=== PATIENT | female | born 1935 | race Caucasian/White ===

== ENCOUNTER 2017-08-07 18:20 | Inpatient (IN) | payer MEDICARE, BC ==
[~2017-08-07 18:20] MED LIST: ISOVUE-370 76%-LOCM 1 ML ONE
[2017-08-07 18:38] LABS: #Lymphocytes 0.4 thou/uL (1.20-3.40); #Monocytes 0.2 thou/uL (0.11-0.59); #Neutrophils 1.4 thou/uL (1.40-6.50); %Basophils 1.2 % (0.0-1.0); %Lymphocytes 18.1 % (21.0-51.0); %Monocytes 10.5 % (0.0-10.0); %Neutrophils 68.1 % (42.0-75.0); Hemoglobin 12.9 g/dL (12.0-16.0); Mean Corpuscular HGB CONC 33.7 g/dL (32.0-36.0); Mean Corpuscular Hemoglobin 29.1 pg (27.0-31.0); Mean Corpuscular Volume 86.5 fl (81.0-99.0); Mean Platelet Volume 6.5 fL (7.4-10.4); Platelet Count 218 thou/uL (130-400); RBC Distribution Width 12.1 % (11.5-14.5); Red Blood Cell (RBC) Count 4.43 mill/uL (4.20-5.40)
[2017-08-07 19:00] LABS: ALT (SGPT) 9 U/L (8-55); AST (SGOT) 15 U/L (5-34); Albumin 4.5 g/dL (3.4-4.8); Alkaline Phosphatase 46 U/L (40-150); Anion Gap 16 mmol/L (10-20); BUN (Urea Nitrogen) 30 mg/dL (9.8-20.1); Bilirubin, Total 0.6 mg/dL (0.2-1.2); Calc. Creatinine Clearance 0 mL/min (70-130); Calcium 10.6 mg/dL (7.8-10.44); Carbon Dioxide 20 mmol/L (23-31); Chloride 108 mmol/L (98-107); Estimated GFR-MDRD 39; Globulin 4.1 g/dL (2.4-3.5); Glucose 130 mg/dL (83-110); Potassium 4.5 mmol/L (3.5-5.1); Protein, Total 8.6 g/dL (6.0-8.3); Sodium 139 mmol/L (136-145)
[2017-08-07 19:05] LABS: CKMB 5.8 ng/mL (0-6.6); Troponin I Less than 0.010 ng/mL (< 0.028)
[2017-08-07] MEDS ORDERED: Ondansetron HCl/PF 4 MG/2 ML Vial ONE (19:19)
[2017-08-07] MEDS ORDERED: Sucralfate 1 GM/10 ML UDCUP ONE (19:50)
[2017-08-07 20:40] LABS: Bilirubin Negative (Negative); Blood, Urine Trace (Negative); Clarity CLOUDY (Clear); Glucose, Urine (Dipstick) Negative (Negative); Leukocyte Negative (Negative); Nitrite Negative (Negative); Protein, Urine (Dipstick) Negative (Neg-Trace); Specific Gravity, Urine 1.012 (1.002-1.036); Urobilinogen 0.2 mg/dL (0.2-1.0); pH, Urine 6.5 (5.0-9.0)
[2017-08-07 20:42] LABS: Bacteria/HPF None Seen HPF (None Seen); Squamous Epithelial 0-3 HPF (0-3)
[2017-08-07 20:43] LABS: Pathc Cast-AUWi Flag 7.12 (0-2.49)
[2017-08-07 20:51] LABS: Hyaline Casts/LPF 0-3 HYALINE CAST LPF (0-3 Hyaline)
[2017-08-07 22:05] LABS: Troponin I Less than 0.010 ng/mL (< 0.028)
--- NOTE | 2017-08-07 22:15 | CT ---
CT ABDOMEN AND PELVIS WITH IV CONTRAST: 08/07/17 HISTORY: Abdominal pain and nausea and vomiting. COMPARISON: 06/30/12 and CTA abdomen on 06/15/13. FINDINGS: There is partial visualization of cardiac pacemaking leads. The heart is mildly enlarged. There are m inimal scarring versus atelectasis at each lung base. A hiatal hernia is again present with the fundu s and proximal body of the stomach above the level of the hemidiaphragms. There is evidence of a right hemicolectomy. Small bowel colonic anastomosis seen in the mid abdomen. There are dilated fluid filled loops of small bowel with loops of bowel measuring up to [address] There is a transition to more normal caliber small bowel loops seen within the right lower quadr ant. There are postsurgical changes related to cystectomy and prior hysterectomy. There is a neobladder in the right lower quadrant right upper pelvis also seen on prior exam. There is no evidence of hydronephrosis. Subcentimeter exophytic hypodense lesions are associated with each kidney which are too small to characterize but statistically likely represents cysts. The liver , spleen, pancreas, and bilateral adrenal glands demonstrate a normal CT appearance. Vascular calcifications again seen in the abdominal aorta and iliac arteries. Postsurgical scarring in the anterior abdomen is again present. There is colonic diverticulosis. Postsurgical changes lower lumbar spine and lumbosacral junction are again present. There has been no other interval change compared to prior exams. IMPRESSION: 1. Extensive postsurgical changes of the abdomen with evidence of a partial small bowel obstruct ion with transition point in the right mid abdomen/right lower quadrant. 2. Moderate sized hiatal hernia. 3. Mild cardiomegaly. 4. Remainder of the findings are as described above. POS: [facility]
[2017-08-07] MEDS ORDERED: Ondansetron ODT 4 MG TAB SL PRN (22:34)
[2017-08-07] MEDS ORDERED: Acetaminophen 325 MG TAB PO PRN (22:34)
[2017-08-07] MEDS ORDERED: Ondansetron HCl/PF 4 MG/2 ML Vial IVP PRN (22:34)
[2017-08-07 23:06] VITALS: BMI 29.4
[2017-08-07] MEDS ORDERED: hydrALAZINE 20 MG/ML VIAL SLOW IVP PRN (23:59)
[2017-08-08 00:52] LABS: Troponin I 0.013 ng/mL (< 0.028)
[2017-08-08] MEDS: Sodium Chloride 0.9% 1,000 ML IV SCH ×2 (01:31→13:20)
[2017-08-08] MEDS ORDERED: Zolpidem Tartrate 5 MG TAB PO SCH ×3 (02:00→21:00)
[2017-08-08 05:06] LABS: ALT (SGPT) 8 U/L (8-55); AST (SGOT) 10 U/L (5-34); Albumin 3.5 g/dL (3.4-4.8); Alkaline Phosphatase 34 U/L (40-150); Anion Gap 9 mmol/L (10-20); BUN (Urea Nitrogen) 22 mg/dL (9.8-20.1); Bilirubin, Total 0.4 mg/dL (0.2-1.2); Calc. Creatinine Clearance 58 mL/min (70-130); Calcium 9.1 mg/dL (7.8-10.44); Carbon Dioxide 20 mmol/L (23-31); Chloride 114 mmol/L (98-107); Estimated GFR-MDRD 57; Globulin 2.8 g/dL (2.4-3.5); Glucose 105 mg/dL (83-110); Potassium 3.9 mmol/L (3.5-5.1); Protein, Total 6.3 g/dL (6.0-8.3); Sodium 139 mmol/L (136-145)
[2017-08-08 05:08] LABS: Band 4 % (5-11); Eosinophils 2 % (0-10); Hemoglobin 10.5 g/dL (12.0-16.0); Lymphocytes 12 % (21-51); MDiff Complete? YES; Mean Corpuscular HGB CONC 34.2 g/dL (32.0-36.0); Mean Corpuscular Hemoglobin 29.6 pg (27.0-31.0); Mean Corpuscular Volume 86.7 fl (81.0-99.0); Mean Platelet Volume 6.8 fL (7.4-10.4); Monocytes 27 % (0-10); Neutrophil 54 % (42-75); PLT Morphology Comment Appears Adequate; Platelet Count 171 thou/uL (130-400); RBC Morphology Normal; Reactive Lymphocytes 1 % (0-10); Red Blood Cell (RBC) Count 3.56 mill/uL (4.20-5.40); White Blood Cell (WBC) Count 3.2 thou/uL (4.8-10.8)
[2017-08-08] MEDS: Piperacillin/Tazobactam 4.5 GM in Sodium Chloride 0.9% 100 ML IVPB SCH ×3 (05:34→21:39)
[2017-08-08] MEDS: Heparin 5,000 UNITS/ML VIAL SC SCH ×3 (08:53→20:13)
[2017-08-08] MEDS ORDERED: Pantoprazole 40 MG VIAL IVP SCH (09:00)
[2017-08-08] MEDS ORDERED: Sotalol HCl 80 MG TAB PO SCH (09:00)
[2017-08-08] MEDS ORDERED: Famotidine/PF 20 mg/2ml Vial SLOW IVP SCH (09:00)
--- NOTE | 2017-08-08 09:26 | PDOC.PN ---
- Subjective Encounter Start Date: 08/08/17 Encounter Start Time: 08:50 Subjective: Expresses no complaint. -: Vomited last night... -: Passed some gas 2 hours ago. - Objective Resuscitation Status: Resuscitation Status FULL:Full Resuscitation Vital Signs & Weight: Vital Signs (12 hours) Temp Pulse Resp BP BP Pulse Ox 08/08/17 08:56 80 155/68 H 08/08/17 07:50 98.1 F 80 16 155/68 H 93 L 08/08/17 04:18 98.0 F 80 22 H 135/63 95 08/08/17 00:52 98.2 F 86 16 96 08/07/17 23:54 96 08/07/17 22:16 98.2 F 86 16 161/69 H 96 Weight Weight 176 lb 11.2 oz I&O: 08/07/17 08/08/17 08/09/17 06:59 06:59 06:59 Intake Total 333 Balance 333 Result Diagrams: 08/08/17 04:11 08/08/17 04:11 Phys Exam - Physical Examination Constitutional: NAD HEENT: sclera anicteric Neck: no JVD Respiratory: clear to auscultation bilateral Cardiovascular: RRR Gastrointestinal: soft (BS decreased.) Musculoskeletal: no edema Neurological: moves all 4 limbs Psychiatric: A&O x 3 Dx/Plan (1) Bowel obstruction Code(s): K56.609 - UNSP INTESTNL OBST, UNSP TO PARTIAL VERSUS COMPLETE OBST Status: Acute Plan: f/u with surgery. (2) HTN (hypertension) Code(s): I10 - ESSENTIAL (PRIMARY) HYPERTENSION Status: Acute Comment: controlled.. (3) CAD (coronary artery disease) Code(s): I25.10 - ATHSCL HEART DISEASE OF [place] CORONARY ARTERY W/O ANG PCTRS Status: Acute Plan: stable.. (4) Hypothyroidism Code(s): E03.9 - HYPOTHYROIDISM, UNSPECIFIED Status: Acute - Plan Continue current therapy -: f/u with surgery.. * .
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
[2017-08-08] MEDS ORDERED: Ondansetron HCl/PF 4 MG/2 ML Vial IVP PRN ×3 (11:39→18:52)
[2017-08-08] MEDS ORDERED: Acetaminophen 325 MG TAB PO PRN ×2 (12:00→18:52)
[2017-08-08] MEDS ORDERED: Sodium Chloride 0.9% 1,000 ML IV SCH (19:00)
[2017-08-08] MEDS ORDERED: Morphine 4 MG/ML VIAL SLOW IVP PRN (19:57)
[2017-08-08] MEDS ORDERED: HYDROcodone/Acetaminophen 5/325 mg Tablet PO PRN (19:58)
[2017-08-08] MEDS: hydrALAZINE 20 MG/ML VIAL SLOW IVP PRN (20:03)
[2017-08-08] MEDS: Pantoprazole 40 MG VIAL IVP SCH (20:11)
[2017-08-08] MEDS ORDERED: cloNIDine 0.1 MG TAB PO SCH (21:00)
[2017-08-08] MEDS: Carvedilol 6.25 MG TAB PO SCH (21:58)
[2017-08-08] MEDS: Sotalol HCl 80 MG TAB PO SCH (21:59)
[2017-08-09] MEDS ORDERED: Labetalol HCl 100 MG/20 ML VIAL SLOW IVP SCH (00:45)
[2017-08-09] MEDS: hydrALAZINE 20 MG/ML VIAL SLOW IVP PRN (04:03)
[2017-08-09] MEDS: Piperacillin/Tazobactam 4.5 GM in Sodium Chloride 0.9% 100 ML IVPB SCH ×2 (05:15→16:43)
[2017-08-09] MEDS ORDERED: Cyclobenzaprine 10 MG TAB PO PRN (08:26)
[2017-08-09] MEDS: Carvedilol 6.25 MG TAB PO SCH (08:32)
[2017-08-09] MEDS: Pantoprazole 40 MG VIAL IVP SCH (08:32)
[2017-08-09] MEDS: Sotalol HCl 80 MG TAB PO SCH (08:33)
[2017-08-09] MEDS ORDERED: Minoxidil 10 MG TAB PO SCH (09:00)
--- NOTE | 2017-08-09 09:35 | PRG ---
DATE OF SERVICE: 08/09/2017 SUBJECTIVE: Ms. Goff is upset this morning that she was not on her home meds. She has been n.p .o. She states that her nausea and vomiting has improved. Her abdominal pain is improved. She stat es that she is passing gas, although she has not had a bowel movement. PHYSICAL EXAMINATION ABDOMEN: Soft, it is less distended and nontender and she has occasional bowel sounds. IMAGING DATA: Plain film this morning does show some persistent dilation in loops of intestine, but no significant air fluid levels. There is some air in her colon. ASSESSMENT: Likely resolving partial small-bowel obstruction. My recommendation will be Gastrografi n small bowel follow through. The patient is pretty adamant that [facility] If she agrees to stay, my recommendation would be a Gastrografin small bowel follow through to c onfirm. Alternatively, could just started on clear liquids and see how she does.
--- NOTE | 2017-08-09 11:15 | RAD ---
KUB: Date: 08/09/17 INDICATION: Partial small bowel obstruction. FINDINGS: Bowel gas pattern is nonspecific, but without overt evidence of obstruction. There are surgical clips scattered within the lower abdomen and pelvis. There is an anterior lumbosacral fusion disc plate ov erlying L5-S1. Scattered degenerative change. Lung bases are clear. IMPRESSION: No acute abnormality. POS: [facility]
--- NOTE | 2017-08-09 12:28 | PQF ---
CLINICAL DOCUMENTATION IMPROVEMENT CLARIFICATION FORM: ICD-10 Updated PLEASE DO AN ADDENDUM TO THE PROGRESS NOTE WITH ANY DOCUMENTATION UPDATES OR ADDITIONS AND CARRY THROUGH TO DC SUMMARY. THANK YOU. DATE: 08/09 ATTN: DR. WILNER GILL Please exercise your independent, professional judgment in responding to the clarification form. Clinical indicators are provided on the bottom of this form for your review Please check appropriate box(s): [ ] Acute Renal Failure (ARF) / Acute Kidney Injury (STEPH) (Please specify associated condition, if applicable) [ ] Other Etiology or underlying conditions related to the diagnosis of ARF/ STEPH: [x ] Acute on Chronic Renal Failure please specify Stage of CKD ___3 (see below) [ ] CKD without ARF/STEPH please specify Stage of CKD [ ] Other diagnosis [ ] Unable to determine National Kidney Foundation Guidelines for CKD Staging Stage I Kidney damage with normal or increased GFR GFR > 90 Stage II Kidney damage with mildly decreased GFR GFR 60-89 Stage III Kidney damage with moderately decreased GFR GFR 30-59 Stage IV Kidney damage with severely decreased GFR GFR 16-29 Stage V Kidney failure GFR<15 ESRD End Stage Renal Disease On dialysis For continuity of documentation, please document condition throughout progress notes and discharge summary. Thank You. CLINICAL INDICATORS - SIGNS / SYMPTOMS / LABS BUN: 30 CR: 1.32 GFR: 39 22 .94 57 RISK FACTORS: NAUSEA/VOMITING/ DIARRHEA X3 DAYS SMALL BOWEL OBSTRUCTION TREATMENTS: 2L NS IN ER (08/07) IVF (NS 08/07 - 8) THANK YOU! Mildred (This form is maintained as a part of the permanent medical record) 2014 [employer]. All Rights Reserved Mildred Siegel RN, BSN [email or web address] Office: [phone] [facility]
--- NOTE | 2017-08-09 12:44 | PDOC.PN ---
- Subjective Encounter Start Date: 08/09/17 Encounter Start Time: 14:43 - Objective Resuscitation Status: Resuscitation Status FULL:Full Resuscitation Vital Signs & Weight: Vital Signs (12 hours) Temp Pulse Resp BP BP Pulse Ox 08/09/17 11:30 98.2 F 92 17 141/64 H 92 L 08/09/17 10:15 91 150/66 H 08/09/17 08:33 92 08/09/17 08:32 222/102 H 08/09/17 07:37 97.9 F 91 18 222/102 H 94 L 08/09/17 04:03 87 194/86 H 08/09/17 04:00 98.8 F 87 18 194/86 H 08/09/17 01:05 86 180/77 H Weight Admit Weight 176 lb 11.2 oz Weight 176 lb 11.2 oz I&O: 08/08/17 08/09/17 08/10/17 06:59 06:59 06:59 Intake Total 333 1436 Output Total 950 Balance 333 486 Result Diagrams: 08/08/17 04:11 08/08/17 04:11 Dx/Plan - Plan * . [id number] DC SUMMARY DICTATED 1. PSBO 2. UTI 3. HTN 4. AFIB plan: see orders
--- NOTE | 2017-08-09 13:02 | CON ---
DATE OF CONSULTATION: 08/08/2017 CHIEF COMPLAINT: Obstruction. HISTORY OF PRESENT ILLNESS: This is an 81-year-old female who is status post total cystectomy. She has a neobladder [place] pouch that she self catheterizations to urinate. She notes probable previou s partial small-bowel obstruction that resolved without surgery. She came to the emergency room last night because of nausea, bloating and vomiting. She has not had a bowel movement for 2 days. No si gnificant pain either last night or this morning. CT scan showed dilated small intestine consistent with partial small-bowel obstruction. PAST MEDICAL HISTORY: Hypertension, hyperlipidemia, coronary artery disease, type 2 diabetes. PAST SURGICAL HISTORY: Includes pacemaker, appendectomy, hysterectomy, tonsillectomy, left total kne e, Roxi bladder pouch and total cystectomy. MEDICINES: See list. SOCIAL HISTORY: , drinks daily. No smoking. No other drugs. FAMILY HISTORY: Noncontributory to GI malignancy or anesthetic related complications. ALLERGIES: No drug allergies. REVIEW OF SYSTEMS: Ten system review of systems otherwise negative unless described above. PHYSICAL EXAMINATION: VITAL SIGNS: Blood pressure 125/68, pulse 80, respirations 16. She is afebrile. HEENT: Sclerae are anicteric. Oropharynx clear. NECK: No lymphadenopathy. CHEST: Clear. HEART: Regular rate and rhythm. ABDOMEN: Soft, nondistended, nontender. She has active bowel sounds. There is a dressing over her pouch stoma and on the right. No obvious abdominal or inguinal hernias. EXTREMITIES: No ischemia or edema to extremities. LABORATORY DATA: White cell count is 3, hemoglobin 10, platelet count is 171. Sodium 139, potassium 3.9, creatinine 0.94. CT scan as above. ASSESSMENT: Partial small-bowel obstruction, likely resolving with active bowel sounds now, but stil l having mild nausea. PLAN: N.p.o. today except ice chips. Tomorrow if not passing gas or having a bowel movement, we maikel l obtain Gastrografin small bowel follow-through. We will follow with you.
[2017-08-09] MEDS: Heparin 5,000 UNITS/ML VIAL SC SCH ×2 (15:21→15:25)
[2017-08-09 15:58] VITALS: BP 145/66; TEMP 97.7
--- NOTE | 2017-08-09 21:29 | DIS ---
DATE OF ADMISSION: 08/08/2017 DATE OF DISCHARGE: 08/09/2017 DISCHARGE DIAGNOSES: 1. Partial small-bowel obstruction, resolved. 2. Urinary tract infection. 3. Hypertension. 4. History of atrial fibrillation. 5. Abdominal pain, resolved. DISCHARGE CONDITION: Stable. DISPOSITION: Home. DISCHARGE MEDICATION: See med rec form. HISTORY OF PRESENT ILLNESS: See HPI. CONSULTANTS DURING THE HOSPITAL STAY: General Surgery. PROCEDURE DURING HOSPITAL STAY: X-ray. ASSESSMENT AND PLAN: The patient is an 81-year-old female. 1. Partial small-bowel obstruction. The patient did have x-ray done which showed partial small-shannan l obstruction. Repeat x-ray showed it was resolved and the patient was seen by General Surgery who r ecommended Gastrografin enema, but patient refused to do it and wants to go home. Patient was starte d on liquid diet. If patient tolerates soft diet, we will go ahead and discharge the patient. 2. Hypertension. Blood pressure monitored during the hospital stay and was stable. Advised to cont inue same medications. 3. History of atrial fibrillation with a heart rate monitored during the hospital stay and was stabl e. Advised to continue home medication. 4. Urinary tract infection. The patient was treated with IV antibiotics. Cultures were negative. At that time of discharge, the patient was discharged on p.o. antibiotics. I did request that the pa tient will wait for the cultures and for the x-ray results also, patient refused to stay. I advised the patient to follow with the PCP for the culture results. The patient agreed with the plan. PHYSICAL EXAMINATION: VITAL SIGNS: Blood pressure is 141/64, heart rate is 92, pulse ox 92-94% on room air, temperature 98 .2. GENERAL: The patient is comfortable. CARDIOVASCULAR: S1, S2. RESPIRATORY: No wheezing, no rhonchi. GASTROINTESTINAL: Abdomen is soft, no guarding. Positive for bowel sounds. MUSCULOSKELETAL: No edema. NEUROLOGIC: The patient is stable at the time. DISCHARGE TIME: 40 minutes.
--- NOTE | 2017-08-16 10:29 | PQF ---
LATESHA BAKER Anil [id number] [facility]-262 [id number] CLINICAL DOCUMENTATION CLARIFICATION FORM: POST DISCHARGE Addendum to original discharge summary date: 08/09/2017 DATE: 08/16/2017 ATTN: Dr. Macdonald Please exercise your independent, professional judgment in responding to the clarification form. Clinical indicators are provided on the bottom of this form for your review Please check appropriate box(s): [ ] UTI please specify if due to or related to (as applicable): [ ] Self-catheterization [ ] Unable to determine etiology UTI Site: [ ] Kidney [ ] Ureter [ ] Bladder [ ] Urethra [ ] Unable to determine Specify Organism (if known): [ ] Unknown organism [ ] Other diagnosis (please specify) [ ] Unable to determine In addition, please specify: Present on Admission (POA): [ ] Yes [ ] No [ ] Unable to determine For continuity of documentation, please document condition throughout progress notes and discharge summary. Thank You. CLINICAL INDICATORS - SIGNS / SYMPTOMS / LABS (per H&P) UA is significant for trace ketones, trace blood, greater than 50 WBC's. Documentation: UTI RISK FACTORS (per H&P) [place] pouch due to history of bladder cancer. History self-cath every several hours at home. TREATMENT: (per medications) IV Zosyn q 8. IVF. (This form is maintained as a part of the permanent medical record) 2014 [employer]. All Rights Reserved Maria Dolores [email or web address] [phone] CARLOS A
== END 2017-08-09 17:08 | disposition home or self-care (01) | DRG 389 ==
LOC: ERS 18:20 → OBSVTOIN 21:45 → 2SW 21:45 → 2NO 08-08 15:35 → UNDODISIN 08-08 16:00
PROVIDERS: ADMIT Internal Medicine; ATTEND Internal Medicine
DX: K56.600 Partial intestinal obstruction, unspecified as to cause (principal); N39.0 Urinary tract infection, site not specified; N17.9 Acute kidney failure, unspecified; I48.0 Paroxysmal atrial fibrillation; E11.22 Type 2 diabetes mellitus with diabetic chronic kidney disease; I12.9 Hypertensive chronic kidney disease with stage 1 through stage 4 chronic kidney disease, or unspecified chronic kidney disease; N18.3 Chronic kidney disease, stage 3 (moderate); E78.5 Hyperlipidemia, unspecified; I25.10 Atherosclerotic heart disease of native coronary artery without angina pectoris; E03.9 Hypothyroidism, unspecified; Z85.51 Personal history of malignant neoplasm of bladder; Z95.0 Presence of cardiac pacemaker; Z96.652 Presence of left artificial knee joint; Z79.899 Other long term (current) drug therapy; Z90.6 Acquired absence of other parts of urinary tract
CPT/HCPCS: 36415; 74018; 74177; 80053; 81003; 81015; 82553; 83605; 83690; 84484; 85025; 87086; 93005; 93306; 94760; 96361; 96374; A4216; C9113; G8978-GP-CI; G8979-GP-CH; J0360; J1644; J2270; J2405; J2543; J7050

== ENCOUNTER 2017-09-21 13:22 | Day surgery (SDC) | payer MEDICARE, BC ==
[~2017-09-21 13:22] MED LIST changes: -ISOVUE-370 76%-LOCM 1 ML ONE; +PROPOFOL 200 MG/20 ML VIAL ONE
[2017-09-21] MEDS ORDERED: PROPOFOL 20 ML ONE (14:57)
--- NOTE | 2017-09-21 15:47 | OP ---
ELECTRICAL CARDIOVERSION: Date: 09/21/17 This patient was seen in the outpatient facility to undergo electrical cardioversion of atrial flutt er. She was given short acting propofol and when she was sedated, using one attempt at 200 joules, kylah michael was successfully converted from atrial flutter back to normal sinus rhythm. Heart rate is in the 80 s. She had atrial sensing and ventricular pacing. Blood pressure was somewhat hypotensive. Earlier in the office today, blood pressure was also hypotensive, in the 80s systolic. After the cardioversion, her blood pressure also remained on the low side. We will continue to follow her and if this does no t correct, she will be admitted. The blood pressure at this time after the cardioversion was 78/40. O 2 saturations 100%. The patient is awake and alert. She is still somewhat sedated, but is easily arou sable. There were no other complications or difficulties encountered.
--- NOTE | 2017-09-22 01:44 | DIS ---
DATE OF ADMISSION: 09/21/2017 DATE OF DISCHARGE: 09/21/2017 She was seen in the outpatient facility today after she was found to have atrial flutter today in the office with right ventricular response. She was advised to undergo an electrical cardioversion of a trial flutter back to sinus rhythm. Her other admitting diagnoses include intermittent atrial fibril lation, multiple episodes of ablations, also for ventricular tachycardia she has had an ablation and also for atrial fibrillation and possibly flutter ablations. ADMITTING DIAGNOSES: Include hypertension, diabetes and dyslipidemia. DISCHARGE DIAGNOSES: Include hypertension, diabetes and dyslipidemia. PROCEDURE IN HOSPITAL: Included electrocardioversion of atrial flutter back to normal sinus rhythm. She also has a history of pacemaker insertion. DISCHARGE MEDICATIONS: Same as her admission medications. These include Ambien, hydrocodone/acetami nophen, omeprazole, vitamin D3, Lyrica, tizanidine, Premarin, fish oil, Zyrtec, vitamin B12, Flonase, adenosine, lisinopril/hydrochlorothiazide, [place] Thyroid, potassium or KCl, clonidine, Xarelto, Cor eg, Lasix, sotalol 120 mg b.i.d. and minoxidil 10 mg b.i.d. Her medications have not changed. Please refer to the previous notes and the admission H and P for h er complete list of medications. HOSPITAL COURSE: This unfortunate 82-year-old female has intermittent atrial fibrillation and flutte r. Today, she was seen in the office with rapid ventricular response to atrial flutter and underwent electrical cardioversion today without difficulties or complications and converted back to sinus rhy thm. Blood pressure has remained on the low side. Otherwise, she has remained stable and is asympto matic with the hypotension. We will continue to follow the patient. Should she remain hypotensive, she may need to be monitored overnight and I will refer her in the future to the procedures analyst for possible repeat ablation of the atrial fibrillation or flutter.
== END 2017-09-21 16:35 | disposition home or self-care (01) ==
LOC: SDC 13:22
PROVIDERS: ATTEND Internal Medicine Cardiovascular Disease
DX: I48.4 Atypical atrial flutter (principal); I48.0 Paroxysmal atrial fibrillation; I10 Essential (primary) hypertension; I25.10 Atherosclerotic heart disease of native coronary artery without angina pectoris; E78.5 Hyperlipidemia, unspecified; E03.9 Hypothyroidism, unspecified; E11.9 Type 2 diabetes mellitus without complications; R60.0 Localized edema; Z95.0 Presence of cardiac pacemaker; Z79.01 Long term (current) use of anticoagulants; Z79.899 Other long term (current) drug therapy; Z87.891 Personal history of nicotine dependence; Z88.0 Allergy status to penicillin; Z88.2 Allergy status to sulfonamides
CPT/HCPCS: 92960; J2704

== ENCOUNTER 2019-02-27 20:20 | Inpatient (IN) | payer MEDICARE, BC ==
--- NOTE | 2019-02-27 21:08 | RAD ---
Chest AP view INDICATION: Shortness of breath history of bladder cancer COMPARISON: December 07, 2018 FINDINGS: Lungs:No consolidation is present. There is a skinfold overlying the left hemithorax. Cardiac silhouette:Moderately enlarged Pulmonary vasculature:Moderate congestion Pleural spaces:Small bilateral pleural effusions Upper abdomen:No abnormality seen. Osseous structures: Left total shoulder replacement has occurred in the interim. No acute fracture. Additional findings:Dual-lead pacemaker overlying left chest wall. IMPRESSION: Findings suggesting mild CHF.
[2019-02-27 21:09] LABS: Mean Corpuscular Volume 80.1 fL (78.0-98.0)
[2019-02-27 21:13] LABS: ALT (SGPT) 14 U/L (8-55); AST (SGOT) 24 U/L (5-34); Albumin 4.1 g/dL (3.4-4.8); Alkaline Phosphatase 54 U/L (40-110); Anion Gap 16 mmol/L (10-20); BUN (Urea Nitrogen) 24 mg/dL (9.8-20.1); Bilirubin, Total 0.8 mg/dL (0.2-1.2); Calc. Creatinine Clearance 0 mL/min (70-130); Calcium 9.6 mg/dL (7.8-10.44); Carbon Dioxide 18 mmol/L (23-31); Chloride 96 mmol/L (98-107); Estimated GFR-MDRD 34; Globulin 3.5 g/dL (2.4-3.5); Glucose 158 mg/dL (83-110); Potassium 3.9 mmol/L (3.5-5.1); Protein, Total 7.6 g/dL (6.0-8.3); Sodium 126 mmol/L (136-145)
[2019-02-27 21:29] LABS: Band 4 % (5-11); Eosinophils 5 % (0-10); Lymphocytes 24 % (21-51); MDiff Complete? YES; Mean Corpuscular HGB CONC 31.9 g/dL (32.0-36.0); Mean Corpuscular Hemoglobin 25.5 pg (27.0-31.0); Mean Platelet Volume 8.2 fL (7.4-10.4); Monocytes 10 % (0-10); Neutrophil 57 % (42-75); Platelet Count 194 thou/uL (130-400); RBC Distribution Width 13.8 % (11.5-14.5); Red Blood Cell (RBC) Count 3.93 mill/uL (4.20-5.40)
[2019-02-27 22:09] LABS: CKMB 4.2 ng/mL (0-6.6)
--- NOTE | 2019-02-27 22:25 | CT ---
CT OF THE ABDOMEN AND PELVIS WITHOUT IV CONTRAST INDICATION: Inability urinate with abdominal fullness COMPARISON: CT the abdomen and pelvis with contrast dated August 07, 2017 FINDINGS: This examination is limited for the evaluation of solid organs and vascular structures due to the lac k of intravenous contrast. ABDOMEN: Lung bases: There is a small right pleural effusion and right basilar atelectasis. There is a moderat e hiatal hernia. Liver: No focal lesion. Gallbladder: Normal appearing. Pancreas: Normal. Adrenal glands: Normal. Spleen: Normal. Kidneys and ureters: There are stable exophytic right renal cysts. There is new mild right hydronephr osis. Small left renal cysts are stable. No left-sided hydronephrosis is demonstrated. Vasculature: Stable moderate to severe calcifications involving the abdominal pelvic vasculature. Lymph nodes:No lymphadenopathy. Free fluid in abdomen:No free fluid is evident. PELVIS: Small and large bowel: Stable is scattered colonic diverticulosis. Stable postsurgical change of a ri ght hemicolectomy and ileocolonic anastomosis within the upper midline abdomen. There is no evidence of small bowel obstruction. There is a neobladder formation in the right lower quadrant of t he abdomen. Appendix:Surgically absent Bladder: Surgically absent. There is a neobladder in the right lower quadrant of the abdomen. There i s urqd-[id number]-dsktlios distention of the neobladder. Rectal and perirectal soft tissues:Normal. Reproductive structures: Surgically absent Free fluid in pelvis: No free fluid is evident. Lymphadenopathy pelvis: No lymphadenopathy is evident. Osseous structures: There is interbody fusion of L4-S1. There is scattered degenerative and osteoarth ritic change present. No acute fracture or subluxation demonstrated. Soft tissues:Mild anasarca IMPRESSION: 1. Mild to moderate distention of the neobladder. There is mild right hydronephrosis. 2. Bilateral renal cysts 3. Small right pleural effusion with mild diffuse anasarca
[2019-02-28 00:41] LABS: Troponin I 0.198 ng/mL (< 0.028)
[2019-02-28 03:18] LABS: Troponin I 0.215 ng/mL (< 0.028)
[2019-02-28] MEDS ORDERED: Acetaminophen 325 MG TAB PO PRN (03:21)
[2019-02-28] MEDS ORDERED: HYDROcodone/Acetaminophen 5/325 mg Tablet ONE ×2 (03:33→06:49)
[2019-02-28] MEDS: HYDROcodone/Acetaminophen 5/325 mg Tablet PO PRN ×3 (03:35→19:13)
[2019-02-28] MEDS ORDERED: Cyclobenzaprine 10 MG TAB PO PRN (10:51)
[2019-02-28] MEDS ORDERED: Ondansetron PF 4 MG/2 ML Vial IVP PRN (10:56)
[2019-02-28] MEDS ORDERED: Senokot S 8.6-50 MG TAB PO PRN (10:56)
[2019-02-28] MEDS ORDERED: Morphine 2 MG/ML SYRINGE SLOW IVP PRN (11:12)
[2019-02-28] MEDS ORDERED: Morphine 4 MG/ML VIAL ONE (11:38)
[2019-02-28 12:18] LABS: Albumin 4.3 g/dL (3.4-4.8); Anion Gap 15 mmol/L (10-20); BUN (Urea Nitrogen) 26 mg/dL (9.8-20.1); BUN/Creatinine Ratio 19.26; Calc. Creatinine Clearance 0 mL/min (70-130); Carbon Dioxide 24 mmol/L (23-31); Chloride 97 mmol/L (98-107); Estimated GFR-MDRD 37; Glucose 126 mg/dL (83-110); Phosphorus 3.3 mg/dL (2.3-4.7); Sodium 132 mmol/L (136-145)
--- NOTE | 2019-02-28 12:43 | HP ---
PRESENTING COMPLAINT: Abdominal discomfort and low urine output in [place] pouch and swelling of the feet. HISTORY OF PRESENT ILLNESS: The patient with a past medical history of atrial flutter fibrillation, hyperlipidemia, history of pacemaker; history of bladder cancer, status post bladder surgery and status post placement of Roxi pouch 6 years ago, presented with abdominal discomfort and less passing urine from last 1 day. As per the patient from last 10 days, she has been feeling more shortness of breath, more swelling of the feet and she went to see her commercial loan assistant, Dr. Calvert and increased her Lasix, but as per the patient, she was having abdominal discomfort and less urine output in her Roxi pouch, usually she pees 3 to 4 liters in a day , but since yesterday she has pee'd only 500 mL. Feels little nauseas. Denies vomiting or diarrhea. Also feels little chest tightness and shortness of breath and worsening swelling of the feet. Denies vomiting, feeling of little feverish. Denies any joint pain or rash. CAT scan performed in the emergency room showed a toqi-bv-[id number] distention of the neobladder, mild right hydronephrosis, bilateral renal cyst, small right pleural effusion, and mild diffuse anasarca. Chest x- ray shows suggesting mild CHF and the lab work showed mildly positive troponin with hyponatremia. The patient being admitted for further evaluation. SYSTEMIC REVIEW: As mentioned above. PAST MEDICAL HISTORY: As mentioned above. PAST SURGICAL HISTORY: 1. History of bladder cancer surgery, status post neobladder formation in 2011. 2. History of pacemaker placement. 3. The patient also had back surgery. 4. Appendicectomy. 5. Hysterectomy. 6. Left total knee replacement. 7. Thyroidectomy. 8. Left shoulder surgery. ALLERGIES: PINEAPPLE. FAMILY HISTORY: Reviewed and noncontributory. HOME MEDICATIONS: 1. Cholecalciferol. 2. Omeprazole. 3. Sotalol. 4. Zolpidem. 5. Zofran. 6. Tylenol. 7. Lyrica. 8. Fish oil. 9. Levsin. 10. Coreg. 11. Senakot. 12. Catapres. 13. Flexeril. 14. Omnicef. 15. Premarin. 16. Narco. 17. Morphine. 18. Zyrtec. 19. Minoxidil. 20. Foster Thyroid. PHYSICAL EXAMINATION: VITAL SIGNS: Blood pressure 110/66; pulse 110, irregularly irregular; and temperature 97.6. GENERAL: The patient is sitting in bed comfortably, not in any distress. Looks little weak. HEENT: Conjunctivae are normal. Oral mucosa moist. NECK: Supple. No JVD. No lymphadenopathy. CHEST: Decreased air entry bilaterally. Low lung [place]. HEART: Sound normal. ABDOMEN: The neobladder distention with abdominal distention noted. EXTREMITIES: Bilateral edema of feet positive, right more than the left. LABORATORY DATA: CBC unremarkable. Hemoglobin 10.0 and platelet 194. CMP unremarkable except sodium 126, creatinine 1.48, and blood glucose 158. Troponin 0.253 and 0.215. ProBNP 838. LFTs normal. EKG with atrial flutter with atrial fibrillation with heart rate 111. IMPRESSION: 1. Abdominal distention, abdominal discomfort most likely related to neobladder distention with right hydronephrosis. As per the patient, she self catheterizes usually, but usual than less urine passed last 24 hours. Usually, she passes around 3 to 4 liters, but only has passed 500 mL. I will get Urology evaluation if any intervention needed. 2. Acute on chronic possible diastolic congestive heart failure. 3. Status post pacemaker placement. The patient given Lasix double dosage yesterday, but did not pass much urine since yesterday . We will get Cardiology evaluation. The patient definitely has worsening swelling of the feet and edema of feet and congestive heart failure. Possible symptoms may be aggravated by less urine output by neobladder. get Cardiology evaluation. We will continue Lasix at present. Nephrology been also consulted along with Cardiology. 4. Atrial fibrillation with rapid ventricular rate. Heart rate is between 100 and 110, most likely related to abdominal discomfort. Continue home dose of sotalol and metoprolol. We will start oral anticoagulation once evaluated by Urology if no intervention needed. 5. Acute kidney injury with hyponatremia, most likely secondary to fluid overload. Nephrology been consulted for further evaluation. 6. Advanced directive discussed with the patient and daughter. The patient is DNR/DNI. Plan discussed with the patient, daughter, and nursing staff in detail. Job ID: [id number] [facility]
--- NOTE | 2019-02-28 12:52 | CON ---
DATE OF CONSULTATION: 02/28/2019 REQUESTING PHYSICIAN: Dr. Jemal Hathaway. REASON FOR CONSULTATION: Acute kidney injury and hyponatremia. HISTORY OF PRESENT ILLNESS: An 83-year-old female with multiple comorbidities including paroxysmal atrial fibrillation and sick sinus syndrome, status post pacemaker placement; bladder cancer, status post bladder resection with [place] pouch creation; hypertension; amongst others; who presented to the ED due to poor urine drainage and worsening leg swelling. The patient reported that in the last few days, she had developed worsening bilateral leg swelling associated with some difficulty breathing, hence was advised by her active directory specialist to increase her Lasix from 20 daily to 80 daily. However, despite increase in diuretics, she noticed poor urine drainage as well as ill feeling and abdominal discomfort, hence presentation to the ER. Evaluation in the ER showed paroxysmal atrial fibrillation with tachyarrhythmia as well as hyponatremia with sodium 126 as well as acute elevation in creatinine to 1.48. The patient also was found to have elevated troponin of 0.253 and BNP of 838. Further evaluation with CT scan of the abdomen and pelvis without contrast showed [id number] distention of the neobladder as well as mild right hydronephrosis. The patient is admitted by the Hospitalist Service and Nephrology is consulted for further evaluation and treatment. She reported nausea, but denied vomiting. She also denied frequent loose stools. Admitted to some chest discomfort as well as shortness of breath and abdominal discomfort, but denied fever or headache or focal weakness. She denied NSAID use or change in medications other than increase in diuretic. PAST MEDICAL HISTORY: 1. Hypertension. 2. Hyperlipidemia. 3. Coronary artery disease. 4. Atrial fibrillation. 5. Type 2 diabetes mellitus. 6. Hypothyroidism. 7. Degenerative joint disease. 8. Bladder cancer. 9. Diastolic heart failure. PAST SURGICAL HISTORY: 1. Back surgery. 2. Roxi bladder pouch creation. 3. Bladder resection. 4. Left total knee replacement. 5. Tonsillectomy. 6. Hysterectomy. 7. Appendectomy. 8. Pacemaker placement. 9. Cardioversion. FAMILY HISTORY: Significant for cardiovascular disease. SOCIAL HISTORY: The patient is . Lives with family. Drinks alcohol intermittently. Denied recreational drug use or tobacco use. ALLERGIES: PINEAPPLE. HOME MEDICATIONS: 1. Cyanocobalamin 1000 mcg p.o. daily. 2. Carvedilol 12.5 mg p.o. b.i.d. 3. Zyrtec 10 mg p.o. daily at bedtime. 4. Vitamin D 2000 units p.o. daily. 5. Clonidine 0.1 mg p.o. daily at bedtime. 6. Flexeril 10 mg p.o. t.i.d. 7. Estrogen conjugated 0.3 mg p.o. daily. 8. Fish oil 1000 mg p.o. daily. 9. Hydrocodone/acetaminophen 5/325 one to two tablets p.o. q.i.d. p.r.n. for pain. 10. Hyoscine 0.25 mg p.o. daily. 11. Lisinopril/hydrochlorothiazide 20/12.5 mg p.o. b.i.d. 12. Minoxidil 20 mg p.o. daily. 13. Omeprazole 40 mg p.o. daily. 14. Lyrica 100 mg p.o. daily at bedtime. 15. Xarelto 20 mg p.o. daily. 16. Sotalol 120 mg p.o. daily. 17. Zolpidem 10 mg p.o. daily at bedtime. REVIEW OF SYSTEMS: 12-point review of system performed was negative other than pertinent positives and negatives included in the history of present illness. PHYSICAL EXAMINATION: VITAL SIGNS: Temperature 99, pulse 110, respiratory rate 17, SpO2 of 92% on room air, blood pressure is 134/60. GENERAL: Elderly female, in mild discomfort. Afebrile. Anicteric. Acyanotic. HEENT: Normocephalic and atraumatic. Oral mucosa is moist. NECK: Supple, nontender with no masses or lymphadenopathy. CARDIOVASCULAR: Irregular rhythm and rate. Tachycardic with normal heart sounds one and two. RESPIRATORY: Fair air entry bilaterally with few bibasilar crackles. No obvious rhonchi or use of accessory muscles was appreciated. GI: Abdomen is full, soft with no obvious tenderness. Bowel sound is normoactive. Right lower quadrant ostomy noted. EXTREMITIES: Wlugknwh-rp-qlaske bilateral leg edema, right more than left noted. No obvious erythema or bruises was appreciated. BEHAVIORAL PSYCHOLOGIST: Conscious, alert, oriented x3 with appropriate mental status. Cranial nerves 2 through 12 are grossly intact. DIAGNOSTIC DATA: CBC showed WBC count of 4.0, hemoglobin of 10.0, MCV of 80, platelets of 194. CMP performed on February 27, showed sodium 126, potassium 3.9, chloride 96, CO2 of 18, BUN 24, creatinine 1.48, glucose 158, calcium 9.6, total bilirubin 0.8, AST 24, ALT 14, alkaline phosphatase 54, total protein 7.6, albumin 4.1, globulin 3.5. Of note, however, it is deferred that sodium was 138 on December 05, 2018, and creatinine also was 1.08 on December 05, 2018. Cardiac markers showed CK-MB 4.2, troponin 0.253, and BNP of 838. IMAGING STUDIES: EKG showed atrial fibrillation with controlled ventricular response of 86. No obvious ischemic changes were noted. Chest x-ray performed on February 27, 2019, showed moderate pulmonary vascular congestion as well as small bilateral pleural effusion. Features are suggestive of mild CHF. CT scan of the abdomen and pelvis without contrast showed [id number] distention of the neobladder with mild right hydronephrosis, bilateral renal cyst as well as small right pleural effusion with diffuse anasarca. ASSESSMENT: 1. Acute kidney injury: This is most likely related to hemodynamic factors from poor perfusion due to cardiac decompensation. The patient seems hypervolemic. Also, she is on lisinopril with escalation of diuretics. Oral intake in the last few days has been poor as well. 2. Hyponatremia: Acute. Sodium on presentation on February 27 was 126. Review of medical records showed the patient had normal sodium of 138 on December 05, 2018. Etiology most likely is due to appropriate and inappropriate ADH secretion from nausea and vomiting as well as from volume contraction due to poor perfusion and diuretic therapy and congestive heart failure. 3. Metabolic acidosis: Due to acute kidney injury. 4. Volume overload: Due to cardiac decompensation. 5. Atrial fibrillation with rapid ventricular response. 6. Acute on chronic heart failure. 7. Elevated troponin. 8. Right hydronephrosis with distention of neobladder. PLAN: 1. We will get urinalysis as well as urine electrolytes. We will also get urine and plasma osmolality. 2. We will get bladder scan to make sure that the neobladder is draining fully. 3. We will defer treatment of CHF to primary attending and active directory specialist. However, there is no contraindication to diuretics at this time as the patient is fluid overloaded. We will get repeat renal function panel to know the current status of electrolytes and renal function at this time. Other treatment as per primary attending, urologist, and active directory specialist. Care plan was discussed with the patient and daughter at the bedside and they verbalized understanding. Further treatment to follow depending on hospital course and review of other diagnostic test. Many thanks for involving us in the care of this patient. We will follow along with you. Job ID: [id number]
[2019-02-28 14:11] VITALS: BMI 29.8
[2019-02-28 17:08] LABS: Bilirubin Negative (Negative); Blood, Urine Moderate (Negative); Glucose, Urine (Dipstick) Negative (Negative); Leukocyte Trace (Negative); Nitrite Negative (Negative); Protein, Urine (Dipstick) Trace mg/dL (Neg-Trace); Urobilinogen 0.2 mg/dL (Less than 2)
[2019-02-28 17:09] LABS: Clarity Clear (Clear)
[2019-02-28 17:16] LABS: Bacteria/HPF 2+ HPF (None Seen); Squamous Epithelial None Seen HPF (0-3); Transitional Epithelial 0-3 HPF (None Seen)
[2019-02-28 17:25] LABS: Urine Culture Reflex Yes Yes
[2019-02-28 17:35] LABS: Creatinine, Urine 41.07 mg/dL (47-110)
[2019-02-28] MEDS ORDERED: Furosemide 20 MG/2 ML VIAL SLOW IVP SCH (18:30)
[2019-02-28] MEDS: Sotalol HCl 80 MG TAB PO SCH (19:12)
[2019-02-28] MEDS: Carvedilol 25 MG TAB PO SCH (19:13)
[2019-02-28] MEDS ORDERED: Pregabalin 25 MG CAP PO SCH (21:00)
[2019-02-28] MEDS ORDERED: Loratadine 10 MG TAB PO SCH (21:00)
[2019-02-28] MEDS ORDERED: cloNIDine 0.1 MG TAB PO SCH (21:00)
[2019-02-28] MEDS ORDERED: Zolpidem Tartrate 5 MG TAB PO SCH (21:00)
[2019-02-28] MEDS: Fish Oil 1,000 MG CAP PO SCH (21:17)
[2019-02-28] MEDS: Cefdinir 300 MG CAP PO SCH (21:18)
--- NOTE | 2019-02-28 22:27 | CON ---
DATE OF CONSULTATION: 02/28/2019 REASON FOR CONSULTATION: Abnormal CT scan, possible obstruction to urine output. HISTORY OF PRESENT ILLNESS: Ms. Goff is an 83-year-old female with a significant prior urologic history of bladder cancer, status post radical cystectomy with [place] pouch formation. She recently developed progressive lower extremity swelling and was seen by her engineering professionals, who doubled her Lasix dose. She felt that there was very little output and in fact feels that her urinary output has decreased over the last 24 to 48 hours. She has also developed some shortness of breath and worsening of the lower extremity swelling. A CT scan was performed in the emergency room for evaluation, which demonstrated some mild hydronephrosis. She states that she has had no significant difficulty with catheterizing her stoma, although at times, she gets a small output. As mentioned above, she has a significant prior urologic history of bladder cancer. She is status post cystectomy with Roxi pouch urinary diversion in [place] [address] Eric Vargas. She has been followed in our office by Dr. Singh. Her most recent laboratory at [facility] demonstrated a creatinine of 1.15 on 12/25. On 12/24/2018, her creatinine was 1.6 and her creatinines do vary in general between 0.9 and 1.8 in the month of December. CT scan in May 2018 for staging demonstrates some mild right-sided hydronephrosis. When compared to the current CT scan, there are no significant changes in the hydronephrosis or distention of the neobladder. PAST MEDICAL HISTORY: 1. Bladder cancer. 2. Congestive heart failure. 3. Hypertension. PAST SURGICAL HISTORY: 1. Thyroidectomy. 2. Hysterectomy. 3. Cholecystectomy. 4. Radical cystectomy with [place] pouch urinary diversion in 10/[address] Eric Vargas. 5. Back surgery. 6. Left shoulder surgery. 7. Left total knee replacement. 8. Pacemaker placement. CHRONIC MEDICATIONS: Include; 1. Coreg. 2. Vitamins. 3. Jyothi. 4. Lisinopril. 5. Hydrochlorothiazide. 6. Lyrica. 7. Xarelto. 8. Betapace. 9. Ambien. ALLERGIES: PINEAPPLE. REVIEW OF SYSTEMS: RESPIRATORY: Shortness of breath has been slowly worsening over the last several days. CARDIOVASCULAR: She has some mild chest tightness, but no acute pain. GASTROINTESTINAL: Denies chronic constipation or diarrhea. GENITOURINARY: Please see history of present illness. NEUROLOGIC: No history of stroke. No recent focal deficits to complain of. DERMATOLOGIC: No chronic skin issues. PHYSICAL EXAMINATION: GENERAL: She is awake and alert. She is in no distress. She appears healthy. She appears younger than her stated age. VITAL SIGNS: Blood pressure 138/82, pulse 82, respiratory rate 16. HEENT: Normocephalic, atraumatic. NECK: Supple. No masses. CHEST: Clear to auscultation. CARDIOVASCULAR: No murmurs auscultated. ABDOMEN: She has a right lower quadrant stoma. EXTREMITIES: Bilateral edema is present. I observed the patient is catheterizing her stoma, she catheterizes without difficulty. 250 mL of yellow urine obtained. Catheter was irrigated. There was very minimal mucus. LABORATORY DATA: Creatinine 1.35. White count 4, hemoglobin 10, hematocrit 31.4. IMPRESSION: Ms. Goff is an 83-year-old female with what appears to be worsening congestive heart failure. There is no evidence of urinary retention. On comparison of her CT scan today to CT scan in May 2018, there is no change noted. She has some mild right-sided hydronephrosis and hydroureter most likely related to reflux from her [place] pouch. The pouch is easily catheterizable and drains clear yellow urine. It has not distended on the CT scan. Diminished urine output is not from obstruction, but from poor urine output and poor response to her Lasix. Rather than placing a Spence catheter in the [place] pouch, which I believe will probably result in additional problems. I would recommend she continue intermittent catheterization for her urine output. This may need to be performed on a more frequent basis if she is aggressively diuresed. RECOMMENDATIONS: 1. The patient to perform intermittent catheterization for urine output. She can irrigate the catheter p.r.n. 2. No further workup is necessary for diminished urine output from urologic standpoint as there are no signs of obstruction. Job ID: [id number]
[2019-03-01 06:22] LABS: ALT (SGPT) 10 U/L (8-55); AST (SGOT) 15 U/L (5-34); Albumin 3.6 g/dL (3.4-4.8); Alkaline Phosphatase 44 U/L (40-110); Anion Gap 13 mmol/L (10-20); BUN (Urea Nitrogen) 20 mg/dL (9.8-20.1); Bilirubin, Total 0.7 mg/dL (0.2-1.2); Calc. Creatinine Clearance 45 mL/min (70-130); Calcium 9.2 mg/dL (7.8-10.44); Carbon Dioxide 23 mmol/L (23-31); Chloride 99 mmol/L (98-107); Estimated GFR-MDRD 42; Glucose 101 mg/dL (83-110); Potassium 3.9 mmol/L (3.5-5.1); Protein, Total 6.6 g/dL (6.0-8.3); Sodium 131 mmol/L (136-145)
[2019-03-01 06:39] LABS: Band 1 % (5-11); Eosinophils 10 % (0-10); Hemoglobin 9.4 g/dL (12.0-16.0); Lymphocytes 24 % (21-51); MDiff Complete? YES; Mean Corpuscular HGB CONC 32.6 g/dL (32.0-36.0); Mean Platelet Volume 7.5 fL (7.4-10.4); Monocytes 14 % (0-10); Neutrophil 51 % (42-75); Platelet Count 183 thou/uL (130-400); RBC Distribution Width 13.5 % (11.5-14.5); Red Blood Cell (RBC) Count 3.61 mill/uL (4.20-5.40); White Blood Cell (WBC) Count 2.9 thou/uL (4.8-10.8)
[2019-03-01] MEDS ORDERED: Loratadine 10 MG TAB PO SCH (09:00)
[2019-03-01] MEDS ORDERED: Furosemide 20 MG TAB PO SCH (09:00)
[2019-03-01] MEDS ORDERED: FLU VACC TS2019-20(65YR UP)/PF 180 MCG/0.5 ML SYRINGE IM ONE (09:00)
[2019-03-01] MEDS ORDERED: Minoxidil 10 MG TAB PO SCH (09:00)
[2019-03-01] MEDS ORDERED: Rivaroxaban 10 MG TAB PO SCH (09:00)
[2019-03-01] MEDS ORDERED: Estrogens, Conjugated 0.3 MG TAB PO SCH (09:00)
[2019-03-01] MEDS ORDERED: Thyroid 30 MG TAB PO SCH (09:00)
[2019-03-01] MEDS: Sotalol HCl 80 MG TAB PO SCH (10:15)
[2019-03-01] MEDS: Fish Oil 1,000 MG CAP PO SCH (10:16)
[2019-03-01] MEDS: Cefdinir 300 MG CAP PO SCH (10:16)
[2019-03-01] MEDS: Carvedilol 25 MG TAB PO SCH (10:18)
[2019-03-01] MEDS ORDERED: Furosemide 20 MG/2 ML VIAL SLOW IVP SCH (11:15)
--- NOTE | 2019-03-01 11:34 | PRG ---
DATE OF SERVICE: 03/01/2019 SERVICE: Nephrology. SUBJECTIVE: 83-year-old female with bladder cancer status post resection and Roxi pouch creation, hypertension, diabetes, and diastolic heart failure, admitted with worsening edema and poor urine output. Found to have CHF. Nephrology seen the patient for acute kidney injury. The patient reports feeling better. Swelling has improved. OBJECTIVE: VITAL SIGNS: Temperature 98.0, pulse 64, respiratory rate 16, SpO2 of 94% on room air, and blood pressure is 145/72. GENERAL: Elderly female, in no distress. Afebrile. SKIN: Anicteric. Acyanotic. HEENT: Normocephalic, atraumatic. Oral mucosa is moist. CARDIOVASCULAR: Regular rhythm and rate with normal heart sounds 1 and 2. Systolic murmur noted. RESPIRATORY: Fair air entry bilaterally with some bibasilar crackles and some transmitted breath sounds. No rhonchi or use of accessory muscles appreciated. GI: Abdomen is full, soft, nontender, nondistended with normal bowel sounds. Right lower quadrant ostomy noted. EXTREMITIES: Mild to moderate bilateral leg edema noted, right more than left. DIAGNOSTIC DATA: CBC today showed WBC count of 2.9, hemoglobin of 9.4, MCV of 80.0, and platelet count of 183. CMP showed sodium 131, potassium 3.9, chloride 99, CO2 23, BUN 20, creatinine 1.23, glucose 101, calcium 9.2, albumin 3.6, total protein 6.6, globulin 3.0, total bilirubin 0.7, AST 15, ALT 10, and alkaline phosphatase 44. Serum osmolality is 287 and urine osmolality is 204. Urinalysis on February 28 showed moderate blood and trace leukocyte esterase with negative bilirubin, nitrite, ketones and glucose. Microscopy showed 4 to 6 rbc's and 11 to 20 wbc's with 2+ bacteria. Urine electrolytes showed random total protein of 21 mg/dL. Urine creatinine of 41.07. Urine sodium of 25 and urine urea nitrogen of 311. ASSESSMENT: 1. Acute kidney injury: This is due to hemodynamic factors related to poor perfusion from cardiac decompensation. Renal function is improving with diuretics and improvement of volume status. 2. Hyponatremia: Due to appropriate ADH due to intravascular depletion. Sodium is currently up to 131. 3. Metabolic acidosis due to acute kidney injury, improved. 4. Volume overload. Some improvement with diuretic therapy. 5. Mild right hydronephrosis: Thought to be due to reflux into the neobladder. Urology following. No intervention planned. 6. Metabolic acidosis, atrial fibrillation with rapid ventricular response and acute on chronic heart failure and elevated troponin as per Cardiology and primary attending. PLAN: I agree with diuretic therapy. We will give additional 20 mg of IV Lasix. We will monitor electrolytes and renal function. Further treatment as per primary attending. The patient can be discharged from Nephrology point of view with a close followup in 1 week with repeat lab. We will get renal function panel in the morning as well as iron chemistry if the patient is still here in the morning. Job ID: [id number]
[2019-03-01 12:18] VITALS: TEMP 97.5
[2019-03-01 17:36] VITALS: BP 125/62
[2019-03-01] MEDS ORDERED: tiZANidine HCl 4 MG TAB PO SCH (21:00)
--- NOTE | 2019-03-01 23:08 | DIS ---
DATE OF ADMISSION: 02/28/2019 DATE OF DISCHARGE: 03/01/2019 DISCHARGE DIAGNOSES: 1. Abdominal distention, resolved. 2. 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 3. Acute on chronic diastolic congestive heart failure. 4. History of pacemaker placement. 5. Atrial fibrillation with rapid ventricular rate. 6. Acute kidney injury with hyponatremia, improved. 7. DNR/DNI. 8. Positive troponin, possibly demand supply mismatch. PHYSICAL EXAMINATION: VITAL SIGNS: Blood pressure 125/62, temperature 97.5, pulse 86, respirations 16, oxygen saturation 93% on room air. GENERAL: The patient is alert, awake, and oriented, in no distress. CHEST: Normal vesicular breathing. HEART: Sounds normal. ABDOMEN: Mildly distended. Neobladder site not tender. EXTREMITIES: Mild edema of feet, positive bilateral lower extremities. LABORATORY DATA: CBC unremarkable except white blood cell 2.9, hemoglobin 9.4, platelets 183. BMP unremarkable except sodium 131, creatinine 1.23. On admission, creatinine 1.48. Troponin 0.253, 0.198, 0.215. ProBNP 838. UA, white blood cells 11 to 20, rbc's trace. Urine culture negative for 24 hours. Chest x-ray, mild congestion. Abdomen and pelvis CT scan, [id number] distention of the neobladder. There is mild right hydronephrosis, bilateral renal cyst, small right pleural effusion with mild diffuse anasarca. EKG, atrial fibrillation with heart rate of 109 on tele on admission. HISTORY OF PRESENT ILLNESS: The patient with a past medical history of atrial fibrillation; history of bladder cancer, status post neobladder placement 6 years ago; history of diastolic congestive heart failure; presented with worsening shortness of breath for 2 weeks and abdominal distention, abdominal discomfort for 1 days. As per patient, she self catheterizes neobladder, but from last 1 day, she has been passing less urine as compared to normal. Normally, she passes 3 to 4 L, but she passed only 500 L before admission. The patient was also seen by outpatient certified teacher assistant once a day and again treated with diuretics and patient on admission was found to be having also hyponatremia and mild STEPH. The patient was evaluated by Cardiology and Nephrology and Urology. Urology recommended no further workup and recommended to continue same therapy and followup as outpatient with primary urologist. Agronomy Location Manager also evaluated the patient. Patient's sodium is improving, currently 131 and patient also continued her home medications. Heart rate is better. Today, patient feeling much better. Edema is improving. The patient cleared by Cardiology, Nephrology, and Urology, being discharged home and patient advised to follow up with Cardiology and Nephrology in 1 week. Plan discussed with the patient, family member, and primary. I personally discussed the case with primary certified teacher assistant on the phone. Job ID: [id number]
--- NOTE | 2019-03-02 07:38 | CON ---
DATE OF CONSULTATION: 03/01/2019 REASON FOR CONSULTATION: Atrial flutter/atrial fibrillation. HISTORY OF PRESENT ILLNESS: Ms. Goff is an 83-year-old woman with significant history of bladder cancer with prior cystectomy and Roxi pouch formation. She had been having some lower extremity swelling and was seen by her music typographer and her Lasix was increased. She had very little urinary output and was concerned with this output over the past 24 to 48 hours. She has a stoma that she self caths through and went to the emergency room for further evaluation. She had a CT performed that showed some mild hydronephrosis and Urology has been consulted. Since she has been on telemetry, she has been seen to have recurrent atrial arrhythmias and most recently in atrial flutter, somewhat sustained and rapid at approximately 120 beats per minute. She has a dual-chamber pacemaker that was placed in 2013 for sick sinus syndrome. Ms. Goff is currently resting in a chair upright and feeling well. She denies any heart racing, palpitations, chest pain, pressure, syncope, near syncope, stroke, or stroke-like symptoms. She reports that she came to the hospital on the and had missed at least 24 hours of sotalol, correlating with the recurrence of her atrial flutter. She does not have any cardiac concerns or complaints today. Her largest concern is her low urine output and increased swelling. REVIEW OF SYSTEMS: A 12-point review of systems was conducted and is negative except that listed above in HPI. PAST MEDICAL HISTORY: 1. Atrial arrhythmias, status post 3 prior left atrial ablated procedures for atrial fibrillation and flutter, initially in October 2014, redo in April of 2015, redo in August of 2015. Left atrial appendage was ablated without isolation. 2. Sick sinus syndrome, status post dual-chamber pacemaker placed in 2013. 3. Severe biatrial enlargement. 4. Coronary artery disease. 5. Hypertension. 6. Dyslipidemia. 7. Hypothyroidism. 8. Urinary stoma. 9. Bladder cancer. 10. Moderate to severe tricuspid regurgitation. 11. Moderate to severe pulmonary hypertension by echo in November of 2015. HOME MEDICATIONS: 1. Vitamin D3 b.i.d. 2. Tizanidine 4 mg at bedtime. 3. Clonidine 0.1 mg p.r.n. 4. Ambien at bedtime 10 mg. 5. Sotalol 120 mg p.o. b.i.d. 6. Xarelto 20 mg p.o. daily. 7. Lyrica 100 mg at bedtime. 8. Omeprazole daily. 9. Minoxidil 20 mg daily. 10. Claritin daily. 11. Bon[place]arte q.p.m. 12. Furosemide 20 mg daily. 13. Fish oil b.i.d. 14. B12, 1000 mcg IM weekly. 15. [place] Thyroid 150 mg daily. 16. Levsin two tablets daily. 17. Zyrtec 10 mg at bedtime. 18. Carvedilol 25 mg p.o. b.i.d. ALLERGIES: SULFA, DIGOXIN, MORPHINE, DILTIAZEM, AND MULTAQ, AND PINEAPPLE. FAMILY HISTORY: Noncontributory. SOCIAL HISTORY: Denies alcohol or tobacco or illicit drug use. OBJECTIVE: VITAL SIGNS: Temperature 98.0 degrees Fahrenheit, pulse 64, blood pressure 145/72, respirations 16, and oxygen is 94% on room air. PHYSICAL EXAMINATION: GENERAL: The patient is alert and oriented. Speech is clear. Affect is appropriate. She is in no apparent distress, sitting upright during the exam. NECK: Supple with mild jugular venous distention. HEART: Rate is regularly regular with crisp S1 and S2. Tricuspid regurgitation murmur is heard along the left sternal border. LUNGS: Clear to auscultation, but do have some crackles in the bases. ABDOMEN: Distended. Hepatojugular reflux is positive. EXTREMITIES: Warm and dry to touch without clubbing or cyanosis, but 2+ pitting edema is noted bilaterally. NEUROLOGIC: Grossly intact. Nonfocal. Gait is not assessed. She has a left-sided pacemaker inside without reaction. DATA BASE: Laboratory: Hemoglobin 9.4, WBC 2.9, platelet count is 183. Chemistry; sodium 131, creatinine 1.23. ALT and AST are within normal limits. BNP on admission was 838. Telemetry and EKGs were all personally reviewed and currently reflect sinus rhythm with demand pacing, episodes of atrial flutter are seen, somewhat regular but with Wenckebach conduction. IMPRESSION: 1. Recurrent atrial arrhythmias with a history of persistent atrial fibrillation, status post 3 prior left atrial ablations, most recently in August 2015. a. Good suppression with sotalol in the past with recent interruption in therapy for greater than 24 hours, correlating with the time of recurrence with arrhythmias on 02/27. b. Chronic oral anticoagulation on Xarelto, currently on hold. 2. Acute on chronic diastolic heart failure. 3. Urinary bladder stoma. 4. Adequate function of Adapta [employer] pacemaker, dual-chamber, showing good arrhythmia control until 02/27, when atrial arrhythmia recurrences began. Otherwise, solitary event in October was seen. PLAN AND RECOMMENDATIONS: 1. Agree with diuresis and optimizing her fluid status. 2. Resume sotalol and we will continue to monitor both on telemetry and through her pacemaker. She was well suppressed with sotalol in the past until this recent interruption and heart failure exacerbation, so her recurrence is likely multifactorial. If sotalol is inadequate in continuing to suppress her atrial arrhythmias, we could consider redo PVAI or consider alternate antiarrhythmic therapy. We will continue to monitor and we will schedule her a followup appointment in our clinic in the near future. She will need to continue her oral anticoagulation upon discharge and resume in this hospital stay whenever is deemed safe. Her oral anticoagulation is currently on hold, possibly for consideration of some kind of procedure, though this was unclear. Thank you for allowing me to participate in the care of this patient. Dictated by Lissa Styles PA-C for Dr. Victoria. Job ID: [id number]
--- NOTE | 2019-03-02 09:05 | PQF ---
LATESHA BAKER Muhammad MD [id number] [id number] CLINICAL DOCUMENTATION CLARIFICATION FORM: POST DISCHARGE Addendum to original discharge summary date: ____ Late entry note date: __ DATE: 03/08/2019 ATTN: Jemal Hathaway MD Please exercise your independent, professional judgment in responding to the clarification form. Clinical indicators are provided on the bottom of this form for your review Please check appropriate box(s): AMI TYPE: [ ] Acute Coronary Syndrome (ACS) without Acute IL meaning Unstable Angina [ ] NSTEMI (IL type I) [ ] NSTEMI due to Demand Ischemia (AMI Type II) [ ] Demand Ischemia without IL [ ] STEMI (please also specify site and arterysee below) If STEMI, SITE:[ ] Anterior [ ] Apical [ ] Lateral [ ] Inferior [ ] Posterior [ ] Q Wave [ ] Septal [ ] Unable to Determine SPECIFIC ARTERY (Based on site) [ ] Left Main Coronary[ ] Diagonal [ ] Left Anterior Descending[ ] Oblique Marginal [ ] Right Coronary Artery[ ] Unable to Determine [ ] Left Circumflex ONSET OF INFARCTION: [ ] Onset Less than 4 weeks of admission [ ] Onset Greater than 4 weeks of admission [ ] Unable to determine DUE TO (if applicable): [ ] Stent occlusion [ ] In-Stent stenosis [ ] Occlusion of coronary bypass graft [ ] Complication of PCI [ ] Underlying CAD [ ] Other [ ] Other diagnosis [ ] Unable to determine In addition, please specify: Present on Admission (POA): [ ] Yes [ ] No [ ] Unable to determine CLINICAL INDICATORS - SIGNS / SYMPTOMS / LABS - positive troponin, possible demand supply mismatch--DS, 03/01, Mag gamez MD --Interminate troponins-ED record, 02/27 - mildly positive troponin with hyponatremia- H&P, 02/28, Mag gamez MD - EF is visually estimated at 55-60%-ECHO, 1030 - Trace mitral regurgitaion is present-ECHO, 1030 RISKS: -Acute on chroni diastolic heart failure-DS, 03/01, Mag gamez MD --Atrial fibrillation with rapid ventricular rate -H&P, 02/28, Mag gamez MD TREATMENTS: -Furosemide.IV-JUL,03/01 (This form is maintained as a part of the permanent medical record) 2014 [employer]. All Rights Reserved Antelmo Cortez [not provided] [not provided] MTDD
== END 2019-03-01 19:28 | disposition home or self-care (01) | DRG 682 ==
LOC: ERS 20:20 → ERHOLD 23:00 → 2NO 02-28 00:08 → OBSVTOIN 02-28 10:56 → 2NO 02-28 14:09
PROVIDERS: ADMIT Internal Medicine; ATTEND Internal Medicine
DX: N17.9 Acute kidney failure, unspecified (principal); I50.33 Acute on chronic diastolic (congestive) heart failure; E87.1 Hypo-osmolality and hyponatremia; E87.2 Acidosis; N13.30 Unspecified hydronephrosis; I11.0 Hypertensive heart disease with heart failure; Z66 Do not resuscitate; I48.0 Paroxysmal atrial fibrillation; E03.9 Hypothyroidism, unspecified; C67.9 Malignant neoplasm of bladder, unspecified; Z96.652 Presence of left artificial knee joint; Z96.612 Presence of left artificial shoulder joint; Z79.01 Long term (current) use of anticoagulants; Z95.0 Presence of cardiac pacemaker; Z90.49 Acquired absence of other specified parts of digestive tract; Z90.710 Acquired absence of both cervix and uterus; Z87.891 Personal history of nicotine dependence
CPT/HCPCS: 36415; 36416; 71045; 74176; 80053; 80069; 81001; 82553; 82570; 83880; 83930; 83935; 84156; 84300; 84484; 84540; 85025; 87086; 90471; 90662; 93005; 93306; 96374; G0008; J1940; J2270

== ENCOUNTER 2019-03-22 20:37 | Inpatient (IN) | payer MEDICARE, BC ==
[~2019-03-22 20:37] MED LIST changes: +Iopamidol 370 76% 100 ML VIAL ONE; -PROPOFOL 200 MG/20 ML VIAL ONE
[2019-03-22 21:28] LABS: Hemoglobin 9.8 g/dL (12.0-16.0); Mean Corpuscular HGB CONC 32.3 g/dL (32.0-36.0); Mean Corpuscular Hemoglobin 24.7 pg (27.0-31.0); Mean Corpuscular Volume 76.5 fL (78.0-98.0); Mean Platelet Volume 8.1 fL (7.4-10.4); Platelet Count 170 thou/uL (130-400); RBC Distribution Width 14.4 % (11.5-14.5); Red Blood Cell (RBC) Count 3.97 mill/uL (4.20-5.40); White Blood Cell (WBC) Count 3.3 thou/uL (4.8-10.8)
[2019-03-22] MEDS ORDERED: Morphine 4 MG/ML VIAL ONE (21:29)
--- NOTE | 2019-03-22 21:31 | RAD ---
EXAM: Chest one view: HISTORY: Abdominal pain with nausea and vomiting COMPARISON: 02/27/2019 FINDINGS: Left ICD. Status post left shoulder reverse arthroplasty. Heart size: Enlarged with mild vascular congestion. Lungs: Clear of acute process. No evidence for confluent pneumonia, pleural effusion, acute edema, or pneumothorax, or other signifi cant acute process. IMPRESSION: No significant acute intrathoracic disease. Overall stable appearance.
[2019-03-22 21:47] LABS: Eosinophils 5 % (0-10); Lymphocytes 20 % (21-51); MDiff Complete? YES; Monocytes 14 % (0-10); Neutrophil 61 % (42-75); Platelet Morphology Comment Appears Adequate
[2019-03-22 21:48] LABS: ALT (SGPT) 9 U/L (8-55); AST (SGOT) 16 U/L (5-34); Alkaline Phosphatase 45 U/L (40-110); Anion Gap 17 mmol/L (10-20); BUN (Urea Nitrogen) 16 mg/dL (9.8-20.1); Bilirubin, Total 1.2 mg/dL (0.2-1.2); Calc. Creatinine Clearance 0 mL/min (70-130); Calcium 9.3 mg/dL (7.8-10.44); Carbon Dioxide 25 mmol/L (23-31); Chloride 99 mmol/L (98-107); Estimated GFR-MDRD 42; Globulin 3.2 g/dL (2.4-3.5); Glucose 124 mg/dL (83-110); Lipase 10 U/L (8-78); Potassium 3.6 mmol/L (3.5-5.1); Protein, Total 7.2 g/dL (6.0-8.3); Sodium 137 mmol/L (136-145)
[2019-03-22 22:11] LABS: CKMB 1.4 ng/mL (0-6.6)
--- NOTE | 2019-03-22 22:40 | CT ---
EXAM: Abdomen and pelvic CT scan with contrast: HISTORY: Abdominal pain for 3 days COMPARISON: 02/27/2019 FINDINGS: Moderate size hiatal hernia. Right pleural effusion and right lower lobe pleural-based parenchymal changes. Extensive postoperative changes involving the upper abdomen lower abdomen and spine. Liver: Unremarkable. Gallbladder:Unremarkable. Pancreas:Unremarkable Spleen:Unremarkable. Adrenal glands:Unremarkable. Kidneys:No renal calculus or acute obstruction. Stable right renal cyst. Status post cystectomy with a right sided neural bladder and ostomy. Stable minimally enlarged right groin lymph nodes. No evidence for large or small bowel obstruction. Bilateral lower pelvis stable mostly fatty-replaced lymph nodes. No CT evidence for acute appendicitis. Cystectomy. Reproductive system:Unremarkable No abscess, adenopathy, or abnormal fluid collection within the abdomen or pelvis. Fat-containing left inguinal hernia. IMPRESSION: Extensive postoperative changes as well as numerous other findings as above. Appearance is stable fro m prior exam.
[2019-03-23] MEDS ORDERED: hydrALAZINE 20 MG/ML VIAL SLOW IVP PRN (01:33)
[2019-03-23] MEDS ORDERED: Ondansetron PF 4 MG/2 ML Vial IVP PRN ×2 (01:33)
[2019-03-23] MEDS ORDERED: Ondansetron ODT 4 MG TAB PO PRN (01:33)
[2019-03-23] MEDS ORDERED: Ondansetron ODT 4 MG TAB SL PRN (01:33)
[2019-03-23] MEDS ORDERED: Acetaminophen 500 MG TAB PO PRN (01:33)
[2019-03-23 01:38] VITALS: BMI 29.0
--- NOTE | 2019-03-23 03:23 | HP ---
PRIMARY CARE PROVIDER: Mingo Rosenberg DO CHIEF COMPLAINT: Abdominal pain with nausea and vomiting. HISTORY OF PRESENT ILLNESS: This is an 83-year-old female, who was recently admitted to [facility] from February 28, 2019 to March 01, 2019 for abdominal distention, and abdominal pain in the context of chronic neobladder distention and mild right hydronephrosis due to history of bladder cancer, status post resection with neobladder reconstruction. The patient states since her discharge, she has felt overall weak with poor appetite. The patient admitted to increasing abdominal pain with some distention; however, continues her neobladder catheterizations every 4 hours during the daytime. The patient states she has had excellent urine output with her chronic use of Lasix. The patient admitted to nausea and emesis; however, due to poor oral intake, states she was mainly dry heaving over the last 48 hours. The patient saw her primary show girl, Dr. Calvert, who increased her dose of Lasix in the last several days prior to this evaluation and patient admitted to approximately 2.5 L of urine output. The patient denied any specific fever, chills, exposure history, or family members with similar symptoms. The patient denied any change to her bowel habits. The patient reports her last bowel movement was in the household personal assistant hours of 03/22/2019. In the emergency room, the patient underwent general evaluation including CT of the abdomen and pelvis showing chronic changes consistent with prior surgical history and neobladder findings, but no acute process identified. The patient received Tylenol 650 mg in addition to morphine sulfate and was referred to the Hospitalist Service for evaluation. PAST MEDICAL HISTORY: 1. 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 2. Chronic diastolic congestive heart failure. 3. Chronic abdominal distention. 4. Chronic atrial fibrillation with chronic anticoagulation with Xarelto. 5. Chronic kidney disease, stage 3. 6. History of bladder cancer, status post neobladder creation. PAST SURGICAL HISTORY: 1. Status post appendectomy. 2. Status post back surgery. 3. Status post pacemaker placement. 4. Status post neobladder formation. 5. Status post hysterectomy. 6. Status post left total knee arthroplasty. 7. Status post thyroidectomy. 8. Status post left shoulder repair. CURRENT MEDICATIONS: 1. Coreg 25 mg p.o. b.i.d. 2. Zyrtec 10 mg p.o. at bedtime. 3. Vitamin D3 2000 units p.o. b.i.d. 4. Clonidine 0.1 mg p.o. at bedtime p.r.n. 5. Vitamin B12 1000 mcg IM q.7 days. 6. Cardale-3 fatty acids 1000 mg p.o. b.i.d. 7. Levsin 0.125 mg 2 tablets p.o. daily p.r.n. 8. Minoxidil 20 mg p.o. daily. 9. Omeprazole 40 mg p.o. daily. 10. Lyrica 100 mg p.o. at bedtime. 11. Xarelto 20 mg p.o. daily. 12. Sotalol 120 mg p.o. b.i.d. 13. [place] Thyroid 150 mg p.o. daily. 14. Tizanidine 4 mg p.o. at bedtime. 15. Ambien 10 mg p.o. at bedtime p.r.n. 16. Lasix 40 mg p.o. daily. ALLERGIES: PINEAPPLE. FAMILY HISTORY: Positive for hypertension. SOCIAL HISTORY: Resides in the [facility] ([place], [place]). Lives independently, but her daughter assists as needed. Former tobacco use, quitting more than 10 years prior to this evaluation. Occasional alcohol use. No illicit drug use. REVIEW OF SYSTEMS: CONSTITUTIONAL: Negative for weight loss or gain, ability to conduct usual activities. SKIN: Negative for rash, itching. EYES: Negative for double vision, pain. ENT/MOUTH: Negative for nose bleeding, neck stiffness, pain, tenderness. CARDIOVASCULAR: Negative for palpitations, dyspnea on exertion, orthopnea. RESPIRATORY: Negative for shortness of breath, wheezing, cough, hemoptysis, fever or night sweats. GASTROINTESTINAL: Negative for poor appetite, abdominal pain, heartburn, nausea, vomiting, constipation, or diarrhea. GENITOURINARY: Negative for urgency, frequency, dysuria, nocturia. MUSCULOSKELETAL: Negative for pain, swelling. NEUROLOGIC/PSYCHIATRIC: Negative for anxiety, depression. ALLERGY/IMMUNOLOGIC: Negative for skin rash, bleeding tendency. Otherwise negative except as stated per HPI. PHYSICAL EXAMINATION: VITAL SIGNS: On admission, blood pressure 160/93, pulse 115, respiratory rate 20, temperature 98.5 degrees Fahrenheit, O2 saturation 90% on room air. GENERAL APPEARANCE: This is an 83-year-old female, alert and oriented x3, pleasant, responsive, in no acute distress. HEENT: Pupils are equal, round, reactive to light and accommodation. Extraocular muscles are intact. No scleral icterus. No conjunctival injection. Nares patent. OP is clear. Teeth in fair repair. NECK: Supple. No cervical adenopathy. No thyromegaly. No carotid bruits. No JVD appreciated. Cervical spine with full active and passive range of motion. No meningeal signs noted. CHEST: Lungs are clear to auscultation bilaterally. CARDIOVASCULAR EXAM: S1-S2 with irregular rate and rhythm. 2/6 systolic ejection murmur in the right upper sternal border. ABDOMEN: Rounded, soft, nontender. Mild distention. Urostomy in the right lower quadrant. EXTREMITIES: Warm and dry with fair turgor. No clubbing, cyanosis, or asymmetric edema appreciated. Pulses palpable distally at the dorsalis pedis, posterior tibial, and popliteal arteries bilaterally. Capillary refill less than 2 seconds. NEUROLOGIC: Cranial nerves 2 through 12 are grossly intact. No focal or lateralizing signs appreciated. PERTINENT LABORATORY AND X-RAY FINDINGS: Sodium 137, potassium 3.6, chloride 99, CO2 of 25, BUN 16, creatinine 1.23, estimated GFR 42, glucose 124, calcium 9.3, total bilirubin 1.2. LFTs within normal limits. Troponin I 0.037. BNP 575, previously noted 772 on 03/10/2019. Lipase 10. CBC showed a white blood cell count of 3.3, hemoglobin 10, hematocrit 30, MCV 77, platelet count 170 with 61% neutrophils. Influenza A and B antigen dated 03/22/2019, negative. CT of the abdomen and pelvis dated 03/22/2019, showed multiple chronic changes without an acute process identified. Portable chest x-ray dated 03/22/2019, showed no acute cardiopulmonary process. EKG dated 03/22/2019, by my interpretation shows atrial fibrillation with heart rates in the 80s. Normal R-wave progression noted in the precordial leads. Right bundle branch block pattern noted. Normal axis. ASSESSMENT AND PLAN: 1. Abdominal pain. Nonspecific etiology. Continue general supportive management. Clear liquids as tolerated. Antiemetics as needed. No acute process identified on CT imaging of the abdomen and pelvis. 2. Nausea and vomiting. Etiology unclear. Improved with antiemetics and general supportive management. Continue to monitor clinical response. 3. Chronic diastolic congestive heart failure. Appears compensated currently. Continue Lasix 40 mg daily. 4. Chronic atrial fibrillation. Rate controlled currently. Continue sotalol 120 mg b.i.d. and Xarelto 20 mg daily. 5. Chronic kidney disease, stage 3. Avoid nephrotoxic agents and limit contrast exposure. Repeat creatinine in the a.m. 6. Deconditioning. PT evaluation for functional assessment in the a.m. General fall risk precautions. 7. Prophylaxis. SCDs while in bed. Pepcid 20 mg p.o. b.i.d. CODE STATUS: Do not attempt resuscitation confirmed with the patient. Job ID: [id number]
[2019-03-23 04:56] LABS: Band 2 % (5-11); Eosinophils 8 % (0-10); Hemoglobin 9.9 g/dL (12.0-16.0); Lymphocytes 20 % (21-51); MDiff Complete? YES; Mean Corpuscular HGB CONC 32.6 g/dL (32.0-36.0); Mean Corpuscular Hemoglobin 25.1 pg (27.0-31.0); Mean Corpuscular Volume 76.9 fL (78.0-98.0); Mean Platelet Volume 8.5 fL (7.4-10.4); Monocytes 9 % (0-10); Neutrophil 61 % (42-75); Platelet Count 180 thou/uL (130-400); Platelet Morphology Comment Appears Adequate; RBC Distribution Width 14.5 % (11.5-14.5); Red Blood Cell (RBC) Count 3.96 mill/uL (4.20-5.40); White Blood Cell (WBC) Count 3.7 thou/uL (4.8-10.8)
[2019-03-23 05:06] LABS: Anion Gap 14 mmol/L (10-20); BUN (Urea Nitrogen) 15 mg/dL (9.8-20.1); Calc. Creatinine Clearance 41 mL/min (70-130); Calcium 9.6 mg/dL (7.8-10.44); Carbon Dioxide 27 mmol/L (23-31); Chloride 100 mmol/L (98-107); Estimated GFR-MDRD 40; Glucose 104 mg/dL (83-110); Sodium 137 mmol/L (136-145)
[2019-03-23] MEDS: Sotalol HCl 80 MG TAB PO SCH ×2 (08:17→20:33)
[2019-03-23] MEDS ORDERED: Rivaroxaban 10 MG TAB PO SCH ×2 (09:00→17:00)
[2019-03-23] MEDS ORDERED: Furosemide 40 MG TAB PO SCH ×2 (09:00→17:15)
[2019-03-23] MEDS ORDERED: Famotidine 20 MG TAB PO SCH (09:00)
[2019-03-23] MEDS: Thyroid 60 MG TAB PO SCH (09:11)
[2019-03-23 10:36] LABS: Hemoglobin 10.1 g/dL (12.0-16.0); Platelet Count 188 thou/uL (130-400)
[2019-03-23] MEDS: HYDROcodone/Acetaminophen 5/325 mg Tablet PO PRN ×2 (11:17→17:09)
[2019-03-23] MEDS ORDERED: Dicyclomine 10 MG CAP PO PRN (13:17)
[2019-03-23] MEDS ORDERED: NIFEdipine XL 30 MG TAB PO SCH (13:30)
[2019-03-23] MEDS ORDERED: diphenhydrAMINE 25 MG CAP PO PRN (15:05)
[2019-03-23] MEDS ORDERED: Zolpidem Tartrate 5 MG TAB PO SCH (21:00)
[2019-03-23] MEDS ORDERED: Pregabalin 50 MG CAP PO SCH (21:00)
--- NOTE | 2019-03-23 23:47 | CON ---
DATE OF CONSULTATION: 03/23/2019 REQUESTING PHYSICIAN: Dr. Frederick. REASON FOR CONSULTATION: Abdominal pain. HISTORY OF PRESENT ILLNESS: Liza Goff is an 83-year-old woman with a history significant for multiple abdominal surgeries. She had hysterectomy and appendectomy. In 2011, she was diagnosed with bladder cancer and underwent cystectomy with neobladder formation with an [place] pouch and urostomy (this requires segmental small bowel resection). Prior to this, she has had an EGD and colonoscopy in [address] Fabian, demonstrating a large hiatal hernia and a large rectal tubulovillous adenoma and transanal resection. She has not had any colonoscopy or EGDs since that time. She is on omeprazole, which controls chronic heartburn symptoms very well. She has a prior history of presentations with partial small-bowel obstructions. She reports that over the past 4 days, she has had new escalating generalized abdominal pain and distention. The pain is generalized throughout the abdomen and can get severe in episodes lasting for 5 to 20 minutes at a time, coming every hour or two. During this time, she has significant nausea and has sometimes had dry heaves, so her oral intake has been minimal through this time. She reports no diarrhea or constipation. Has been having okay bowel movements through this, last one was yesterday. There is no melena or hematochezia noted with this. She has received Ayer here, which does control the pain. She had labs demonstrating normal lipase and LFTs, mild anemia, and a CT scan showing extensive postoperative changes in the abdomen, but no acute process. REVIEW OF SYSTEMS: Full review of systems including constitutional, head, eyes, ears, nose, throat, GI, , cardiovascular, respiratory, musculoskeletal, neurologic systems is negative except as noted in the HPI. PAST MEDICAL HISTORY: Hypertension, hyperlipidemia, diabetes, coronary artery disease, atrial fibrillation, pacemaker placement, diastolic CHF, appendectomy, hysterectomy, bladder cancer status post cystectomy with [place] pouch and neobladder formation with urostomy in 2011, left total knee replacement. ALLERGIES: P[place]APP[place]. OUTPATIENT MEDICATIONS: 1. Xarelto 20 mg daily. 2. Lyrica. 3. Omeprazole 40 mg daily. 4. Coreg. 5. Zyrtec. 6. Vitamin D3. 7. Clonidine. 8. Vitamin B12. 9. Potwin-3 fatty acids. 10. Levsin 0.125 mg two tablets p.r.n. 11. Minoxidil. 12. Sotalol. 13. [place] Thyroid. 14. Tizanidine. 15. Ambien. 16. Lasix. FAMILY HISTORY: Noncontributory. SOCIAL HISTORY: She is a former smoker. Alcohol use is occasional. She lives independently, but her daughter assists as needed. PHYSICAL EXAMINATION: VITAL SIGNS: Temperature 97.9, blood pressure 169/77, pulse 97, and 94% oxygen saturation on room air. GENERAL: An 83-year-old woman, lying in bed comfortably, in no acute distress. SKIN: No jaundice. No rashes were palpable. EYES: No scleral icterus. Extraocular movements intact. ENT: Mucous membranes moist. No oral lesions. LYMPH: No submandibular, supraclavicular lymphadenopathy. THYROID: Nontender to palpation. HEART: Regular rate and rhythm. LUNGS: Clear to auscultation bilaterally. ABDOMEN: Mild distention, tympanitic to percussion throughout. Bowel sounds are present, high pitched throughout the abdomen, diffuse tenderness to palpation. No guarding or rebound tenderness. EXTREMITIES: No peripheral edema. VESSELS: Radial pulses 2+ bilaterally. NEUROLOGICAL: Cranial nerves 2 through 12 intact bilaterally. No focal deficits. LABORATORY STUDIES: Hemoglobin 10.1, MCV 76.9, WBC 3.7, platelets 188. Sodium 137, potassium 4.0, BUN 15, creatinine 1.28, total bilirubin is 1.2, alkaline phosphatase 45, AST 16, ALT 9, albumin 4.0, lipase 10. BNP 575. Troponin 0.037. Flu swab is negative. IMAGING STUDIES: CT of the abdomen and pelvis demonstrates extensive postoperative changes in the upper abdomen. Moderate hiatal hernia. Normal appearing liver, gallbladder, spleen, pancreas and kidneys. No lymphadenopathy. No abscess. Cystectomy with [place] pouch and right-sided urostomy are evident. ASSESSMENT AND PLAN: 1. Diffuse abdominal pain. 2. Nausea. 3. History of multiple abdominal surgeries. 4. Hiatal hernia. The patient's presentation and the description of symptoms seem most compatible with partial small-bowel obstruction. The abdominal pain is generalized and colicky, which is what would be expected with this, and she is certainly at risk for ongoing partial obstructive symptoms with her extensive history of abdominal surgeries including small bowel surgeries. Indeed, she has been hospitalized for partial small-bowel obstruction in the past. The CT scan does not really comment on significant bowel dilation at this time, however. For now, I would continue with supportive care, antiemetics, and analgesics as needed. I would keep her on a liquid diet only as tolerated. Monitor stool output. I am not sure diagnostic upper endoscopy would give us any better information, but would potentially serve to rule out concomitant peptic ulcer disease, Dani erosion associated with a hiatal hernia, etc., so we will hold her Xarelto now. If symptoms are not improved tomorrow, we could consider proceeding with diagnostic EGD the following day. The patient does not want to consider any colonoscopy, and I do not think she could tolerate a bowel prep at this time in any case. Job ID: [id number]
--- NOTE | 2019-03-24 06:22 | PDOC.HOSPP ---
- Subjective Encounter Date: 03/23/19 Subjective: Patient has had abd pain and nausea for several days. She has had some vomiting. Reports the pain to be mostly in the upper abd and moves from side to side, but is generally diffuse. She has not had significant change in her bowels. No fever or chills. She has been following with Dr. Calvert and Dr. Rogers to address her overall volume status and edema. - Objective Vital Signs & Weight: Vital Signs (12 hours) Temp Pulse Resp BP Pulse Ox 03/24/19 03:51 98.7 F 88 17 143/70 H 95 03/23/19 23:53 98.1 F 92 16 124/58 L 96 03/23/19 20:33 97 03/23/19 20:00 97.8 F 98 14 158/78 H 96 Weight Admit Weight 174 lb 6.4 oz Weight 174 lb 6.4 oz I&O: 03/22/19 03/23/19 03/24/19 06:59 06:59 06:59 Intake Total 720 Output Total 2275 Balance -1555 Result Diagrams: 03/23/19 10:21 03/23/19 10:21 Hospitalist ROS - Medication Medications: Active Medications Generic Name Dose Route Start Last Admin Trade Name Freq PRN Reason Stop Dose Admin Acetaminophen 1,000 mg 03/23/19 01:33 03/23/19 04:15 Tylenol PO 1,000 mg Q6H PRN Administration Mild Pain (1-3) Hydrocodone Bitart/Acetaminophen 1 tab 03/23/19 09:45 03/23/19 17:09 [place] 5/325 PO 1 tab Q6H PRN Administration Pain Dicyclomine HCl 10 mg 03/23/19 13:17 03/23/19 14:59 Bentyl PO 10 mg QID PRN Administration GI Cramping Ondansetron HCl 4 mg 03/23/19 01:33 03/23/19 08:18 Zofran IVP 4 mg Q6H PRN Administration Nausea/Vomiting Pregabalin 100 mg 03/23/19 21:00 03/23/19 20:34 Lyrica PO 100 mg HS DANIELA Administration Sodium Chloride 10 ml 03/23/19 21:00 03/23/19 20:41 Flush - Normal Saline IVF 10 ml Q12HR DANIELA Administration Sotalol HCl 120 mg 03/23/19 09:00 03/23/19 20:33 Betapace PO 120 mg BID DANIELA Administration Thyroid 150 mg 03/23/19 09:00 03/23/19 09:11 [place] Thyroid PO 150 mg DAILY DANIELA Administration Zolpidem Tartrate 10 mg 03/23/19 21:00 03/23/19 20:34 Ambien PO 10 mg HS DANIELA Administration - Exam General Appearance: NAD, awake alert Heart: RRR, no gallops, no rubs, normal peripheral pulses, II/IV (LLSB and apex) Respiratory: CTAB, no wheezes, no rales, no ronchi, normal chest expansion, no tachypnea, normal percussion Gastrointestinal: soft, no palpable masses, no hepatomegaly, no splenomegaly, no guarding, tender to palpation (Mild), distended (mildly) Extremities: no cyanosis, no clubbing, 1+ LE edema Skin: normal turgor Neurological: cranial nerve grossly intact, no focal deficits Musculoskeletal: normal tone, normal strength, no muscle wasting Psychiatric: normal affect, normal behavior, A&O x 3 Hosp A/P (1) Abdominal pain Code(s): R10.9 - UNSPECIFIED ABDOMINAL PAIN Status: Acute (2) CAD (coronary artery disease) Code(s): I25.10 - ATHSCL HEART DISEASE OF [place] CORONARY ARTERY W/O ANG PCTRS Status: Acute (3) HTN (hypertension) Code(s): I10 - ESSENTIAL (PRIMARY) HYPERTENSION Status: Acute (4) Hypothyroidism Code(s): E03.9 - HYPOTHYROIDISM, UNSPECIFIED Status: Acute (5) History of bladder cancer Code(s): Z85.51 - PERSONAL HISTORY OF MALIGNANT NEOPLASM OF BLADDER Status: Acute (6) Atrial fibrillation Code(s): I48.91 - UNSPECIFIED ATRIAL FIBRILLATION Status: Acute (7) CKD (chronic kidney disease), stage III Code(s): N18.3 - CHRONIC KIDNEY DISEASE, STAGE 3 (MODERATE) Status: Acute (8) Nausea & vomiting Code(s): R11.2 - NAUSEA WITH VOMITING, UNSPECIFIED Status: Acute - Plan Etiology of the abd pain is unclear given the CT with no acute findings and the lack of leukocytosis or fever. She is at risk for partial SBO with her history of multiple abd surgeries and likelihood of adhesions. She does not have CT evidence for such, but her symptoms are consistent. With the vomiting, she have self-decompressed and minimized findings on the CT. Discussed the case with Dr. Rogers. He has recently changed her BP meds from minoxidil to nifedipine to address the patient's edema. He was not aware of any other issues that might be helpful in explaining her current symptoms. Discussed the case with Dr. Calvert. She will see the patient, but not formally consulting. She has general concerns about the patient's potential for volume overload, but does not have specific insight to the source of her symptoms. Will resume the nifedipine. Because the pain seems to be more upper abd, will consult GI. I will appreciate GI's opinion and consideration for upper endoscopy.
[2019-03-24] MEDS: Furosemide 40 MG TAB PO SCH ×2 (06:29→14:18)
[2019-03-24] MEDS ORDERED: Iron, Sodium Ferric Gluconate 250 MG in Sodium Chloride 0.9% 100 ML IVPB SCH ×2 (09:00→14:00)
[2019-03-24] MEDS ORDERED: Famotidine 20 MG TAB PO SCH (09:00)
[2019-03-24] MEDS ORDERED: NIFEdipine XL 30 MG TAB PO SCH (09:00)
[2019-03-24] MEDS: Sotalol HCl 80 MG TAB PO SCH (09:14)
[2019-03-24] MEDS: Thyroid 60 MG TAB PO SCH (09:16)
[2019-03-24 10:50] LABS: Albumin 4.3 g/dL (3.4-4.8); Anion Gap 19 mmol/L (10-20); BUN (Urea Nitrogen) 16 mg/dL (9.8-20.1); BUN/Creatinine Ratio 12.21; Calc. Creatinine Clearance 40 mL/min (70-130); Calcium 9.9 mg/dL (7.8-10.44); Carbon Dioxide 24 mmol/L (23-31); Chloride 99 mmol/L (98-107); Estimated GFR-MDRD 39; Glucose 169 mg/dL (83-110); Phosphorus 2.9 mg/dL (2.3-4.7); Potassium 3.9 mmol/L (3.5-5.1); Sodium 138 mmol/L (136-145)
[2019-03-24 11:38] VITALS: TEMP 97.7
[2019-03-24 12:06] LABS: Actual Bicarbonate (HCO3a) 27.1 mEq/L (22-28); Base Excess (BEa) 4.1 mEq/L (-2.0 to +3.0); Calcium, Ionized 1.15 mmol/L (1.12-1.30); Carboxyhemoglobin (COHb) 1.2 gm% (0.0-3.0); Hemoglobin (Hb) 11.8 g/dL (12.0-16.0); O2 Tension (PaO2) 76.3 mmHg (> 60.0); Potassium - ABG Lab 3.66 mmol/L (3.70-5.30); pH, Arterial 7.51 (7.35-7.45)
[2019-03-24 12:08] LABS: Puncture Site RBA
--- NOTE | 2019-03-24 12:23 | PRG ---
DATE OF SERVICE: 03/24/2019 SUBJECTIVE: Ms. Goff is doing a lot better this morning. She says she had a good night's sleep. She has not had any significant abdominal pain since yesterday evening. No nausea. She has been tolerating her liquid diet. She got some dicyclomine last night and feels that it really helped. OBJECTIVE: VITAL SIGNS: Temperature 97.7, pulse 94, blood pressure 136/68, and 96% oxygen saturation on room air. GENERAL: No acute distress. HEART: Regular rate and rhythm. LUNGS: Clear to auscultation bilaterally. ABDOMEN: Bowel sounds are active. Soft and nontender to palpation this morning. EXTREMITIES: No peripheral edema. LABORATORY STUDIES: Sodium 138, potassium 3.9, BUN 16, creatinine 1.31. Hemoglobin 10.1, hematocrit 31.9, and platelets 188. ASSESSMENT AND PLAN: 1. Generalized abdominal pain, resolved this morning. 2. Nausea, also resolved this morning. 3. History of multiple abdominal surgeries, likely significant intraabdominal adhesive disease causing intermittent partial small-bowel obstructions. I am pleased with her clinical improvement overnight. I think the dicyclomine given 10 mg q.i.d. p.r.n. is a good idea, and could be continued. I would advise advancing her diet to a low-residue diet, and I discussed the concept of low residue diet with the patient going forward. Given her clinical improvement, we will not plan on any upper endoscopy. She is otherwise okay for discharge home from a GI perspective. GI will sign off, but please call back anytime with questions or concerns. Job ID: [id number]
[2019-03-24 15:20] VITALS: BP 155/74
--- NOTE | 2019-03-26 00:02 | DIS ---
DATE OF ADMISSION: 03/23/2019 DATE OF DISCHARGE: 03/24/2019 DISCHARGE DIAGNOSES: 1. Abdominal pain. 2. Nausea and vomiting. 3. Partial small-bowel obstruction. 4. History of bladder cancer with neobladder. 5. Chronic diastolic congestive heart failure. 6. Hiatal hernia. 7. Coronary artery disease. 8. Chronic kidney disease, stage 3. 9. Hypertension. 10. Hypothyroidism. 11. Atrial fibrillation. 12. Mild deconditioning. CONSULTATIONS: Gastroenterology. IMAGING STUDIES: CT abdomen and pelvis at the time of admission revealing extensive postoperative changes, as well as numerous other findings including right pleural effusion in the right lower lobe, pleural-based parenchymal changes which appear to be chronic, status post cystectomy with right-sided neobladder and ostomy. Also, chest x-ray revealing no significant intrathoracic disease. HISTORY OF PRESENT ILLNESS: This patient is 83-year-old female with a history of a bladder cancer and going extensive abdominal surgery for cystectomy as well as neobladder creation with stoma. The patient presented to the hospital via the emergency department with a complaint of abdominal pain, nausea, and vomiting. She underwent the initial CT scan as above without any acute findings. She was admitted to the hospital for supportive care with fluids, p.r.n. antiemetics. She had generally stable vital signs and her labs were generally unrevealing with white counts being actually slightly low and mild anemia which was chronic in nature, likely related to her chronic kidney disease. Her case was discussed with her filter changing technician and her customs house broker. However, her symptoms were not related to those two organ systems. She was seen in consultation by Gastroenterology, specifically who also felt the patient's symptoms were most consistent with partial bowel obstruction given her extensive surgical history. The patient was maintained on conservative therapy for an additional day with the plan of potentially pursuing endoscopy if she did not improve. However, she did substantially improve. Her symptoms completely resolved and she felt as though she was back to normal. She did have some peripheral readings of hypoxia, which were somewhat variable ultimately in order to clarify the situation. She did have an ABG performed, which revealed a pH of 7.51, pCO2 of 35, PO2 was 76.3, and it was felt that the peripheral readings had been inaccurate and she had no evidence of persistent or significant hypoxia. With her symptoms resolved, she was felt to be stable for discharge to home. PHYSICAL EXAMINATION: VITAL SIGNS: Her exam at that time was temperature 97.7, pulse 93, respirations 16, O2 saturations were as mentioned on the ABG. BP was 155/74. GENERAL APPEARANCE: Age-appropriate female. She was in no distress. Fully awake and alert. HEART: Regular rate and rhythm without murmurs, gallops, or rubs. LUNGS: Clear bilaterally. ABDOMEN: Soft, nontender. Her stoma site appeared healthy. Bowel sounds were normal. EXTREMITIES: No edema. DISPOSITION: The patient is discharged to home. ACTIVITY: As tolerated. She will stay on a low-sodium heart healthy diet. She will be on Lasix 40 mg b.i.d. She will continue with her other home medications unchanged. FOLLOWUP: She is to follow up with Dr. Juni Calvert on 04/04/2019. She is to follow up with Dr. Mingo Rosenberg in 7 days and she can follow up with Dr. Rogers as an outpatient as well. Dr. Rogers ordered IV infusions for the patient during this hospitalization. TIME SPENT: Total time in discharge activities was 39 minutes. Job ID: [id number]
== END 2019-03-24 17:15 | disposition home or self-care (01) | DRG 389 ==
LOC: ERS 20:37 → 2NO 03-23 01:30
PROVIDERS: ADMIT Family Medicine; ATTEND Family Medicine
DX: K56.51 Intestinal adhesions [bands], with partial obstruction (principal); I50.32 Chronic diastolic (congestive) heart failure; I48.20 Chronic atrial fibrillation, unspecified; I13.0 Hypertensive heart and chronic kidney disease with heart failure and stage 1 through stage 4 chronic kidney disease, or unspecified chronic kidney disease; N13.30 Unspecified hydronephrosis; D63.8 Anemia in other chronic diseases classified elsewhere; K44.9 Diaphragmatic hernia without obstruction or gangrene; Z85.51 Personal history of malignant neoplasm of bladder; N18.3 Chronic kidney disease, stage 3 (moderate); Z95.0 Presence of cardiac pacemaker; Z90.710 Acquired absence of both cervix and uterus; Z96.652 Presence of left artificial knee joint; Z91.018 Allergy to other foods; R53.81 Other malaise; I25.10 Atherosclerotic heart disease of native coronary artery without angina pectoris; Z90.49 Acquired absence of other specified parts of digestive tract; Z79.899 Other long term (current) drug therapy; Z87.891 Personal history of nicotine dependence
CPT/HCPCS: 36415; 71045; 74177; 80048; 80053; 80069; 81001; 82553; 82728; 82805; 83540; 83550; 83690; 83880; 84484; 85007; 85025; 85027; 87086; 87804; 93005; J2270; J2405; J2916; J3490; Q9967

== ENCOUNTER → 2019-05-26 | Day surgery (SDC) | payer MEDICARE, BC ==
[2019-05-25 11:42] VITALS: BMI 25.0
[~2019-05-26] MED LIST changes: -Iopamidol 370 76% 100 ML VIAL ONE; +PROPOFOL 20 ML ONE; +hydrALAZINE 20 MG/ML VIAL ONE
[2019-05-26 10:11] LABS: #Eosinphils 0.2 thou/uL (0.0-0.7); #Monocytes 0.5 thou/uL (0.11-0.59); #Neutrophils 1.7 thou/uL (1.40-6.50); %Basophils 1.4 % (0.0-1.0); %Eosinophils 5.3 % (0.0-10.0); %Lymphocytes 28.8 % (21.0-51.0); %Monocytes 14.7 % (0.0-10.0); %Neutrophils 49.7 % (42.0-75.0); Mean Corpuscular HGB CONC 32.5 g/dL (32.0-36.0); Mean Corpuscular Hemoglobin 26.7 pg (27.0-31.0); Mean Corpuscular Volume 81.9 fL (78.0-98.0); Mean Platelet Volume 8.4 fL (7.4-10.4); Platelet Count 208 thou/uL (130-400); RBC Distribution Width 19.6 % (11.5-14.5); Red Blood Cell (RBC) Count 4.87 mill/uL (4.20-5.40); White Blood Cell (WBC) Count 3.4 thou/uL (4.8-10.8)
[2019-05-26 10:18] LABS: INR-International Normal Ratio 2.1; Prothrombin Time 23.4 SEC (12.0-14.7)
[2019-05-26 10:19] LABS: PTT 53.6 SEC (22.9-36.1)
[2019-05-26 10:28] LABS: Anion Gap 11 mmol/L (10-20); BUN (Urea Nitrogen) 14 mg/dL (9.8-20.1); Calc. Creatinine Clearance 54 mL/min (70-130); Calcium 10.1 mg/dL (7.8-10.44); Carbon Dioxide 23 mmol/L (23-31); Chloride 109 mmol/L (98-107); Estimated GFR-MDRD 65; Glucose 122 mg/dL (83-110); Potassium 4.2 mmol/L (3.5-5.1); Sodium 139 mmol/L (136-145)
--- NOTE | 2019-05-26 16:28 | OP ---
DATE OF PROCEDURE: 05/26/2019 PROCEDURE PERFORMED: Electric cardioversion report. REASON FOR PROCEDURE: Ms. Goff is an 83-year-old lady with history of recurrent atrial arrhythmias, status post repeated pulmonary venous isolation procedure, most recently in August 2015. She maintained sinus rhythm on sotalol in the past and has a dual-chamber pacemaker in place, likely left atrial tachycardia persisting. She is here for a planned cardioversion. She is still adequately anticoagulated on Xarelto. DESCRIPTION OF PROCEDURE: The patient received propofol by Anesthesia specialist. After adequate level of sedation achieved, a synchronized 70-joule shock promptly converted the patient back to sinus rhythm. Pacemaker was interrogated pre and post. The patient tolerated the procedure well. No complications noted. PLAN: Continue sotalol and anticoagulation. Routine followup in the office. Job ID: [id number]
--- NOTE | 2019-05-29 18:55 | EKG ---
Test Reason : PREOP Blood Pressure : / mmHG Vent. Rate : 094 BPM Atrial Rate : 094 BPM P-R Int : 136 ms QRS Dur : 130 ms QT Int : 404 ms P-R-T Axes : -12 087 -38 degrees QTc Int : 505 ms Normal sinus rhythm Right bundle branch block T wave abnormality, consider inferior ischemia Abnormal ECG When compared with ECG of 22-MAR-2019 21:20, (Unconfirmed) Previous ECG has undetermined rhythm, needs review Confirmed by ANSELMO DE LA ROSA, SCarmela ([id number]) on 05/29/2019 6:55:13 PM Referred By: CHERRI Confirmed By:DR. You BRIONES MD
== END ==
LOC: CCL 09:04
PROVIDERS: ATTEND Internal Medicine Cardiovascular Disease
PROC: 5A2204Z Restoration of Cardiac Rhythm, Single (ICD-10-PCS; principal; 2019-05-26)
DX: I48.91 Unspecified atrial fibrillation (principal); I48.92 Unspecified atrial flutter; I25.10 Atherosclerotic heart disease of native coronary artery without angina pectoris; I10 Essential (primary) hypertension; E03.9 Hypothyroidism, unspecified; E78.5 Hyperlipidemia, unspecified; G47.33 Obstructive sleep apnea (adult) (pediatric); K21.9 Gastro-esophageal reflux disease without esophagitis; I25.2 Old myocardial infarction; Z79.01 Long term (current) use of anticoagulants; Z79.899 Other long term (current) drug therapy; Z88.2 Allergy status to sulfonamides; Z88.5 Allergy status to narcotic agent; Z88.8 Allergy status to other drugs, medicaments and biological substances; Z91.018 Allergy to other foods; Z87.891 Personal history of nicotine dependence
CPT/HCPCS: 36415; 80048; 85025; 85610; 85730; 92960; 93005; 93010; J0360; J2704

== ENCOUNTER 2020-03-04 07:58 | Inpatient (IN) | payer MEDICARE, BC ==
[2020-03-04] MEDS ORDERED: Ondansetron PF 4 MG/2 ML Vial ONE (08:06)
[2020-03-04 08:22] LABS: #Eosinphils 0.1 thou/uL (0.0-0.7); #Lymphocytes 0.7 thou/uL (1.20-3.40); #Monocytes 0.4 thou/uL (0.11-0.59); #Neutrophils 3.5 thou/uL (1.40-6.50); %Eosinophils 1.7 % (0.0-10.0); %Lymphocytes 14.6 % (21.0-51.0); %Monocytes 9.1 % (0.0-10.0); %Neutrophils 73.6 % (42.0-75.0); Hemoglobin 14.9 g/dL (12.0-16.0); Mean Corpuscular Hemoglobin 29.8 pg (27.0-31.0); Mean Corpuscular Volume 87.6 fL (78.0-98.0); Mean Platelet Volume 8.1 fL (7.4-10.4); Platelet Count 179 thou/uL (130-400); RBC Distribution Width 12.9 % (11.5-14.5); Red Blood Cell (RBC) Count 4.99 mill/uL (4.20-5.40); White Blood Cell (WBC) Count 4.8 thou/uL (4.8-10.8)
--- NOTE | 2020-03-04 08:27 | CT ---
CT BRAIN NONCONTRAST: DATE: 03/04/2020 HISTORY: 84-year-old female with acute right facial droop, right-sided weakness, and dizziness. At 8:24 AM, Dr. Chahal gave verbal report to Dr. Bynum of the ER, 03/04/2020 FINDINGS: There is no evidence of acute intra-axial or extra-axial hemorrhage. There is no midline shift or any other mass effect. There is no extra-axial fluid collection. There is no evidence of obstructive hydrocephalus. Calvarium is intact. There is diffuse brain parenchymal volume loss. There are low att enuation areas in the white matter. These are nonspecific, but in a patient of this age, they are probably chronic ischemic white matter changes due to microvascular atherosclerosis. IMPRESSION: 1) No acute intracranial findings. 2) involutional changes and chronic ischemic white matter changes.
[2020-03-04 08:31] LABS: INR-International Normal Ratio 2.4; PTT 53.3 sec (22.9-36.1); Prothrombin Time 26.6 sec (12.0-14.7)
[2020-03-04 08:46] LABS: ALT (SGPT) 23 U/L (8-55); AST (SGOT) 16 U/L (5-34); Albumin 4.3 g/dL (3.4-4.8); Alkaline Phosphatase 115 U/L (40-110); Anion Gap 17 mmol/L (10-20); BUN (Urea Nitrogen) 32 mg/dL (9.8-20.1); Calc. Creatinine Clearance 0 mL/min (70-130); Calcium 10.7 mg/dL (7.8-10.44); Carbon Dioxide 22 mmol/L (23-31); Chloride 95 mmol/L (98-107); Estimated GFR-MDRD 27; Globulin 4.3 g/dL (2.4-3.5); Potassium 4.2 mmol/L (3.5-5.1); Protein, Total 8.6 g/dL (6.0-8.3); Sodium 130 mmol/L (136-145)
[2020-03-04 09:03] LABS: Glucose 703 mg/dL (83-110)
[2020-03-04] MEDS ORDERED: Dextrose 50% Abboject 50 ML SYRINGE SLOW IVP PRN (10:03)
[2020-03-04] MEDS ORDERED: Dextrose 5% in Water 1,000 ML IV PRN (10:03)
[2020-03-04] MEDS ORDERED: Insulin Regular 300 UNITS/3 ML VIAL ONE (10:36)
[2020-03-04] MEDS ORDERED: Aspirin 300 MG Suppository ONE (10:36)
[2020-03-04] MEDS ORDERED: Aspirin Chewable 81 MG TAB ONE (11:19)
[2020-03-04] MEDS: Sodium Chloride 0.9% 1,000 ML IV SCH (11:24)
[2020-03-04 11:40] LABS: Bilirubin Negative (Negative); Blood, Urine 1+ (Negative); Clarity Turbid (Clear); Glucose, Urine (Dipstick) Greater than 1000 mg/dL (Negative); Ketone, Urine Negative (Negative); Leukocyte Negative Leu/uL (Negative); Nitrite Negative (Negative); Protein, Urine (Dipstick) 30 mg/dL (Neg-Trace); Specific Gravity, Urine 1.021 (1.002-1.036); Squamous Epithelial 0-3 HPF (0-3); Urobilinogen Normal mg/dL (Less than 2); pH, Urine 6.5 (5.0-9.0)
[2020-03-04 11:49] LABS: Bacteria/HPF None Seen HPF (None Seen)
--- NOTE | 2020-03-04 12:25 | HP ---
CHIEF COMPLAINT: Right-sided facial droop and slurred speech. HISTORY OF PRESENT ILLNESS: The patient is a very pleasant 84-year-old female, who lives alone. She has a history of bladder cancer and atrial fibrillation, currently on Xarelto, is compliant with her medications, who presents to the hospital with complaints of right-sided droopiness and unsteady gait and slurred speech going on since this morning. The patient's daughter was at the bedside states that she went to b[place]ai, she was fine. She woke up this morning, did not feel well. The patient called the daughter, stated that she wanted her to come and help her. When the daughter got to the patient's house, she noted that the patient was sitting at the side of the bed. Her right-sided face had significant droopiness and also she was very unsteady and had some slurred speech. She denies any fevers, chills, nausea, vomiting, or diarrhea. PAST MEDICAL HISTORY: 1. She has a history of atrial fibrillation, rate controlled, currently sinus on anticoagulation. 2. History of bladder cancer. 3. Hyperlipidemia. PAST SURGICAL HISTORY: She has had thyroidectomy. She has had left shoulder surgery, left total knee replacement, hysterectomy, and appendectomy. She has had back surgery. She has had a pacemaker placement. She has also has [place] pouch status post neobladder formation in 2011. ALLERGIES: SHE IS ALLERGIC TO [place]. MEDICATIONS: She is on the following, she is on; 1. Diltiazem 180 mg daily. 2. Carvedilol 25 mg daily. 3. Sotalol 120 mg b.i.d. 4. Esomeprazole 40 mg daily. 5. She takes Xarelto 20 mg daily. 6. Sotalol 120 at night. 7. At bedtime, she takes an Ambien and Lyrica. 8. She takes [place] 150 mg in the morning. REVIEW OF SYSTEMS: All negative except for the ones mentioned above in the HPI. PHYSICAL EXAMINATION: VITAL SIGNS: As of the following; temperature 97.7, blood pressure 142/82, heart rate 71, O2 saturation 99% on room air, respiratory rate 18. GENERAL: She is awake, alert, and oriented x3. Does not appear in any distress. CV: Regular. S1 and S2 present. She does have a systolic murmur on her left sternal border. LUNGS: Clear to auscultation. No rhonchi or wheezes noted. ABDOMEN: Soft and nontender. Bowel sounds are present x2. EXTREMITIES: No edema. Pedal pulses are present x2. NEUROLOGIC: Neurovascular mendez, she has no deficits in bilateral upper extremity and bilateral lower extremity. Bjqice-ca-fazm and ogbl-qj-sqzf intact. She does have significant droopiness on her right side and she does have difficulty swallowing. LABORATORY RESULTS: As of the following; sodium of 130, potassium of 4.2, BUN of 32, creatinine of 1.76 with a GFR of 27, glucose of 703, and calcium of 10.7. CT head, no acute intracranial findings just involuntary changes of chronic ischemia and white matter. Her WBCs of 4.8, hemoglobin of 14.9, and hematocrit of 43.7. Her EKG appears to be paced. She does have a pacemaker. ASSESSMENT AND PLAN: The patient is a very pleasant 84-year-old female, who presents to the hospital with complaints of stroke like symptoms. 1. Right-sided facial droop with slurred speech, most likely from stroke. The patient cannot have an MRI given her pacemaker. We will probably repeat a CT of the brain in the morning. We will get Neurology to see this patient. We will get an echocardiogram. We will get carotid Dopplers. The patient was supposed to get CTA; however, given her elevated creatinine, this was discussed with the on-call neurosurgeon, who recommended against it. We will also get Speech to see this patient. PT/OT. 2. Elevated blood sugar. The patient denies any history of diabetes. I will check hemoglobin A1c. Her sugars were in the 700. She has been feeling thirsty for the past few days. She is not DKA. I will give her some insulin and continue to monitor. 3. Hypercalcemia. Again, we will hydrate her. We will continue to monitor. 4. Acute kidney injury. Again, we will start some hydration. We will recheck her creatinine later. The patient states that she has been urinating without any difficulties. 5. Deep venous thrombosis prophylaxis. The patient is already on Xarelto. We may hold it for today and go from there. 6. If the patient is unable to pass swallow, she may require an NG tube placement. However, we will get Speech to see this patient. Job ID: [id number]
--- NOTE | 2020-03-04 15:16 | CON ---
NEUROLOGY CONSULTATION DATE OF CONSULTATION: 03/04/2020 REASON FOR CONSULTATION: Right facial droop, slurred speech, dysphagia. HISTORY OF PRESENT ILLNESS: Ms. Goff is an 84-year-old female with medical history significant for atrial fibrillation, rate controlled on anticoagulation; history of bladder cancer; and hyperlipidemia; presented with right facial droop, unsteady gait, right-sided weakness, slurred speech, and dysphagia. History was obtained from the patient. Per the patient, she was in the buddhism and woke up and did not feel well. She asked her daughter to come and help her out at the house, where she noticed the right-sided weakness with right facial droop, dysarthria, and she has difficulty swallowing, so decided to bring her to the emergency room for further evaluation. The patient denies nausea, vomiting, headache, chest pain, abdominal pain, recent problems with blurred vision, double vision, loss of consciousness, altered mental status, recent illness or contact with COVID associated with these symptoms. REVIEW OF SYSTEMS: All systems reviewed and were negative except the pertinent positives and negatives mentioned in the HPI. PAST MEDICAL HISTORY: Atrial fibrillation, history of bladder cancer, hyperlipidemia. 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 ALLERGIES: [place]. HOME MEDICATIONS: 1. Diltiazem 180 mg daily. 2. Carvedilol 25 mg daily. 3. Sotalol 120 mg b.i.d. 4. Esomeprazole 40 mg daily. 5. Xarelto 20 mg daily. 6. Sotalol 120 mg at night. 7. Ambien. 8. Lyrica. 9. [place] 150 mg in the morning. PHYSICAL EXAMINATION: VITAL SIGNS: Blood pressure 140/80, pulse 80, respiratory rate 18. GENERAL: Alert, awake female, in no acute distress. CVS: Regular rate and rhythm. CHEST: Clear. ABDOMEN: Soft. NECK: Supple. NEUROLOGIC: Mental status; the patient is alert and oriented to person, place, and time. Speech is slurred. Cranial nerves 2 through 12 intact except 7, right facial droop; 9 and 10, dysarthria. Motor; muscle tone and bulk are normal. Moving all 4 extremities equally and symmetrically. Sensory; withdraws to nailbed pressure bilaterally. Cerebellar; finger-nose testing intact. Gait; deferred from the patient's safety reason. DIAGNOSTIC STUDIES: Data reviewed. CT reviewed, which was negative for acute intracranial pathology. ASSESSMENT AND PLAN: Ms. Goff is an 84-year-old female, presented with stroke-like symptoms, most likely stroke. The patient cannot have an MRI of the brain due to pacemaker. Consider repeat head CT tomorrow. Consider 2D echocardiogram, carotid Dopplers, and telemetry. The patient has history of atrial fibrillation. Dr. Calvert is the patient's primary semiconductor bonder, who has ALREADY been called by the patient's daughter. Neuro checks every 4 hours. Permissive control of blood pressure at this time. Strict control of blood glucose. Check hemoglobin A1c, fasting lipid panel, and TSH. PT/OT/speech. DVT prophylaxis. Continue Xarelto for secondary stroke prevention. Start statin for secondary stroke prevention. Continue medical management per primary team. NPO until cleared by bedside swallow evaluation. PT/OT. We will continue to follow. Plan discussed with the patient and the primary attending Dr. Edwards. Thank you for the consult. Job ID: [id number] CARLOS A
--- NOTE | 2020-03-04 15:56 | ULT ---
BILATERAL CAROTID DUPLEX ULTRASOUND: DATE: 03/04/2020 HISTORY: Stroke, CVA. TECHNIQUE: Fabian scale ultrasound with color flow and spectral Doppler imaging of the extracranial carotid artery systems performed bilaterally. FINDINGS: There is plaque formation on both sides. The peak systolic velocity in the right ICA measures 79 cm/second with an end-diastolic velocity of 2 2 cm/second and a systolic ratio of 1.1. The peak systolic velocity in the left ICA measures 101 cm/second with an end-diastolic velocity of 2 7 cm/second and a systolic ratio of 1.1. Flow in both vertebral arteries remains antegrade. IMPRESSION: No evidence of hemodynamically significant stenosis. POS: AH
[2020-03-04] MEDS ORDERED: tiZANidine HCl 4 MG TAB PO PRN (17:41)
[2020-03-04] MEDS ORDERED: Acetaminophen/Codeine 30-300mg Tablet ONE (18:45)
[2020-03-04] MEDS: Acetaminophen/Codeine 30-300mg Tablet PO PRN (18:46)
[2020-03-04] MEDS: Insulin Glargine 6 UNITS in Pre-Filled Syringe 1 EACH SC SCH (21:14)
[2020-03-04] MEDS: Pregabalin 50 MG CAP PO SCH ×2 (23:23→23:41)
[2020-03-04] MEDS: Atorvastatin Calcium 40 MG TAB PO SCH ×2 (23:23→23:44)
[2020-03-04] MEDS: Zolpidem Tartrate 5 MG TAB PO SCH ×2 (23:24→23:42)
[2020-03-04] MEDS: Sotalol HCl 80 MG TAB PO SCH ×2 (23:24→23:43)
[2020-03-05] MEDS: Sodium Chloride 0.9% 1,000 ML IV SCH ×2 (01:18→14:24)
[2020-03-05 03:16] VITALS: BMI 27.0
[2020-03-05 04:52] LABS: Hemoglobin 12.9 g/dL (12.0-16.0); Platelet Count 164 thou/uL (130-400)
[2020-03-05 05:07] LABS: Cardiac Risk 7.7 (Less than 4.5)
[2020-03-05] MEDS: HumaLOG 300 UNITS/3 ML VIAL SC PRN ×3 (06:17→17:32)
[2020-03-05] MEDS ORDERED: Aspirin 325 mg Enteric Coated Tablet PO SCH (09:00)
[2020-03-05] MEDS ORDERED: Enoxaparin Sodium 40 MG/0.4 ML SYRINGE SC SCH (09:00)
[2020-03-05] MEDS: Sotalol HCl 80 MG TAB PO SCH ×2 (09:14→21:06)
[2020-03-05] MEDS: Aspirin 81 mg Enteric Coated Tablet PO SCH (09:14)
[2020-03-05] MEDS: Acetaminophen/Codeine 30-300mg Tablet PO PRN ×2 (09:14→17:30)
--- NOTE | 2020-03-05 09:29 | PDOC.HOSPP ---
- Subjective Encounter Date: 03/05/20 Encounter Time: 09:25 Subjective: f/u for suspected CVA vs TIA with R sided weakness, dysarthria, dysphagia. Receiving ASA/Lipitor/Coreg. CT brain showed no acute process but no MRI performed due to pacemaker. - Objective Vital Signs & Weight: Vital Signs (12 hours) Temp Pulse Resp BP BP BP Pulse Ox 03/05/20 09:14 89 195/97 H 03/05/20 07:39 97.9 F 68 13 177/77 H 96 03/05/20 03:41 97.9 F 71 18 143/63 H 96 03/04/20 23:43 73 16 177/8 H 03/04/20 23:32 97.8 F 97 03/04/20 21:30 98.0 F 79 16 199/87 H 100 Weight Weight 162 lb 9.6 oz I&O: 03/04/20 03/05/20 03/06/20 06:59 06:59 06:59 Intake Total 843 Output Total 125 Balance 718 Result Diagrams: 03/05/20 04:25 03/05/20 10:24 Additional Labs: Accuchecks 03/04/20 03/04/20 19:57 11:07 POC Glucose 328 H 497 H Laboratory Tests 03/04/20 03/04/20 03/04/20 08:00 08:00 08:00 INR 2.4 Hemoglobin A1c 12.0 H Magnesium 1.7 Radiology Reviewed by me: Yes (CT brain - no acute infarct, chronic isc changes) EKG Reviewed by me: Yes (Tele - Paced in 80's) Hospitalist ROS - Medication Medications: Active Medications Generic Name Dose Route Start Last Admin Trade Name Freq PRN Reason Stop Dose Admin Acetaminophen/Codeine Phosphate 1 tab 03/04/20 18:14 03/05/20 09:14 Acetaminophen/Codeine 30-300mg Tablet PO 1 tab Q6H PRN Administration Pain Aspirin 81 mg 03/05/20 09:00 03/05/20 09:14 Aspirin 81 Mg Enteric Coated Tablet PO 81 mg DAILY DANIELA Administration Atorvastatin Calcium 40 mg 03/04/20 21:00 03/04/20 23:44 Atorvastatin Calcium 40 Mg Tab PO 40 mg HS DANIELA Administration Sodium Chloride 1,000 mls @ 75 mls/hr 03/04/20 10:15 03/05/20 01:18 Normal Saline 0.9% IV 1,000 mls .[id number] DANIELA Administration Insulin Glargine 6 units/ 0.06 mls @ 0 mls/hr 03/04/20 21:00 03/04/20 21:14 Miscellaneous Medication SC 0.06 mls HS DANIELA Administration Insulin Human Lispro 0 units 03/04/20 10:03 03/05/20 06:17 Humalog 300 Units/3 Ml Vial SC 5 unit .MILD SLIDING SCALE PRN Administration Mild Correctional Scale Pregabalin 100 mg 03/04/20 21:00 03/04/20 23:41 Pregabalin 50 Mg Cap PO 100 mg HS DANIELA Administration Sotalol HCl 120 mg 03/04/20 21:00 03/05/20 09:14 Sotalol Hcl 80 Mg Tab PO 120 mg BID DANIELA Administration Zolpidem Tartrate 10 mg 03/04/20 21:00 03/04/20 23:42 Zolpidem Tartrate 5 Mg Tab PO 10 mg HS DANIELA Administration - Exam General Appearance: NAD, awake alert Eye: PERRL, anicteric sclera ENT: normocephalic atraumatic, no oropharyngeal lesions Neck: supple, symmetric, no JVD, no thyromegaly, no lymphadenopathy Heart: RRR, no gallops, no rubs, normal peripheral pulses Heart - other findings: S1, S2 Respiratory: CTAB, no wheezes, no rales, no ronchi, normal chest expansion, no tachypnea Gastrointestinal: soft, non-tender, non-distended, normal bowel sounds, no palpable masses Extremities: no cyanosis, no clubbing, no edema Skin: normal turgor, no lesions Neurological: cranial nerve grossly intact, no new deficit Musculoskeletal: normal tone, normal strength Psychiatric: normal affect, A&O x 3 Hosp A/P (1) TIA (transient ischemic attack) Code(s): G45.9 - TRANSIENT CEREBRAL ISCHEMIC ATTACK, UNSPECIFIED Status: Acute Plan: Suspected, repeat CT brain negative, continue routine stroke protocol, ASA/Lipitor, Neurology consult appreciated (2) Diabetes mellitus type 2, uncontrolled Code(s): E11.65 - TYPE 2 DIABETES MELLITUS WITH HYPERGLYCEMIA Status: Chronic Plan: Appears new-onset, continue Glargine 10u qam and 6u hs, ISS, Dietitian consult for education, ADA (3) STEPH (acute kidney injury) Code(s): N17.9 - ACUTE KIDNEY FAILURE, UNSPECIFIED Status: Acute Plan: Continue low-volume IVF's, avoid nephrotoxic meds and limit contrast (4) Chronic anticoagulation Code(s): Z79.01 - PHYSICIAN LIAISON (CURRENT) USE OF ANTICOAGULANTS Status: Chronic Plan: Continue Xarelto (5) Atrial fibrillation Code(s): I48.91 - UNSPECIFIED ATRIAL FIBRILLATION Status: Chronic Plan: Continue rate-control measures, Xarelto (6) Hyponatremia Code(s): E87.1 - HYPO-OSMOLALITY AND HYPONATREMIA Status: Acute Plan: Suspect pseudohyponatremia due to hyperglycemia (7) Hypercalcemia Code(s): E83.52 - HYPERCALCEMIA Status: Acute Plan: Secondary to STEPH, continue IVF's - Plan plan discussed w/ family, PT/OT, psychologist social, speech therapy, out of bed/ambulate, DVT proph w/SCDs Stable currently Continue routine stroke protocol OOB with PT Dietitian consult Repeat CT brain negative Continue ASA/Lipitor 2D echo pending Continue IVF's AM lab: BMP, H/H Likely home in 24h
[2020-03-05] MEDS ORDERED: cloNIDine 0.1 MG TAB PO SCH (10:00)
[2020-03-05] MEDS: Thyroid 60 MG TAB PO SCH (10:28)
[2020-03-05] MEDS: Insulin Glargine 10 UNITS in Pre-Filled Syringe 1 EACH SC SCH (10:31)
[2020-03-05 11:11] LABS: Anion Gap 15 mmol/L (10-20); BUN (Urea Nitrogen) 24 mg/dL (9.8-20.1); Calc. Creatinine Clearance 45 mL/min (70-130); Calcium 9.9 mg/dL (7.8-10.44); Carbon Dioxide 22 mmol/L (23-31); Chloride 107 mmol/L (98-107); Estimated GFR-MDRD 49; Glucose 266 mg/dL (83-110); Potassium 3.8 mmol/L (3.5-5.1); Sodium 140 mmol/L (136-145)
--- NOTE | 2020-03-05 12:07 | PDOC.NEUPN ---
- Subjective Encounter Date: 03/05/20 Subjective: Ms. Goff feels better today. Her neurological deficits improved since admission. - Objective Vital Signs & Weight: Vital Signs (12 hours) Temp Pulse Pulse Pulse Resp BP BP 03/05/20 11:24 97.6 F 72 16 03/05/20 10:27 142/72 H 03/05/20 09:14 89 195/97 H 03/05/20 08:45 89 89 237/125 H 03/05/20 07:39 97.9 F 68 13 03/05/20 03:41 97.9 F 71 18 BP BP BP Pulse Ox 03/05/20 11:24 175/72 H 95 03/05/20 10:27 03/05/20 09:14 03/05/20 08:45 195/97 H 03/05/20 07:39 177/77 H 96 03/05/20 03:41 143/63 H 96 Weight Admit Weight 162 lb 9.6 oz Weight 162 lb 9.6 oz I&O: 03/04/20 03/05/20 03/06/20 06:59 06:59 06:59 Intake Total 843 Output Total 125 Balance 718 Result Diagrams: 03/05/20 04:25 03/05/20 10:24 Additional Labs: Accuchecks 03/05/20 03/04/20 10:22 19:57 POC Glucose 251 H 328 H Radiology Reviewed by me: Yes EKG Reviewed by me: Yes ROS - Review of Systems Constitutional: denies: fever, chills, sweats, weakness, malaise, other Eyes: denies: pain, vision change, conjunctivae inflammation, eyelid inflammation, redness, other ENT: reports: other (Problem with swallowing). denies: ear pain, ear discharge, nose pain, nose discharge, nose congestion, mouth pain, mouth swelling, throat pain, throat swelling Respiratory: denies: cough, dry, shortness of breath, hemoptysis, SOB with excer tion, pleuritic pain, sputum, wheezing, other Gastrointestinal: denies: nausea, vomiting, abdominal pain, diarrhea, constipation, melena, hematochezia, other Genitourinary: denies: dysuria, frequency, incontinence, hematuria, retention, other Musculoskeletal: denies: neck pain, shoulder pain, arm pain, back pain, hand pain, leg pain, foot pain, other Neurological: reports: weakness, numbness, change in speech. denies: incoordination, confusion, seizures, other - Medication Medications: Active Medications Generic Name Dose Route Start Last Admin Trade Name Freq PRN Reason Stop Dose Admin Acetaminophen/Codeine Phosphate 1 tab 03/04/20 18:14 03/05/20 09:14 Acetaminophen/Codeine 30-300mg Tablet PO 1 tab Q6H PRN Administration Pain Aspirin 81 mg 03/05/20 09:00 03/05/20 09:14 Aspirin 81 Mg Enteric Coated Tablet PO 81 mg DAILY DANIELA Administration Atorvastatin Calcium 40 mg 03/04/20 21:00 03/04/20 23:44 Atorvastatin Calcium 40 Mg Tab PO 40 mg HS DANIELA Administration Sodium Chloride 1,000 mls @ 75 mls/hr 03/04/20 10:15 03/05/20 01:18 Normal Saline 0.9% IV 1,000 mls .[id number] DANIELA Administration Insulin Glargine 6 units/ 0.06 mls @ 0 mls/hr 03/04/20 21:00 03/04/20 21:14 Miscellaneous Medication SC 0.06 mls HS DANIELA Administration Insulin Glargine 10 units/ 0.1 mls @ 0 mls/hr 03/05/20 10:00 03/05/20 10:31 Miscellaneous Medication SC 0.1 mls QAM DANIELA Administration Insulin Human Lispro 0 units 03/04/20 10:03 03/05/20 06:17 Humalog 300 Units/3 Ml Vial SC 5 unit .MILD SLIDING SCALE PRN Administration Mild Correctional Scale Pregabalin 100 mg 03/04/20 21:00 03/04/20 23:41 Pregabalin 50 Mg Cap PO 100 mg HS DANIELA Administration Sotalol HCl 120 mg 03/04/20 21:00 03/05/20 09:14 Sotalol Hcl 80 Mg Tab PO 120 mg BID DANIELA Administration Thyroid 90 mg 03/05/20 09:00 03/05/20 11:29 Thyroid 90 Mg Tab PO 90 mg DAILY DANIELA Administration Thyroid 60 mg 03/05/20 09:00 03/05/20 10:28 Thyroid 60 Mg Tab PO 60 mg DAILY DANIELA Administration Zolpidem Tartrate 10 mg 03/04/20 21:00 03/04/20 23:42 Zolpidem Tartrate 5 Mg Tab PO 10 mg HS DANIELA Administration - Exam General Appearance: awake alert Eye: PERRL, anicteric sclera ENT: normocephalic atraumatic Neck: supple Respiratory: CTAB Cardiovascular: RRR Gastrointestinal: soft Extremities: no cyanosis Skin: normal turgor Neurological: CN's grossly intact, no new deficit Musculoskeletal: normal tone PSYCH: normal affect, normal behavior, A&O x 3 Results - Labs Result Diagrams: 03/05/20 04:25 03/05/20 10:24 Lab results: WBC 4.8 thou/uL (4.8-10.8) 03/04/20 08:00 Hgb 12.9 g/dL (12.0-16.0) 03/05/20 04:25 Hct 37.8 % (36.0-47.0) 03/05/20 04:25 MCV 87.6 fL (78.0-98.0) 03/04/20 08:00 Plt Count 164 thou/uL (130-400) 03/05/20 04:25 Neutrophils % 73.6 % (42.0-75.0) 03/04/20 08:00 Sodium 140 mmol/L (136-145) 03/05/20 10:24 Potassium 3.8 mmol/L (3.5-5.1) 03/05/20 10:24 Chloride 107 mmol/L (98-107) 03/05/20 10:24 Carbon Dioxide 22 mmol/L (23-31) L 03/05/20 10:24 BUN 24 mg/dL (9.8-20.1) H 03/05/20 10:24 Creatinine 1.06 mg/dL (0.6-1.1) 03/05/20 10:24 Glucose 266 mg/dL (83-110) H 03/05/20 10:24 Calcium 9.9 mg/dL (7.8-10.44) 03/05/20 10:24 Total Bilirubin 1.0 mg/dL (0.2-1.2) 03/04/20 08:00 AST 16 U/L (5-34) 03/04/20 08:00 ALT 23 U/L (8-55) 03/04/20 08:00 Alkaline Phosphatase 115 U/L (40-110) H 03/04/20 08:00 Troponin I 0.021 ng/mL (< 0.028) 03/04/20 08:00 Serum Total Protein 8.6 g/dL (6.0-8.3) H 03/04/20 08:00 Albumin 4.3 g/dL (3.4-4.8) 03/04/20 08:00 Urine Ketones Negative mg/dL (Negative) 03/04/20 11:10 Urine Blood 1+ (Negative) A 03/04/20 11:10 Urine Nitrite Negative (Negative) 03/04/20 11:10 Ur Leukocyte Esterase Negative Juan/uL (Negative) 03/04/20 11:10 Urine RBC 4-6 HPF (0-3) A 03/04/20 11:10 Urine WBC 4-6 HPF (0-3) A 03/04/20 11:10 Ur Squamous Epith Cells 0-3 HPF (0-3) 03/04/20 11:10 Urine Bacteria None Seen HPF (None Seen) 03/04/20 11:10 - Radiology Interpretation CT scan - head Status: image reviewed by me, report reviewed by me Additional Comment: Reviewed which was negative for acute intracranial pathology PN A/P (1) TIA (transient ischemic attack) Code(s): G45.9 - TRANSIENT CEREBRAL ISCHEMIC ATTACK, UNSPECIFIED Status: Acute (2) STEPH (acute kidney injury) Code(s): N17.9 - ACUTE KIDNEY FAILURE, UNSPECIFIED Status: Acute (3) Atrial fibrillation Code(s): I48.91 - UNSPECIFIED ATRIAL FIBRILLATION Status: Chronic (4) CAD (coronary artery disease) Code(s): I25.10 - ATHSCL HEART DISEASE OF [place] CORONARY ARTERY W/O ANG PCTRS Status: Acute (5) Chronic anticoagulation Code(s): Z79.01 - SENIOR CARE (CURRENT) USE OF ANTICOAGULANTS Status: Chronic (6) CKD (chronic kidney disease), stage III Code(s): N18.3 - CHRONIC KIDNEY DISEASE, STAGE 3 (MODERATE) * DO NOT USE * Status: Acute (7) Diabetes mellitus type 2, uncontrolled Code(s): E11.65 - TYPE 2 DIABETES MELLITUS WITH HYPERGLYCEMIA Status: Chronic - Plan Daily Plan: PT/OT, speech therapy, DVT proph w/SCDs Ms. Goff is a 84-year-old female with history significant for hypertension, chronic kidney disease, atrial fibrillation and s/p place maker placement presented with dysarthria right facial droop, dysphagia and right-sided weakness. Head CT did not reveal any acute intracranial pathology. MRI of the brain is not possible due to incompatible pacemaker device. Repeat head CT to assess for acute intracranial process. Neurological deficits improve some most likely TIA versus acute lacunar infarct. Neurochecks every 4 hours. Continue high intensity statin for secondary stroke prevention. Telemetrypatient has atrial fibrillation. Continue Xarelto for an atrial fibrillation and also for secondary stroke prevention. Carotid Dopplers did not reveal hemodynamically significant stenosis. Continue speech eval for dysphagia and continue speech therapy Permissive control of blood pressure at this time. Strict control of blood glucose Continue home medications PT/OT DVT prophylaxis Continue medical management per primary team.
[2020-03-05 12:13] LABS: SARS-CoV-2 MS2 Positive; SARS-CoV-2 N Gene Negative; SARS-CoV-2 S Gene Negative; SARS-CoV-2 by NAA Not Detected (NotDetected); SARS-CoV-2 orf1ab Negative
[2020-03-05] MEDS ORDERED: Ketorolac Tromethamine 30 MG/ML VIAL IVP PRN (14:16)
--- NOTE | 2020-03-05 16:05 | CT ---
Exam: Head CT without contrast HISTORY: Stroke versus CVA. COMPARISON: 03/04/2020 FINDINGS: Hemorrhage: No intraparenchymal hemorrhage or extra-axial hematoma. Brain parenchyma: Cortical aguila-white matter differentiation is preserved. No mass effect or midline shift. Basilar cisterns are patent.Stable chronic small vessel ischemic changes of the white matter Ventricular system: Ventricles and sulci are patent and symmetric. Calvarium: Intact. Sinuses and mastoid air cells: Redemonstration of previous sinonasal surgery, incompletely evaluated IMPRESSION: 1. No acute intracranial process. 2. No significant interval change.
[2020-03-05] MEDS: Rivaroxaban 10 MG TAB PO SCH (17:30)
[2020-03-05] MEDS: Insulin Glargine 6 UNITS in Pre-Filled Syringe 1 EACH SC SCH (21:04)
[2020-03-05] MEDS: Cholecalciferol 1,000 UNITS (25 MCG) TAB PO SCH (21:05)
[2020-03-05] MEDS: Pregabalin 50 MG CAP PO SCH (21:05)
[2020-03-05] MEDS: Atorvastatin Calcium 40 MG TAB PO SCH (21:05)
[2020-03-05] MEDS: Carvedilol 25 MG TAB PO SCH (21:05)
[2020-03-05] MEDS: HYDROcodone/Acetaminophen 5/325 mg Tablet PO PRN (21:07)
[2020-03-05] MEDS: Zolpidem Tartrate 5 MG TAB PO SCH (21:26)
[2020-03-06] MEDS: Sodium Chloride 0.9% 1,000 ML IV SCH ×2 (04:25→18:57)
[2020-03-06 04:55] LABS: Anion Gap 14 mmol/L (10-20); BUN (Urea Nitrogen) 20 mg/dL (9.8-20.1); Calc. Creatinine Clearance 49 mL/min (70-130); Calcium 9.5 mg/dL (7.8-10.44); Carbon Dioxide 19 mmol/L (23-31); Chloride 112 mmol/L (98-107); Estimated GFR-MDRD 55; Glucose 171 mg/dL (83-110); Potassium 3.7 mmol/L (3.5-5.1); Sodium 141 mmol/L (136-145)
[2020-03-06] MEDS: Sotalol HCl 80 MG TAB PO SCH ×2 (08:53→20:24)
[2020-03-06] MEDS: Aspirin 81 mg Enteric Coated Tablet PO SCH (08:54)
[2020-03-06] MEDS: Carvedilol 25 MG TAB PO SCH ×2 (08:54→20:22)
[2020-03-06] MEDS: Cholecalciferol 1,000 UNITS (25 MCG) TAB PO SCH ×2 (08:54→20:23)
[2020-03-06] MEDS: cloNIDine 0.1 MG TAB PO PRN ×2 (08:54→17:05)
[2020-03-06] MEDS: Insulin Glargine 10 UNITS in Pre-Filled Syringe 1 EACH SC SCH (08:54)
[2020-03-06] MEDS: Thyroid 60 MG TAB PO SCH (08:55)
--- NOTE | 2020-03-06 11:22 | PDOC.NEUPN ---
- Subjective Encounter Date: 03/06/20 Subjective: Ms. Goff has significant improvement in dysarthria since admission. She continues to have problems with swallowing and is scheduled for met modified barium swallow today. Speech is on board. - Objective Vital Signs & Weight: Vital Signs (12 hours) Temp Pulse Resp BP BP Pulse Ox 03/06/20 08:54 228/99 H 03/06/20 08:53 74 03/06/20 07:50 97.9 F 74 18 188/84 H 95 03/06/20 03:37 97.5 F L 78 14 170/76 H 95 03/05/20 23:44 97.6 F 71 14 114/56 L 98 Weight Admit Weight 162 lb 9.6 oz Weight 162 lb 9.6 oz I&O: 03/05/20 03/06/20 03/07/20 06:59 06:59 06:59 Intake Total 843 950 Output Total 125 1250 Balance 718 -300 Result Diagrams: 03/05/20 04:25 03/06/20 04:14 Additional Labs: Accuchecks 03/06/20 03/05/20 03/05/20 05:39 21:03 16:23 POC Glucose 169 H 120 H 249 H 03/05/20 03/04/20 06:01 08:04 POC Glucose 307 H Greater than 500 H Radiology Reviewed by me: Yes EKG Reviewed by me: Yes ROS - Review of Systems Constitutional: denies: fever, chills, sweats, weakness, malaise, other Eyes: denies: pain, vision change, conjunctivae inflammation, eyelid inflammation, redness, other ENT: denies: ear pain, ear discharge, nose pain, nose discharge, nose congestion, mouth pain, mouth swelling, throat pain, throat swelling, other Respiratory: denies: cough, dry, shortness of breath, hemoptysis, SOB with excertion, pleuritic pain, sputum, wheezing, other Cardiovascular: denies: no pertinent history, AFIB, CAD, CHF, HTN, TN, Syncope, Hyperlipidemia, Mitral valve stenosis, Aortic stenosis, Valve insufficiency, Pulmonary hypertension, Other Gastrointestinal: denies: nausea, vomiting, abdominal pain, diarrhea, constipation, melena, hematochezia, other Genitourinary: denies: dysuria, frequency, incontinence, hematuria, retention, other Musculoskeletal: denies: neck pain, shoulder pain, arm pain, back pain, hand pain, leg pain, foot pain, other Neurological: denies: weakness, numbness, incoordination, change in speech, confusion, seizures, other All Systems: All other systems reviewed; all pertinent +/- noted in HPI/Subj - Medication Medications: Active Medications Generic Name Dose Route Start Last Admin Trade Name Freq PRN Reason Stop Dose Admin Acetaminophen/Codeine Phosphate 1 tab 03/04/20 18:14 03/05/20 17:30 Acetaminophen/Codeine 30-300mg Tablet PO 1 tab Q6H PRN Administration Pain Hydrocodone Bitart/Acetaminophen 1 tab 03/05/20 21:00 03/05/20 21:07 Hydrocodone/Acetaminophen 5/325 Mg Tablet PO 1 tab HS PRN Administration Pain Aspirin 81 mg 03/05/20 09:00 03/06/20 08:54 Aspirin 81 Mg Enteric Coated Tablet PO 81 mg DAILY DANIELA Administration Atorvastatin Calcium 40 mg 03/04/20 21:00 03/05/20 21:05 Atorvastatin Calcium 40 Mg Tab PO 40 mg HS DANIELA Administration Carvedilol 25 mg 03/05/20 21:00 03/06/20 08:54 Carvedilol 25 Mg Tab PO 25 mg BID DANIELA Administration Cholecalciferol 1,000 units 03/05/20 21:00 03/06/20 08:54 Cholecalciferol 1,000 Units (25 Mcg) Tab PO 1,000 units BID DANIELA Administration Clonidine 0.1 mg 03/05/20 20:22 03/06/20 08:54 Clonidine 0.1 Mg Tab PO 0.1 mg Q4H PRN Administration SBP Greater Than 180 Sodium Chloride 1,000 mls @ 75 mls/hr 03/04/20 10:15 03/06/20 04:25 Normal Saline 0.9% IV 1,000 mls .[id number] DANIELA Administration Insulin Glargine 6 units/ 0.06 mls @ 0 mls/hr 03/04/20 21:00 03/05/20 21:04 Miscellaneous Medication SC 0.06 mls HS DANIELA Administration Insulin Glargine 10 units/ 0.1 mls @ 0 mls/hr 03/05/20 10:00 03/06/20 08:54 Miscellaneous Medication SC 0.1 mls QAM DANIELA Administration Insulin Human Lispro 0 units 03/04/20 10:03 03/05/20 17:32 Humalog 300 Units/3 Ml Vial SC 3 unit .MILD SLIDING SCALE PRN Administration Mild Correctional Scale Ketorolac Tromethamine 15 mg 03/05/20 14:16 03/05/20 14:23 Ketorolac Tromethamine 30 Mg/Ml Vial IVP 03/10/20 14:17 15 mg Q6H PRN Administration Pain Pregabalin 100 mg 03/04/20 21:00 03/05/20 21:05 Pregabalin 50 Mg Cap PO 100 mg HS DANIELA Administration Rivaroxaban 20 mg 03/05/20 17:00 03/05/20 17:30 Rivaroxaban 10 Mg Tab PO 20 mg 1700 DANIELA Administration Sotalol HCl 120 mg 03/04/20 21:00 03/06/20 08:53 Sotalol Hcl 80 Mg Tab PO 120 mg BID DANIELA Administration Thyroid 90 mg 03/05/20 09:00 03/06/20 10:36 Thyroid 90 Mg Tab PO 90 mg DAILY DANIELA Administration Thyroid 60 mg 03/05/20 09:00 03/06/20 08:55 Thyroid 60 Mg Tab PO 60 mg DAILY DANIELA Administration Zolpidem Tartrate 10 mg 03/04/20 21:00 03/05/20 21:26 Zolpidem Tartrate 5 Mg Tab PO 10 mg HS DANIELA Administration - Exam General Appearance: awake alert Eye: PERRL ENT: normocephalic atraumatic Neck: supple Respiratory: CTAB Cardiovascular: RRR Gastrointestinal: soft Extremities: no cyanosis Skin: normal turgor Neurological: no new deficit, speech deficit Musculoskeletal: normal tone, no muscle wasting PSYCH: normal affect, normal behavior, A&O x 3, oriented to person, oriented to place, oriented to time Results - Labs Result Diagrams: 03/05/20 04:25 03/06/20 04:14 Lab results: WBC 4.8 thou/uL (4.8-10.8) 03/04/20 08:00 Hgb 12.9 g/dL (12.0-16.0) 03/05/20 04:25 Hct 37.8 % (36.0-47.0) 03/05/20 04:25 MCV 87.6 fL (78.0-98.0) 03/04/20 08:00 Plt Count 164 thou/uL (130-400) 03/05/20 04:25 Neutrophils % 73.6 % (42.0-75.0) 03/04/20 08:00 Sodium 141 mmol/L (136-145) 03/06/20 04:14 Potassium 3.7 mmol/L (3.5-5.1) 03/06/20 04:14 Chloride 112 mmol/L (98-107) H 03/06/20 04:14 Carbon Dioxide 19 mmol/L (23-31) L 03/06/20 04:14 BUN 20 mg/dL (9.8-20.1) 03/06/20 04:14 Creatinine 0.97 mg/dL (0.6-1.1) 03/06/20 04:14 Glucose 171 mg/dL (83-110) H 03/06/20 04:14 Calcium 9.5 mg/dL (7.8-10.44) 03/06/20 04:14 Total Bilirubin 1.0 mg/dL (0.2-1.2) 03/04/20 08:00 AST 16 U/L (5-34) 03/04/20 08:00 ALT 23 U/L (8-55) 03/04/20 08:00 Alkaline Phosphatase 115 U/L (40-110) H 03/04/20 08:00 Troponin I 0.021 ng/mL (< 0.028) 03/04/20 08:00 Serum Total Protein 8.6 g/dL (6.0-8.3) H 03/04/20 08:00 Albumin 4.3 g/dL (3.4-4.8) 03/04/20 08:00 Urine Ketones Negative mg/dL (Negative) 03/04/20 11:10 Urine Blood 1+ (Negative) A 03/04/20 11:10 Urine Nitrite Negative (Negative) 03/04/20 11:10 Ur Leukocyte Esterase Negative Juan/uL (Negative) 03/04/20 11:10 Urine RBC 4-6 HPF (0-3) A 03/04/20 11:10 Urine WBC 4-6 HPF (0-3) A 03/04/20 11:10 Ur Squamous Epith Cells 0-3 HPF (0-3) 03/04/20 11:10 Urine Bacteria None Seen HPF (None Seen) 03/04/20 11:10 - Radiology Interpretation CT scan - head Additional Comment: Head CT negative for acute intracranial pathology PN A/P (1) TIA (transient ischemic attack) Code(s): G45.9 - TRANSIENT CEREBRAL ISCHEMIC ATTACK, UNSPECIFIED Status: Acute (2) STEPH (acute kidney injury) Code(s): N17.9 - ACUTE KIDNEY FAILURE, UNSPECIFIED Status: Acute (3) Atrial fibrillation Code(s): I48.91 - UNSPECIFIED ATRIAL FIBRILLATION Status: Chronic (4) CAD (coronary artery disease) Code(s): I25.10 - ATHSCL HEART DISEASE OF [place] CORONARY ARTERY W/O ANG PCTRS Status: Acute (5) Chronic anticoagulation Code(s): Z79.01 - ASSISTED (CURRENT) USE OF ANTICOAGULANTS Status: Chronic (6) CKD (chronic kidney disease), stage III Code(s): N18.3 - CHRONIC KIDNEY DISEASE, STAGE 3 (MODERATE) * DO NOT USE * Status: Acute (7) Diabetes mellitus type 2, uncontrolled Code(s): E11.65 - TYPE 2 DIABETES MELLITUS WITH HYPERGLYCEMIA Status: Chronic - Plan Daily Plan: plan discussed w/ family, PT/OT, speech therapy, out of bed/ambulate Ms. Goff is a 84-year-old female with history significant for hypertension, chronic kidney disease, atrial fibrillation and s/p place maker placement presented with dysarthria right facial droop, dysphagia and right-sided weakness. Head CT did not reveal any acute intracranial pathology. MRI of the brain is not possible due to incompatible pacemaker device. She continues to have problem with swallowing but there is improvement in dysarthria. Tiny lacunar brainstem infarct could not be completely ruled out since MRI is not possible due to pacemaker. Patient scheduled for modified barium swallow today. Speech is on board Neurochecks every 4 hours. Continue high intensity statin for secondary stroke prevention. Telemetrypatient has atrial fibrillation. Continue Xarelto for an atrial fibrillation and also for secondary stroke prevention. Carotid Dopplers did not reveal hemodynamically significant stenosis. Strict control of blood pressure and blood glucose. Continue home medications PT/OT DVT prophylaxis Continue medical management per primary team. Plan discussed in detail with the patient, patient's daughter and during stroke rounds.
--- NOTE | 2020-03-06 12:04 | RAD ---
Modified barium swallow: 03/06/2020 COMPARISON: None HISTORY: Dysphasia unspecified, pharyngeal phage dysphasia, dysphasia following cerebrovascular disea se FINDINGS: A modified barium swallow was performed in conjunction with a member division of speech pat hology. The patient is imaged in the lateral projection swallowing various consistencies of barium. No penetration or aspiration was seen. There is persistent residual within the vallecula with all con sistencies. Exposure data: 0.413 aguila per centimeter squared 1.6 minutes of fluoroscopic time IMPRESSION: Vallecular residual. No penetration or aspiration. Please see speech pathologist report f or full detail and feeding recommendations.
[2020-03-06] MEDS: HumaLOG 300 UNITS/3 ML VIAL SC PRN ×2 (13:06→17:03)
--- NOTE | 2020-03-06 13:58 | PDOC.HOSPP ---
- Subjective Encounter Date: 03/06/20 Encounter Time: 13:50 Subjective: f/u for CVA with dysarthria/dysphagia. Overall feels much better today. Ambulated with PT. BP remains labile per nursing. - Objective Vital Signs & Weight: Vital Signs (12 hours) Temp Pulse Resp BP BP Pulse Ox 03/06/20 11:39 97.5 F L 79 18 132/71 100 03/06/20 08:54 228/99 H 03/06/20 08:53 74 03/06/20 07:50 97.9 F 74 18 188/84 H 95 03/06/20 03:37 97.5 F L 78 14 170/76 H 95 Weight Admit Weight 162 lb 9.6 oz Weight 162 lb 9.6 oz I&O: 03/05/20 03/06/20 03/07/20 06:59 06:59 06:59 Intake Total 843 950 800 Output Total 125 1250 250 Balance 718 -300 550 Result Diagrams: 03/05/20 04:25 03/06/20 04:14 Additional Labs: Accuchecks 03/06/20 03/06/20 03/05/20 12:13 05:39 21:03 POC Glucose 213 H 169 H 120 H 03/05/20 03/05/20 03/04/20 16:23 06:01 08:04 POC Glucose 249 H 307 H Greater than 500 H Laboratory Tests 03/04/20 03/04/20 03/04/20 08:00 08:00 08:00 INR 2.4 Hemoglobin A1c 12.0 H Magnesium 1.7 Radiology Reviewed by me: Yes (MBS - no aspiration noted) EKG Reviewed by me: Yes (Tele - V-paced) Hospitalist ROS - Medication Medications: Active Medications Generic Name Dose Route Start Last Admin Trade Name Freq PRN Reason Stop Dose Admin Acetaminophen/Codeine Phosphate 1 tab 03/04/20 18:14 03/05/20 17:30 Acetaminophen/Codeine 30-300mg Tablet PO 1 tab Q6H PRN Administration Pain Hydrocodone Bitart/Acetaminophen 1 tab 03/05/20 21:00 03/05/20 21:07 Hydrocodone/Acetaminophen 5/325 Mg Tablet PO 1 tab HS PRN Administration Pain Aspirin 81 mg 03/05/20 09:00 03/06/20 08:54 Aspirin 81 Mg Enteric Coated Tablet PO 81 mg DAILY DANIELA Administration Atorvastatin Calcium 40 mg 03/04/20 21:00 03/05/20 21:05 Atorvastatin Calcium 40 Mg Tab PO 40 mg HS DANIELA Administration Carvedilol 25 mg 03/05/20 21:00 03/06/20 08:54 Carvedilol 25 Mg Tab PO 25 mg BID DANIELA Administration Cholecalciferol 1,000 units 03/05/20 21:00 03/06/20 08:54 Cholecalciferol 1,000 Units (25 Mcg) Tab PO 1,000 units BID DANIELA Administration Clonidine 0.1 mg 03/05/20 20:22 03/06/20 08:54 Clonidine 0.1 Mg Tab PO 0.1 mg Q4H PRN Administration SBP Greater Than 180 Sodium Chloride 1,000 mls @ 75 mls/hr 03/04/20 10:15 03/06/20 04:25 Normal Saline 0.9% IV 1,000 mls .[id number] DANIELA Administration Insulin Glargine 6 units/ 0.06 mls @ 0 mls/hr 03/04/20 21:00 03/05/20 21:04 Miscellaneous Medication SC 0.06 mls HS DANIELA Administration Insulin Glargine 10 units/ 0.1 mls @ 0 mls/hr 03/05/20 10:00 03/06/20 08:54 Miscellaneous Medication SC 0.1 mls QAM DANIELA Administration Insulin Human Lispro 0 units 03/04/20 10:03 03/06/20 13:06 Humalog 300 Units/3 Ml Vial SC 3 unit .MILD SLIDING SCALE PRN Administration Mild Correctional Scale Ketorolac Tromethamine 15 mg 03/05/20 14:16 03/05/20 14:23 Ketorolac Tromethamine 30 Mg/Ml Vial IVP 03/10/20 14:17 15 mg Q6H PRN Administration Pain Pregabalin 100 mg 03/04/20 21:00 03/05/20 21:05 Pregabalin 50 Mg Cap PO 100 mg HS DANIELA Administration Rivaroxaban 20 mg 03/05/20 17:00 03/05/20 17:30 Rivaroxaban 10 Mg Tab PO 20 mg 1700 DANIELA Administration Sotalol HCl 120 mg 03/04/20 21:00 03/06/20 08:53 Sotalol Hcl 80 Mg Tab PO 120 mg BID DANIELA Administration Thyroid 90 mg 03/05/20 09:00 03/06/20 10:36 Thyroid 90 Mg Tab PO 90 mg DAILY DANIELA Administration Thyroid 60 mg 03/05/20 09:00 03/06/20 08:55 Thyroid 60 Mg Tab PO 60 mg DAILY DANIELA Administration Zolpidem Tartrate 10 mg 03/04/20 21:00 03/05/20 21:26 Zolpidem Tartrate 5 Mg Tab PO 10 mg HS DANIELA Administration - Exam General Appearance: NAD, awake alert General - other findings: smiling, responsive Eye: PERRL, anicteric sclera ENT: normocephalic atraumatic, no oropharyngeal lesions Neck: supple, symmetric, no JVD, no thyromegaly, no lymphadenopathy Heart: RRR, no gallops, no rubs, normal peripheral pulses Heart - other findings: S1, S2 Respiratory: CTAB, no wheezes, no rales, no ronchi, normal chest expansion, no tachypnea Gastrointestinal: soft, non-tender, non-distended, normal bowel sounds, no palpable masses Extremities: no cyanosis, no clubbing, no edema Skin: normal turgor, no lesions Neurological: cranial nerve grossly intact, no new deficit Musculoskeletal: normal tone, generalized weakness Psychiatric: normal affect, A&O x 3 Hosp A/P (1) Acute CVA (cerebrovascular accident) Code(s): I63.9 - CEREBRAL INFARCTION, UNSPECIFIED Status: Acute Plan: Suspected but CT brain negative, no MRI imaging due to incompatible pacemaker, continue routine stroke protocol (2) Diabetes mellitus type 2, uncontrolled Code(s): E11.65 - TYPE 2 DIABETES MELLITUS WITH HYPERGLYCEMIA Status: Chronic Plan: Improved glucose trend, continue Lantus 10u am/ 6u qhs, ISS, ADA (3) STEPH (acute kidney injury) Code(s): N17.9 - ACUTE KIDNEY FAILURE, UNSPECIFIED Status: Acute Plan: Resolving, avoid nephrotoxic meds and limit contrast (4) Chronic anticoagulation Code(s): Z79.01 - AERODYNAMIC CONSULTANT (CURRENT) USE OF ANTICOAGULANTS Status: Chronic (5) Atrial fibrillation Code(s): I48.91 - UNSPECIFIED ATRIAL FIBRILLATION Status: Chronic (6) Hyponatremia Code(s): E87.1 - HYPO-OSMOLALITY AND HYPONATREMIA Status: Acute Plan: Resolved (7) Hypercalcemia Code(s): E83.52 - HYPERCALCEMIA Status: Acute Plan: Resolved - Plan PT/OT, bilingual social worker, speech therapy, out of bed/ambulate, DVT proph w/SCDs Stable currently Continue routine stroke protocol OOB with PT Dietitian consult appreciated Repeat CT brain negative Continue ASA/Lipitor Resume Diltiazem 180mg daily Continue IVF's Likely home in 24h
[2020-03-06] MEDS: Rivaroxaban 10 MG TAB PO SCH (17:05)
[2020-03-06] MEDS: Acetaminophen/Codeine 30-300mg Tablet PO PRN (17:06)
[2020-03-06] MEDS: Atorvastatin Calcium 40 MG TAB PO SCH (20:22)
[2020-03-06] MEDS: Fish Oil 1,000 MG CAP PO SCH (20:23)
[2020-03-06] MEDS: Pregabalin 50 MG CAP PO SCH (20:24)
[2020-03-06] MEDS: Zolpidem Tartrate 5 MG TAB PO SCH (20:25)
[2020-03-06] MEDS: HYDROcodone/Acetaminophen 5/325 mg Tablet PO PRN (20:25)
[2020-03-06] MEDS: Insulin Glargine 6 UNITS in Pre-Filled Syringe 1 EACH SC SCH (20:59)
[2020-03-07] MEDS: Acetaminophen/Codeine 30-300mg Tablet PO PRN ×2 (04:47→13:09)
[2020-03-07] MEDS: Sodium Chloride 0.9% 1,000 ML IV SCH (08:48)
[2020-03-07] MEDS ORDERED: Furosemide 20 MG TAB PO SCH (09:00)
[2020-03-07] MEDS ORDERED: Non-Formulary Item 1 EACH (Fexofenadine Hcl [Allegra Allergy] 180 MG Tablet) PO SCH (09:00)
[2020-03-07] MEDS ORDERED: Loratadine 10 MG TAB PO SCH (09:00)
[2020-03-07] MEDS: Carvedilol 25 MG TAB PO SCH (09:23)
[2020-03-07] MEDS: Fish Oil 1,000 MG CAP PO SCH (09:23)
[2020-03-07] MEDS: Cholecalciferol 1,000 UNITS (25 MCG) TAB PO SCH (09:24)
[2020-03-07] MEDS: Sotalol HCl 80 MG TAB PO SCH (09:25)
[2020-03-07] MEDS: Aspirin 81 mg Enteric Coated Tablet PO SCH (09:26)
[2020-03-07] MEDS: Thyroid 60 MG TAB PO SCH (09:26)
[2020-03-07] MEDS: Insulin Glargine 10 UNITS in Pre-Filled Syringe 1 EACH SC SCH (09:27)
[2020-03-07] MEDS: HumaLOG 300 UNITS/3 ML VIAL SC PRN (11:41)
--- NOTE | 2020-03-07 12:11 | PQF ---
CLINICAL DOCUMENTATION CLARIFICATION FORM: Dear Dr. KARLA CONTRERAS Date: 03-07-20 Please exercise your independent, professional judgment in responding to the clarification form. Clinical indicators are provided on the bottom of this form for your review. Please check appropriate box(es): [ X ] Encephalopathy: Type: [ X ] Acute [ ] Subacute [ ] Chronic Etiology: [ ] Hypertensive [ X ] Metabolic [ ] Toxic [ ] Other (please specify) [ ] Transient Alteration of Awareness [ ] Other diagnosis [ ] Unable to determine In addition, please specify: Present on Admission (POA): [ X ] Yes [ ] No [ ] Unable to determine For continuity of documentation, please document condition throughout progress notes and discharge summary. Thank You. To be completed by CDI/Coding staff for physician review: CLINICAL INDICATORS - SIGNS / SYMPTOMS / LABS / RESULTS AND LOCATION IN EMR: H&P 03-05-20: TODAY HIS NOTICED THAT AFTER SHE TRIED TO GIVE HIM A CUP OF coffee and he was not able to hold a cup of coffee, ALSO HE WENT TO BATHROOM, WAS NOT ABLE TO STAND AFTER SITTING ON TOILET SEAT. WORSENING OF HIS BRAIN METASTASES WITH VASOGENIC EDEMA, ALSO APPEARS TO HAVE ACUTE KIDNEY INSUFFICIENCY. PN DR. CONTRERAS 03-06-20: NOTES THAT HE HAS BEEN QUITE CONFUSED EVER SINCE ADMISSION. A LITTLE CONFUSED TO WHAT HAS HAPPENED AT HOSPITAL RISK FACTORS / RESULTS AND LOCATION IN EMR: H&P 03-05-20: WORSENING OF HIS BRAIN METASTASES WITH VASOGENIC EDEMA, ALSO APPEARS TO HAVE ACUTE KIDNEY INSUFFICIENCY. TREATMENTS / RESULTS AND LOCATION IN EMR: MAR: 03-05-20: [facility] IVP, IVF CT BRAIN 03-05-20 CDS Signature: Maci Cabrera Phone #: [phone] Date/Time: 03-07-20 This is a permanent part of the Medical Record [facility]
--- NOTE | 2020-03-07 14:15 | PDOC.NEUPN ---
- Subjective Encounter Date: 03/07/20 Subjective: Ms. Goff feels much better today. Her speech is much improved but she is still having trouble with swallowing. Modified barium swallow completed yesterday and she was able to eat this modified meal this morning. - Objective Vital Signs & Weight: Vital Signs (12 hours) Temp Pulse Resp BP BP Pulse Ox 03/07/20 12:10 98.9 F 71 17 151/73 H 96 03/07/20 08:00 97.9 F 76 11 L 170/74 H 96 03/07/20 06:47 97.9 F 73 15 132/65 96 Weight Admit Weight 162 lb 9.6 oz Weight 162 lb 9.6 oz I&O: 03/06/20 03/07/20 03/08/20 06:59 06:59 06:59 Intake Total 950 3005 Output Total 1250 1275 Balance -300 1730 Result Diagrams: 03/05/20 04:25 03/06/20 04:14 Additional Labs: Accuchecks 03/07/20 03/07/20 03/06/20 10:34 05:30 20:53 POC Glucose 194 H 129 H 185 H 03/06/20 17:02 POC Glucose 164 H Radiology Reviewed by me: Yes EKG Reviewed by me: Yes ROS - Review of Systems Constitutional: denies: fever, chills, sweats, weakness, malaise, other Eyes: denies: pain, vision change, conjunctivae inflammation, eyelid inflammatio n, redness, other ENT: denies: ear pain, ear discharge, nose pain, nose discharge, nose congestion, mouth pain, mouth swelling, throat pain, throat swelling, other Respiratory: denies: cough, dry, shortness of breath, hemoptysis, SOB with excertion, pleuritic pain, sputum, wheezing, other Gastrointestinal: denies: nausea, vomiting, abdominal pain, diarrhea, constipation, melena, hematochezia, other Genitourinary: denies: dysuria, frequency, incontinence, hematuria, retention, other Musculoskeletal: denies: neck pain, shoulder pain, arm pain, back pain, hand pain, leg pain, foot pain, other Skin: denies: rash, lesions, kayla, bruising, other All Systems: All other systems reviewed; all pertinent +/- noted in HPI/Subj - Medication Medications: Active Medications Generic Name Dose Route Start Last Admin Trade Name Freq PRN Reason Stop Dose Admin Acetaminophen/Codeine Phosphate 1 tab 03/04/20 18:14 03/07/20 13:09 Acetaminophen/Codeine 30-300mg Tablet PO 1 tab Q6H PRN Administration Pain Hydrocodone Bitart/Acetaminophen 1 tab 03/05/20 21:00 03/06/20 20:25 Hydrocodone/Acetaminophen 5/325 Mg Tablet PO 1 tab HS PRN Administration Pain Aspirin 81 mg 03/05/20 09:00 03/07/20 09:26 Aspirin 81 Mg Enteric Coated Tablet PO 81 mg DAILY DANIELA Administration Atorvastatin Calcium 40 mg 03/04/20 21:00 03/06/20 20:22 Atorvastatin Calcium 40 Mg Tab PO 40 mg HS DANIELA Administration Carvedilol 25 mg 03/05/20 21:00 03/07/20 09:23 Carvedilol 25 Mg Tab PO 25 mg BID DANIELA Administration Cholecalciferol 1,000 units 03/05/20 21:00 03/07/20 09:24 Cholecalciferol 1,000 Units (25 Mcg) Tab PO 1,000 units BID DANIELA Administration Clonidine 0.1 mg 03/05/20 20:22 03/06/20 17:05 Clonidine 0.1 Mg Tab PO 0.1 mg Q4H PRN Administration SBP Greater Than 180 Diltiazem HCl 180 mg 03/06/20 21:00 03/06/20 20:23 Diltiazem Hcl Cd 180 Mg Capsule PO 180 mg QPM DANIELA Administration Fish Oil 1,000 mg 03/06/20 21:00 03/07/20 09:23 Fish Oil 1,000 Mg Cap PO 1,000 mg BID DANIELA Administration Furosemide 20 mg 03/07/20 09:00 03/07/20 09:25 Furosemide 20 Mg Tab PO 20 mg DAILY DANIELA Administration Sodium Chloride 1,000 mls @ 75 mls/hr 03/04/20 10:15 03/07/20 08:48 Normal Saline 0.9% IV 1,000 mls .[id number] DANIELA Administration Insulin Glargine 6 units/ 0.06 mls @ 0 mls/hr 03/04/20 21:00 03/06/20 20:59 Miscellaneous Medication SC 0.06 mls HS DANIELA Administration Insulin Glargine 10 units/ 0.1 mls @ 0 mls/hr 03/05/20 10:00 03/07/20 09:27 Miscellaneous Medication SC 0.1 mls QAM DANIELA Administration Insulin Human Lispro 0 units 03/04/20 10:03 03/07/20 11:41 Humalog 300 Units/3 Ml Vial SC 2 unit .MILD SLIDING SCALE PRN Administration Mild Correctional Scale Ketorolac Tromethamine 15 mg 03/05/20 14:16 03/05/20 14:23 Ketorolac Tromethamine 30 Mg/Ml Vial IVP 03/10/20 14:17 15 mg Q6H PRN Administration Pain Loratadine 10 mg 03/07/20 09:00 03/07/20 09:25 Loratadine 10 Mg Tab PO 10 mg DAILY DANIELA Administration Pantoprazole Sodium 40 mg 03/06/20 21:00 03/06/20 20:23 Pantoprazole 40 Mg Tab PO 40 mg HS DANIELA Administration Pregabalin 100 mg 03/04/20 21:00 03/06/20 20:24 Pregabalin 50 Mg Cap PO 100 mg HS DANIELA Administration Rivaroxaban 20 mg 03/05/20 17:00 03/06/20 17:05 Rivaroxaban 10 Mg Tab PO 20 mg 1700 DANIELA Administration Sotalol HCl 120 mg 03/04/20 21:00 03/07/20 09:25 Sotalol Hcl 80 Mg Tab PO 120 mg BID DANIELA Administration Thyroid 90 mg 03/05/20 09:00 03/07/20 09:26 Thyroid 90 Mg Tab PO 90 mg DAILY DANIELA Administration Thyroid 60 mg 03/05/20 09:00 03/07/20 09:26 Thyroid 60 Mg Tab PO 60 mg DAILY DANIELA Administration Zolpidem Tartrate 10 mg 03/04/20 21:00 03/06/20 20:25 Zolpidem Tartrate 5 Mg Tab PO 10 mg HS DANIELA Administration - Exam General Appearance: awake alert Eye: PERRL ENT: normocephalic atraumatic Neck: supple Respiratory: CTAB Cardiovascular: RRR Gastrointestinal: soft Extremities: no cyanosis Skin: normal turgor Neurological: no new deficit Musculoskeletal: normal tone, normal strength, no muscle wasting PSYCH: normal affect, normal behavior, A&O x 3, oriented to person, oriented to place, oriented to time Results - Labs Result Diagrams: 03/05/20 04:25 03/06/20 04:14 Lab results: WBC 4.8 thou/uL (4.8-10.8) 03/04/20 08:00 Hgb 12.9 g/dL (12.0-16.0) 03/05/20 04:25 Hct 37.8 % (36.0-47.0) 03/05/20 04:25 MCV 87.6 fL (78.0-98.0) 03/04/20 08:00 Plt Count 164 thou/uL (130-400) 03/05/20 04:25 Neutrophils % 73.6 % (42.0-75.0) 03/04/20 08:00 Sodium 141 mmol/L (136-145) 03/06/20 04:14 Potassium 3.7 mmol/L (3.5-5.1) 03/06/20 04:14 Chloride 112 mmol/L (98-107) H 03/06/20 04:14 Carbon Dioxide 19 mmol/L (23-31) L 03/06/20 04:14 BUN 20 mg/dL (9.8-20.1) 03/06/20 04:14 Creatinine 0.97 mg/dL (0.6-1.1) 03/06/20 04:14 Glucose 171 mg/dL (83-110) H 03/06/20 04:14 Calcium 9.5 mg/dL (7.8-10.44) 03/06/20 04:14 Total Bilirubin 1.0 mg/dL (0.2-1.2) 03/04/20 08:00 AST 16 U/L (5-34) 03/04/20 08:00 ALT 23 U/L (8-55) 03/04/20 08:00 Alkaline Phosphatase 115 U/L (40-110) H 03/04/20 08:00 Troponin I 0.021 ng/mL (< 0.028) 03/04/20 08:00 Serum Total Protein 8.6 g/dL (6.0-8.3) H 03/04/20 08:00 Albumin 4.3 g/dL (3.4-4.8) 03/04/20 08:00 Urine Ketones Negative mg/dL (Negative) 03/04/20 11:10 Urine Blood 1+ (Negative) A 03/04/20 11:10 Urine Nitrite Negative (Negative) 03/04/20 11:10 Ur Leukocyte Esterase Negative Juan/uL (Negative) 03/04/20 11:10 Urine RBC 4-6 HPF (0-3) A 03/04/20 11:10 Urine WBC 4-6 HPF (0-3) A 03/04/20 11:10 Ur Squamous Epith Cells 0-3 HPF (0-3) 03/04/20 11:10 Urine Bacteria None Seen HPF (None Seen) 03/04/20 11:10 - Radiology Interpretation CT scan - head Status: image reviewed by me, report reviewed by me Additional Comment: Head CT negative for acute intracranial pathology. PN A/P (1) Lacunar infarct, acute Code(s): I63.81 - OTHER CEREB INFRC DUE TO OCCLS OR STENOSIS OF SMALL ARTERY Status: Acute (2) TIA (transient ischemic attack) Code(s): G45.9 - TRANSIENT CEREBRAL ISCHEMIC ATTACK, UNSPECIFIED Status: Deleted (3) STEPH (acute kidney injury) Code(s): N17.9 - ACUTE KIDNEY FAILURE, UNSPECIFIED Status: Acute (4) Atrial fibrillation Code(s): I48.91 - UNSPECIFIED ATRIAL FIBRILLATION Status: Chronic (5) CAD (coronary artery disease) Code(s): I25.10 - ATHSCL HEART DISEASE OF PIL[place] STATION CORONARY ARTERY W/O ANG PCTRS Status: Acute (6) Chronic anticoagulation Code(s): Z79.01 - ENDOSCOPY SUPPORT SPECIALIST (CURRENT) USE OF ANTICOAGULANTS Status: Chronic (7) CKD (chronic kidney disease), stage III Code(s): N18.3 - CHRONIC KIDNEY DISEASE, STAGE 3 (MODERATE) * DO NOT USE * Status: Acute (8) Diabetes mellitus type 2, uncontrolled Code(s): E11.65 - TYPE 2 DIABETES MELLITUS WITH HYPERGLYCEMIA Status: Chronic - Plan Daily Plan: plan discussed w/ family, PT/OT Ms. Goff is a 84-year-old female with history significant for hypertension, chronic kidney disease, atrial fibrillation and s/p place maker placement prese nted with dysarthria right facial droop, dysphagia and right-sided weakness. Head CT did not reveal any acute intracranial pathology. MRI of the brain is not possible due to incompatible pacemaker device. She continues to have problem with swallowing but there is improvement in dysarthria. Most likely tiny lacunar brainstem infarct which could not be completely ruled out since MRI is not possible due to pacemaker. Patient completed modified barium swallow and tolerating modified diet. Neurochecks every 4 hours. Continue high intensity statin for secondary stroke prevention. Telemetrypatient has atrial fibrillation. Continue Xarelto for an atrial fibrillation and also for secondary stroke prevention. Carotid Dopplers did not reveal hemodynamically significant stenosis. Strict control of blood pressure and blood glucose. Continue home medications PT/OT DVT prophylaxis Continue medical management per primary team. Plan discussed in detail with the patient, patient's daughter , patient's primary hospitalist Dr. Jiménez and during MDR rounds.
[2020-03-07 15:12] VITALS: BP 175/84; TEMP 97.7
--- NOTE | 2020-03-08 01:42 | DIS ---
DATE OF ADMISSION: 03/05/2020 DATE OF DISCHARGE: 03/07/2020 DISCHARGE DIAGNOSES: 1. Acute lacunar infarct. 2. Acute kidney injury. 3. Atrial fibrillation. 4. Coronary artery disease. 5. Chronic kidney disease. 6. Diabetes mellitus type 2. DISCHARGE MEDICATIONS: 1. Aspirin 81 mg orally daily. 2. Atorvastatin 40 mg orally nightly. 3. Amlodipine 10 mg orally daily. 4. Carvedilol 25 mg orally twice daily. 5. Vitamin D3 1000 units orally b.i.d. 6. Diltiazem 180 mg orally nightly. 7. Jyothi 180 mg orally daily. 8. Fish oil 1000 mg orally twice daily. 9. Furosemide 20 mg orally daily. 10. [place] 5 one tablet at night as needed for pain. 11. Pregabalin 200 mg orally nightly. HISTORY OF PRESENT ILLNESS AND HOSPITAL COURSE: The patient is an 84-year-old female with past medical history of atrial fibrillation, hypertension, and chronic kidney disease, who presented to the hospital with new onset dysarthria, facial droop, and dysphagia with right-sided weakness. Initial CT scan of the head did not show any acute abnormalities. MRI of the brain was not performed due to presence of an incompatible pacemaker. The patient's symptoms improved gradually throughout her hospital stay. She was started on aspirin and atorvastatin for secondary prevention, and she will continue her anticoagulation with rivaroxaban. Echocardiogram was performed, which did not show any thrombi, vegetations, masses, PFO, or ASD. Job ID: [id number]
--- NOTE | 2020-03-09 16:27 | EKG ---
Test Reason : Blood Pressure : / mmHG Vent. Rate : 076 BPM Atrial Rate : 076 BPM P-R Int : 216 ms QRS Dur : 144 ms QT Int : 486 ms P-R-T Axes : -21 092 -19 degrees QTc Int : 546 ms Atrial-paced rhythm with prolonged AV conduction Right bundle branch block T wave abnormality, consider inferolateral ischemia Abnormal ECG Confirmed by BISMARK MORGAN DO ([id number]), material expeditor SOHAN BRIGHT ([id number]) on 03/09/2020 4:27:07 PM Referred By: Confirmed By:BISMARK MORGAN DO
== END 2020-03-07 16:13 | disposition home or self-care (01) | DRG 64 ==
LOC: ERS 07:58 → ERHOLD 10:11 → 2SE 21:26 → OBSVTOIN 03-05 09:25
PROVIDERS: ADMIT Internal Medicine; ATTEND Internal Medicine
DX: I63.9 Cerebral infarction, unspecified (principal); G93.41 Metabolic encephalopathy; N17.9 Acute kidney failure, unspecified; G81.91 Hemiplegia, unspecified affecting right dominant side; E87.1 Hypo-osmolality and hyponatremia; R29.810 Facial weakness; Z96.652 Presence of left artificial knee joint; R13.10 Dysphagia, unspecified; E83.52 Hypercalcemia; E03.9 Hypothyroidism, unspecified; I48.91 Unspecified atrial fibrillation; Z79.899 Other long term (current) drug therapy; Z87.891 Personal history of nicotine dependence; Z90.49 Acquired absence of other specified parts of digestive tract; Z95.0 Presence of cardiac pacemaker; Z90.710 Acquired absence of both cervix and uterus; E11.65 Type 2 diabetes mellitus with hyperglycemia; E78.5 Hyperlipidemia, unspecified; N18.9 Chronic kidney disease, unspecified; E11.22 Type 2 diabetes mellitus with diabetic chronic kidney disease; I12.9 Hypertensive chronic kidney disease with stage 1 through stage 4 chronic kidney disease, or unspecified chronic kidney disease; Z20.828 Contact with and (suspected) exposure to other viral communicable diseases
CPT/HCPCS: 36415; 36416; 70450; 74230; 80048; 80053; 80061; 81003; 81015; 82565; 83036; 83735; 84484; 85014; 85018; 85025; 85049; 85610; 85730; 87635; 93005; 93306; 93880; 94760; G0378; J1815; J1885; J2405; U0003

== ENCOUNTER 2020-09-19 12:06 | Outpatient (CLI) | payer MEDICARE, BC ==
[2020-09-19 14:08] LABS: Hemoglobin 13.1 g/dL (12.0-15.5); Mean Corpuscular Hemoglobin 29.6 pg (27.0-33.0); Mean Corpuscular Volume 92.5 fl (81.6-98.3); Mean Platelet Volume 10.4 fl (7.4-10.4); Platelet Count 202 10x3/uL (150-450); RBC Distribution Width 13.9 % (11.5-14.5); Red Blood Cell (RBC) Count 4.42 10x6/uL (3.90-5.03); White Blood Cell (WBC) Count 3.5 10x3/uL (3.5-10.5)
[2020-09-19 14:33] LABS: MDiff Complete? YES
[2020-09-19 14:37] LABS: Anion Gap 13 mmol/L (10-20); BUN (Urea Nitrogen) 23 mg/dL (9.8-20.1); Calc. Creatinine Clearance 0 mL/min (70-130); Calcium 10.1 mg/dL (7.8-10.44); Carbon Dioxide 24 mmol/L (23-31); Chloride 107 mmol/L (98-107); Glucose 88 mg/dL (83-110); Potassium 5.3 mmol/L (3.5-5.1); Sodium 139 mmol/L (136-145)
[2020-09-19 14:38] LABS: Band 1 % (5-11); Eosinophils 11 % (0-10); Lymphocytes 34 % (21-51); Monocytes 14 % (0-10); Neutrophil 40 % (42-75)
[2020-09-19 14:39] LABS: Platelet Morphology Comment Appears Adequate
[2020-09-19 21:58] LABS: SARS-CoV-2 PCR by NAA Not Detected (NotDetected)
== END 2020-09-19 12:07 | disposition home or self-care (01) ==
LOC: LABBT 12:06
PROVIDERS: ATTEND Optometrist
DX: Z01.812 Encounter for preprocedural laboratory examination (principal); Z20.822 Contact with and (suspected) exposure to COVID-19; I48.0 Paroxysmal atrial fibrillation
CPT/HCPCS: 80048; 85025; U0003; U0005; 87635

== ENCOUNTER 2020-09-20 10:13 | Day surgery (SDC) | payer MEDICARE, BC ==
[2020-09-19 14:04] VITALS: BMI 30.1
[2020-09-20] MEDS ORDERED: PROPOFOL 200 MG/20 ML VIAL ONE (11:27)
== END 2020-09-20 12:42 | disposition home or self-care (01) ==
LOC: CCL 10:13
PROVIDERS: ATTEND Internal Medicine Cardiovascular Disease
PROC: 5A2204Z Restoration of Cardiac Rhythm, Single (ICD-10-PCS; principal; 2020-09-20)
DX: I48.3 Typical atrial flutter (principal); I48.0 Paroxysmal atrial fibrillation; I25.10 Atherosclerotic heart disease of native coronary artery without angina pectoris; E03.9 Hypothyroidism, unspecified; E78.5 Hyperlipidemia, unspecified; I12.9 Hypertensive chronic kidney disease with stage 1 through stage 4 chronic kidney disease, or unspecified chronic kidney disease; E11.22 Type 2 diabetes mellitus with diabetic chronic kidney disease; N18.30 Chronic kidney disease, stage 3 unspecified; E78.2 Mixed hyperlipidemia; Z86.73 Personal history of transient ischemic attack (TIA), and cerebral infarction without residual deficits; Z91.018 Allergy to other foods; Z95.0 Presence of cardiac pacemaker
CPT/HCPCS: 92960; 93005; 93010; J2704

== ENCOUNTER 2020-11-09 19:02 | Inpatient (IN) | payer MEDICARE, BC ==
[2020-11-09 20:11] LABS: #Eosinphils 0.4 thou/uL (0.0-0.7); #Lymphocytes 1.1 thou/uL (1.20-3.40); #Monocytes 0.6 thou/uL (0.11-0.59); #Neutrophils 5.1 thou/uL (1.40-6.50); %Basophils 0.2 % (0.0-1.0); %Eosinophils 5.1 % (0.0-10.0); %Lymphocytes 15.5 % (21.0-51.0); %Monocytes 8.8 % (0.0-10.0); %Neutrophils 70.4 % (42.0-75.0); Hemoglobin 12.7 g/dL (12.0-16.0); Mean Corpuscular HGB CONC 31.4 g/dL (32.0-36.0); Mean Corpuscular Hemoglobin 29.3 pg (27.0-31.0); Mean Corpuscular Volume 93.4 fL (78.0-98.0); Platelet Count 229 thou/uL (130-400); RBC Distribution Width 12.1 % (11.5-14.5); Red Blood Cell (RBC) Count 4.32 mill/uL (4.20-5.40); White Blood Cell (WBC) Count 7.2 thou/uL (4.8-10.8)
[2020-11-09 20:22] LABS: INR-International Normal Ratio 1.9; Prothrombin Time 21.8 sec (12.0-14.7)
[2020-11-09 20:23] LABS: PTT 47.6 sec (22.9-36.1)
[2020-11-09 20:26] LABS: ALT (SGPT) 14 U/L (8-55); AST (SGOT) 21 U/L (5-34); Albumin 3.9 g/dL (3.4-4.8); Alkaline Phosphatase 76 U/L (40-110); Anion Gap 17 mmol/L (10-20); BUN (Urea Nitrogen) 21 mg/dL (9.8-20.1); Bilirubin, Total 0.8 mg/dL (0.2-1.2); CK (CPK) 34 U/L (29-168); Calc. Creatinine Clearance 0 mL/min (70-130); Calcium 9.7 mg/dL (7.8-10.44); Carbon Dioxide 16 mmol/L (23-31); Chloride 109 mmol/L (98-107); Globulin 3.7 g/dL (2.4-3.5); Glucose 204 mg/dL (83-110); Potassium 4.6 mmol/L (3.5-5.1); Protein, Total 7.6 g/dL (5.8-8.1); Sodium 137 mmol/L (136-145)
[2020-11-09] MEDS ORDERED: Diltiazem 125 MG/25 ML ONE (21:18)
[2020-11-09] MEDS ORDERED: Sodium Bicarb 50 MEQ/50 ML Abboject 8.4% SYRINGE IVP SCH (22:30)
[2020-11-09 23:52] LABS: Troponin I 0.038 ng/mL (< 0.028)
[2020-11-10] MEDS ORDERED: Diltiazem 125 MG in Sodium Chloride 0.9% 100 ML IVPB SCH (00:15)
[2020-11-10] MEDS ORDERED: Rivaroxaban 10 MG TAB PO SCH ×4 (00:15→21:00)
[2020-11-10] MEDS ORDERED: Sodium Chloride 0.9% 1,000 ML IV SCH (00:30)
[2020-11-10] MEDS ORDERED: Acetaminophen 325 MG TAB PO PRN (00:41)
[2020-11-10] MEDS ORDERED: Ondansetron PF 4 MG/2 ML Vial IVP PRN (00:41)
[2020-11-10] MEDS ORDERED: Zolpidem Tartrate 5 MG TAB PO PRN (00:48)
[2020-11-10] MEDS ORDERED: HYDROcodone/Acetaminophen 5/325 mg Tablet PO PRN (00:49)
[2020-11-10] MEDS ORDERED: Pregabalin 75 MG CAP PO SCH ×2 (02:15→21:00)
[2020-11-10 02:22] LABS: #Eosinphils 0.2 thou/uL (0.0-0.7); #Lymphocytes 1.1 thou/uL (1.20-3.40); #Monocytes 0.6 thou/uL (0.11-0.59); #Neutrophils 5.6 thou/uL (1.40-6.50); %Basophils 0.2 % (0.0-1.0); %Eosinophils 2.1 % (0.0-10.0); %Lymphocytes 14.3 % (21.0-51.0); %Monocytes 8.2 % (0.0-10.0); %Neutrophils 75.2 % (42.0-75.0); Hemoglobin 12.8 g/dL (12.0-16.0); Mean Corpuscular HGB CONC 32.2 g/dL (32.0-36.0); Mean Corpuscular Volume 93.2 fL (78.0-98.0); Mean Platelet Volume 7.6 fL (7.4-10.4); Platelet Count 226 thou/uL (130-400); RBC Distribution Width 12.2 % (11.5-14.5); Red Blood Cell (RBC) Count 4.26 mill/uL (4.20-5.40); White Blood Cell (WBC) Count 7.4 thou/uL (4.8-10.8)
[2020-11-10 02:46] LABS: Troponin I 0.068 ng/mL (< 0.028)
[2020-11-10 03:04] LABS: Anion Gap 18 mmol/L (10-20); BUN (Urea Nitrogen) 21 mg/dL (9.8-20.1); Calc. Creatinine Clearance 0 mL/min (70-130); Calcium 9.3 mg/dL (7.8-10.44); Carbon Dioxide 15 mmol/L (23-31); Chloride 110 mmol/L (98-107); Glucose 134 mg/dL (83-110); Magnesium 1.6 mg/dL (1.6-2.6); Potassium 4.1 mmol/L (3.5-5.1); Sodium 139 mmol/L (136-145)
[2020-11-10 04:56] VITALS: BMI 28.3
[2020-11-10 05:19] VITALS: BP 116/58
[2020-11-10 06:21] LABS: Troponin I 0.084 ng/mL (< 0.028)
[2020-11-10] MEDS ORDERED: Carvedilol 25 MG TAB PO SCH ×3 (08:00→09:00)
[2020-11-10] MEDS ORDERED: Aspirin 81 mg Enteric Coated Tablet PO SCH (09:00)
[2020-11-10] MEDS ORDERED: Sotalol HCl 80 MG TAB PO SCH ×2 (09:00)
[2020-11-10] MEDS ORDERED: Minoxidil 2.5 MG TAB PO SCH (09:00)
[2020-11-10] MEDS ORDERED: Levothyroxine Sodium 112 MCG TAB PO SCH (09:00)
[2020-11-10] MEDS ORDERED: Non-Formulary Item 1 EACH (Rivaroxaban [Xarelto] 20 MG Tablet) PO SCH (09:00)
[2020-11-10] MEDS ORDERED: Non-Formulary Item 1 EACH (Sotalol Hcl [Sotalol] 120 MG Tablet) PO SCH (09:00)
[2020-11-10 11:25] VITALS: TEMP 98.2
[2020-11-10] MEDS ORDERED: tiZANidine HCl 4 MG TAB PO SCH (21:00)
[2020-11-10] MEDS ORDERED: Non-Formulary Item 1 EACH (Pregabalin [Pregabalin] 100 MG Capsule) PO SCH (21:00)
[2020-11-10] MEDS ORDERED: Zolpidem Tartrate 5 MG TAB PO SCH (21:00)
[2020-11-10] MEDS ORDERED: Non-Formulary Item 1 EACH (Zolpidem Tartrate [Ambien] 10 MG Tablet) PO SCH (21:00)
[2020-11-10] MEDS ORDERED: Pregabalin 50 MG CAP PO SCH (21:00)
== END 2020-11-10 14:50 | disposition home or self-care (01) | DRG 309 ==
LOC: ERS 19:02 → IMCU/EMU 22:20
PROVIDERS: ADMIT Internal Medicine; ATTEND Internal Medicine
DX: I48.0 Paroxysmal atrial fibrillation (principal); N17.9 Acute kidney failure, unspecified; I24.8 Other forms of acute ischemic heart disease; Z66 Do not resuscitate; E03.9 Hypothyroidism, unspecified; E78.00 Pure hypercholesterolemia, unspecified; I12.9 Hypertensive chronic kidney disease with stage 1 through stage 4 chronic kidney disease, or unspecified chronic kidney disease; N18.9 Chronic kidney disease, unspecified; Z96.652 Presence of left artificial knee joint; Z96.612 Presence of left artificial shoulder joint; I25.10 Atherosclerotic heart disease of native coronary artery without angina pectoris; E86.0 Dehydration; Z90.49 Acquired absence of other specified parts of digestive tract; Z90.710 Acquired absence of both cervix and uterus; Z79.01 Long term (current) use of anticoagulants; Z79.890 Hormone replacement therapy; Z79.899 Other long term (current) drug therapy; Z87.891 Personal history of nicotine dependence; Z88.8 Allergy status to other drugs, medicaments and biological substances
CPT/HCPCS: 36415; 36416; 71045; 80048; 80053; 82550; 83735; 84443; 84484; 85025; 85610; 85730; 93005; 96365; 96366; 96376

== ENCOUNTER 2020-12-04 10:11 | Inpatient (IN) | payer MEDICARE, BC ==
[2020-12-03 11:13] VITALS: BMI 28.4
[2020-12-04] MEDS ORDERED: TRULICITY 0.75 MG SC SCH (12:00)
[2020-12-04] MEDS ORDERED: PROPOFOL 200 MG/20 ML VIAL ONE (12:30)
[2020-12-04] MEDS ORDERED: Furosemide 20 MG/2 ML VIAL ONE (13:30)
[2020-12-04] MEDS ORDERED: Furosemide 20 MG/2 ML VIAL SLOW IVP SCH (13:45)
[2020-12-04] MEDS ORDERED: cloNIDine 0.1 MG TAB PO PRN (13:48)
[2020-12-04] MEDS ORDERED: Minoxidil 2.5 MG TAB PO PRN (13:54)
[2020-12-04] MEDS ORDERED: Cyanocobalamin 1000 MCG/ML VIAL IM SCH (14:00)
[2020-12-04] MEDS ORDERED: HYDROcodone/Acetaminophen 5/325 mg Tablet ONE (20:13)
[2020-12-04] MEDS: HYDROcodone/Acetaminophen 5/325 mg Tablet PO PRN (20:14)
[2020-12-04] MEDS ORDERED: Rivaroxaban 10 MG TAB PO SCH (21:00)
[2020-12-04] MEDS: Pregabalin 50 MG CAP PO SCH (21:22)
[2020-12-04] MEDS: Zolpidem Tartrate 5 MG TAB PO SCH (21:22)
[2020-12-04] MEDS: Sotalol HCl 80 MG TAB PO SCH (21:23)
[2020-12-04] MEDS: Carvedilol 25 MG TAB PO SCH (21:24)
[2020-12-04] MEDS: tiZANidine HCl 4 MG TAB PO SCH (21:28)
[2020-12-05 05:12] LABS: Hemoglobin 9.7 g/dL (12.0-16.0)
[2020-12-05 05:35] LABS: Anion Gap 11 mmol/L (10-20); BUN (Urea Nitrogen) 32 mg/dL (9.8-20.1); Calc. Creatinine Clearance 37 mL/min (70-130); Calcium 8.3 mg/dL (7.8-10.44); Carbon Dioxide 27 mmol/L (23-31); Chloride 108 mmol/L (98-107); Glucose 128 mg/dL (83-110); Potassium 3.6 mmol/L (3.5-5.1); Sodium 142 mmol/L (136-145)
[2020-12-05] MEDS: Levothyroxine Sodium 112 MCG TAB PO SCH (06:00)
[2020-12-05] MEDS: Carvedilol 25 MG TAB PO SCH ×2 (08:54→20:17)
[2020-12-05] MEDS: Furosemide 20 MG TAB PO SCH (08:54)
[2020-12-05] MEDS: Sotalol HCl 80 MG TAB PO SCH ×2 (08:54→20:16)
[2020-12-05] MEDS: Fish Oil 1,000 MG CAP PO SCH (08:54)
[2020-12-05] MEDS: Aspirin 81 mg Enteric Coated Tablet PO SCH (08:54)
[2020-12-05] MEDS: Potassium Chloride 10 MEQ TAB PO SCH (08:54)
[2020-12-05] MEDS: Loratadine 10 MG TAB PO SCH (08:55)
[2020-12-05] MEDS: Cholecalciferol 1,000 UNITS (25 MCG) TAB PO SCH (08:55)
[2020-12-05] MEDS: HYDROcodone/Acetaminophen 5/325 mg Tablet PO PRN (14:27)
[2020-12-05] MEDS: Rivaroxaban 15 MG TAB PO SCH (16:53)
[2020-12-05] MEDS: Pregabalin 50 MG CAP PO SCH (20:15)
[2020-12-05] MEDS: Zolpidem Tartrate 5 MG TAB PO SCH (20:16)
[2020-12-05] MEDS: tiZANidine HCl 4 MG TAB PO SCH (20:17)
[2020-12-06] MEDS: Levothyroxine Sodium 112 MCG TAB PO SCH (05:51)
[2020-12-06] MEDS: Potassium Chloride 10 MEQ TAB PO SCH (08:22)
[2020-12-06] MEDS: Sotalol HCl 80 MG TAB PO SCH (08:22)
[2020-12-06] MEDS: Aspirin 81 mg Enteric Coated Tablet PO SCH (08:22)
[2020-12-06] MEDS: Carvedilol 25 MG TAB PO SCH (08:22)
[2020-12-06] MEDS: Loratadine 10 MG TAB PO SCH (08:22)
[2020-12-06] MEDS: Cholecalciferol 1,000 UNITS (25 MCG) TAB PO SCH (08:22)
[2020-12-06] MEDS: Furosemide 20 MG TAB PO SCH (08:23)
[2020-12-06] MEDS: HYDROcodone/Acetaminophen 5/325 mg Tablet PO PRN (08:23)
[2020-12-06] MEDS: Fish Oil 1,000 MG CAP PO SCH (08:23)
[2020-12-06] MEDS ORDERED: Docusate 100 MG CAP PO PRN (09:43)
[2020-12-06 14:02] LABS: Hemoglobin 10.7 g/dL (12.0-16.0)
[2020-12-06 16:09] VITALS: BP 139/76; TEMP 97.7
[2020-12-06] MEDS ORDERED: Potassium Chloride 10 MEQ TAB PO SCH (16:15)
[2020-12-06] MEDS: Rivaroxaban 15 MG TAB PO SCH (17:10)
== END 2020-12-06 17:25 | disposition home or self-care (01) | DRG 291 ==
LOC: SDC 10:11 → 2NO 13:40
PROVIDERS: ADMIT Internal Medicine Cardiovascular Disease; ATTEND Internal Medicine Cardiovascular Disease
PROC: 5A2204Z Restoration of Cardiac Rhythm, Single (ICD-10-PCS; principal; 2020-12-04)
DX: I11.0 Hypertensive heart disease with heart failure (principal); J96.01 Acute respiratory failure with hypoxia; I50.33 Acute on chronic diastolic (congestive) heart failure; I48.0 Paroxysmal atrial fibrillation; I25.10 Atherosclerotic heart disease of native coronary artery without angina pectoris; D64.9 Anemia, unspecified; I08.1 Rheumatic disorders of both mitral and tricuspid valves; Z91.018 Allergy to other foods; Z95.0 Presence of cardiac pacemaker; Z85.51 Personal history of malignant neoplasm of bladder; Z90.710 Acquired absence of both cervix and uterus; Z88.8 Allergy status to other drugs, medicaments and biological substances
CPT/HCPCS: 36415; 71045; 80048; 82274; 85014; 85018; 92960; 93005; 93010; 93306; J1940; J2704; J3420

== ENCOUNTER 2020-12-13 08:40 | Inpatient (IN) | payer MEDICARE, BC ==
[2020-12-13 08:57] LABS: #Eosinphils 0.4 thou/uL (0.0-0.7); #Lymphocytes 0.8 thou/uL (1.20-3.40); #Monocytes 0.8 thou/uL (0.11-0.59); #Neutrophils 6.7 thou/uL (1.40-6.50); %Eosinophils 4.7 % (0.0-10.0); %Lymphocytes 9.6 % (21.0-51.0); %Monocytes 8.8 % (0.0-10.0); %Neutrophils 76.9 % (42.0-75.0); Mean Corpuscular HGB CONC 31.2 g/dL (32.0-36.0); Mean Corpuscular Hemoglobin 29.3 pg (27.0-31.0); Mean Corpuscular Volume 93.9 fL (78.0-98.0); Mean Platelet Volume 8.2 fL (7.4-10.4); Platelet Count 188 thou/uL (130-400); RBC Distribution Width 14.8 % (11.5-14.5); Red Blood Cell (RBC) Count 3.74 mill/uL (4.20-5.40); White Blood Cell (WBC) Count 8.7 thou/uL (4.8-10.8)
[2020-12-13 08:59] LABS: Actual Bicarbonate (HCO3v) 27 mEq/L (22-28); Analyzer IN Cardio ER; Base Excess -1.5 mEq/L (-2.0 to +3.0); Calcium, Ionized (venous) 1.11 mmol/L (1.16-1.32); Chloride (VBG) 105 mmol/L (98-106); Potassium (VBG) 4.34 mmol/L (3.70-5.30); Sodium 140.9 mmol/L (133-146); pH (venous) 7.25 (7.32-7.43)
[2020-12-13 09:07] LABS: INR-International Normal Ratio 2.5; Prothrombin Time 26.7 sec (12.0-14.7)
[2020-12-13 09:08] LABS: PTT 55.7 sec (22.9-36.1)
[2020-12-13 09:25] LABS: ALT (SGPT) 21 U/L (8-55); AST (SGOT) 40 U/L (5-34); Albumin 3.4 g/dL (3.4-4.8); Alkaline Phosphatase 187 U/L (40-110); Anion Gap 12 mmol/L (10-20); BUN (Urea Nitrogen) 43 mg/dL (9.8-20.1); Bilirubin, Total 0.8 mg/dL (0.2-1.2); Calc. Creatinine Clearance 0 mL/min (70-130); Calcium 8.8 mg/dL (7.8-10.44); Carbon Dioxide 28 mmol/L (23-31); Chloride 104 mmol/L (98-107); Globulin 3.8 g/dL (2.4-3.5); Glucose 180 mg/dL (83-110); Lipase 11 U/L (8-78); Potassium 4.4 mmol/L (3.5-5.1); Protein, Total 7.2 g/dL (5.8-8.1); Sodium 140 mmol/L (136-145)
[2020-12-13 09:42] LABS: Acetaminophen Less than 6.0 mcg/mL (10.0-30.0); Alcohol Less than 10 mg/dL (Less than 10); Salicylate Less than 8.0 mg/dL (15.0-30.0)
[2020-12-13 09:53] LABS: Free T4 (Free Thyroxine) 0.94 ng/dL (0.70-1.48)
[2020-12-13 09:54] LABS: Bilirubin Negative (Negative); Blood, Urine 1+ (Negative); Clarity Clear (Clear); Glucose, Urine (Dipstick) Normal (Negative); Ketone, Urine Negative (Negative); Leukocyte Negative Leu/uL (Negative); Nitrite Negative (Negative); Protein, Urine (Dipstick) 10 mg/dL (Neg-Trace); Specific Gravity, Urine 1.012 (1.002-1.036); Squamous Epithelial None Seen HPF (0-3); Urobilinogen Normal mg/dL (Less than 2); pH, Urine 6.5 (5.0-9.0)
[2020-12-13 10:04] LABS: Bacteria/HPF 1+ HPF (None Seen)
[2020-12-13] MEDS ORDERED: Iopamidol-370 76% 500 ML 1 ML ONE (10:35)
[2020-12-13] MEDS ORDERED: Levothyroxine 100 MCG SDV IVP SCH (11:45)
[2020-12-13] MEDS ORDERED: cloNIDine 0.1 MG TAB PO PRN (13:03)
[2020-12-13] MEDS ORDERED: Minoxidil 2.5 MG TAB PO PRN (13:03)
[2020-12-13] MEDS ORDERED: Furosemide 20 MG/2 ML VIAL SLOW IVP SCH (13:15)
[2020-12-13 13:18] LABS: Troponin I Less than 0.010 ng/mL (< 0.028)
[2020-12-13] MEDS ORDERED: Pantoprazole 40 MG VIAL IVP SCH (13:30)
[2020-12-13] MEDS ORDERED: Sodium Bicarbonate 50 MEQ in Sodium Chloride 0.45% 1,000 ML IV SCH (15:30)
[2020-12-13] MEDS ORDERED: CEFAZOLIN 2 GM in Premix Bag 1 BAG IVPB SCH (16:15)
[2020-12-13 16:24] LABS: Troponin I Less than 0.010 ng/mL (< 0.028)
[2020-12-13] MEDS ORDERED: HYDROcodone/Acetaminophen 5/325 mg Tablet ONE (16:47)
[2020-12-13 18:02] LABS: SARS-CoV-2 PCR by NAA Not Detected (NotDetected)
[2020-12-13] MEDS ORDERED: Pantoprazole 40 MG VIAL ONE (20:20)
[2020-12-13] MEDS ORDERED: Pregabalin 50 MG CAP PO SCH (22:00)
[2020-12-14 00:59] VITALS: BMI 29.7
[2020-12-14] MEDS: Carvedilol 25 MG TAB PO SCH ×3 (01:03→22:54)
[2020-12-14] MEDS: Sotalol HCl 80 MG TAB PO SCH ×3 (01:03→22:57)
[2020-12-14] MEDS: Levothyroxine Sodium 112 MCG TAB PO SCH (06:18)
[2020-12-14 08:40] LABS: Creatinine, Urine 55.68 mg/dL (47-110)
[2020-12-14] MEDS ORDERED: Midazolam HCl 2 mg/2 ml Vial ONE (08:56)
[2020-12-14] MEDS ORDERED: Fentanyl 100 MCG/2 ML VIAL ONE ×2 (08:56→10:25)
[2020-12-14] MEDS ORDERED: Propofol 500 MG/50 ML VIAL ONE (08:57)
[2020-12-14] MEDS ORDERED: Ketamine 50 MG/ML (10ML VIAL) ONE (08:57)
[2020-12-14] MEDS ORDERED: Levothyroxine Sodium 112 MCG TAB PO SCH (09:00)
[2020-12-14] MEDS ORDERED: Furosemide 20 MG/2 ML VIAL SLOW IVP SCH (09:00)
[2020-12-14] MEDS ORDERED: PROPOFOL 200 MG/20 ML VIAL ONE (09:33)
[2020-12-14] MEDS ORDERED: PHENYLEPHRINE-NS 100 MCG/ML 10 ML SYRINGE ONE (09:33)
[2020-12-14] MEDS ORDERED: Promethazine HCl 25 MG/ML VIAL IVPB PRN (10:17)
[2020-12-14] MEDS ORDERED: Promethazine HCl 25 MG/ML VIAL IM PRN (10:17)
[2020-12-14] MEDS ORDERED: Ondansetron HCl/PF 4 MG/2 ML Vial IVP PRN (10:17)
[2020-12-14 12:08] LABS: Hemoglobin 10.3 g/dL (12.0-16.0); Mean Corpuscular HGB CONC 31.1 g/dL (32.0-36.0); Mean Corpuscular Hemoglobin 29.7 pg (27.0-31.0); Mean Corpuscular Volume 95.7 fL (78.0-98.0); Mean Platelet Volume 8.5 fL (7.4-10.4); Platelet Count 171 thou/uL (130-400); RBC Distribution Width 15.1 % (11.5-14.5); Red Blood Cell (RBC) Count 3.46 mill/uL (4.20-5.40); White Blood Cell (WBC) Count 9.6 thou/uL (4.8-10.8)
[2020-12-14] MEDS: Cholecalciferol 1,000 UNITS (25 MCG) TAB PO SCH (12:08)
[2020-12-14] MEDS: Acetaminophen 325 MG TAB PO PRN (12:08)
[2020-12-14] MEDS: Pantoprazole 40 MG VIAL IVP SCH (12:08)
[2020-12-14 12:22] LABS: ALT (SGPT) 17 U/L (8-55); AST (SGOT) 40 U/L (5-34); Albumin 2.9 g/dL (3.4-4.8); Alkaline Phosphatase 160 U/L (40-110); Anion Gap 21 mmol/L (10-20); BUN (Urea Nitrogen) 46 mg/dL (9.8-20.1); Bilirubin, Total 0.7 mg/dL (0.2-1.2); Calc. Creatinine Clearance 33 mL/min (70-130); Carbon Dioxide 18 mmol/L (23-31); Chloride 107 mmol/L (98-107); Globulin 3.3 g/dL (2.4-3.5); Glucose 139 mg/dL (83-110); Potassium 4.5 mmol/L (3.5-5.1); Protein, Total 6.2 g/dL (5.8-8.1); Sodium 141 mmol/L (136-145)
[2020-12-14] MEDS: HYDROcodone/Acetaminophen 5/325 mg Tablet PO PRN ×2 (13:38→18:09)
[2020-12-14] MEDS ORDERED: Sodium Bicarbonate 150 MEQ in Dextrose 5% in Water 1,000 ML IV SCH (19:00)
[2020-12-14] MEDS: Morphine 2 MG/ML VIAL SLOW IVP PRN (22:31)
[2020-12-14] MEDS: Pregabalin 50 MG CAP PO SCH (22:37)
[2020-12-15 05:09] LABS: Albumin 2.7 g/dL (3.4-4.8); Anion Gap 17 mmol/L (10-20); BUN (Urea Nitrogen) 53 mg/dL (9.8-20.1); BUN/Creatinine Ratio 27.18; Calc. Creatinine Clearance 26 mL/min (70-130); Calcium 7.7 mg/dL (7.8-10.44); Carbon Dioxide 24 mmol/L (23-31); Chloride 103 mmol/L (98-107); Glucose 164 mg/dL (83-110); Phosphorus 5.2 mg/dL (2.3-4.7); Potassium 4.1 mmol/L (3.5-5.1); Sodium 140 mmol/L (136-145)
[2020-12-15] MEDS ORDERED: Ondansetron PF 4 MG/2 ML Vial IVP PRN (06:44)
[2020-12-15] MEDS ORDERED: Albumin 25% 25 GM/100 ML BOT IVPB SCH (07:10)
[2020-12-15] MEDS: Morphine 2 MG/ML VIAL SLOW IVP PRN (07:16)
[2020-12-15] MEDS: Levothyroxine Sodium 112 MCG TAB PO SCH (08:12)
[2020-12-15] MEDS: HYDROcodone/Acetaminophen 5/325 mg Tablet PO PRN ×2 (08:23→15:06)
[2020-12-15] MEDS: Pantoprazole 40 MG VIAL IVP SCH (08:24)
[2020-12-15] MEDS: Sotalol HCl 80 MG TAB PO SCH ×2 (08:24→21:35)
[2020-12-15] MEDS: Carvedilol 25 MG TAB PO SCH ×2 (08:24→21:35)
[2020-12-15] MEDS: Cholecalciferol 1,000 UNITS (25 MCG) TAB PO SCH (08:24)
[2020-12-15] MEDS: traMADol HCl 50 MG TAB PO PRN (11:37)
[2020-12-15] MEDS: Acetaminophen 325 MG TAB PO PRN (11:37)
[2020-12-15] MEDS: Pregabalin 50 MG CAP PO SCH (21:33)
[2020-12-16] MEDS: Morphine 2 MG/ML VIAL SLOW IVP PRN (00:27)
[2020-12-16 04:58] LABS: Albumin 3.1 g/dL (3.4-4.8); Anion Gap 21 mmol/L (10-20); BUN (Urea Nitrogen) 62 mg/dL (9.8-20.1); BUN/Creatinine Ratio 26.16; Calc. Creatinine Clearance 22 mL/min (70-130); Calcium 7.8 mg/dL (7.8-10.44); Carbon Dioxide 21 mmol/L (23-31); Chloride 100 mmol/L (98-107); Glucose 159 mg/dL (83-110); Phosphorus 5.7 mg/dL (2.3-4.7); Potassium 4.6 mmol/L (3.5-5.1); Sodium 137 mmol/L (136-145)
[2020-12-16] MEDS: Levothyroxine Sodium 112 MCG TAB PO SCH (05:44)
[2020-12-16] MEDS: Acetaminophen 325 MG TAB PO PRN (08:30)
[2020-12-16] MEDS: Pantoprazole 40 MG VIAL IVP SCH (08:31)
[2020-12-16] MEDS: traMADol HCl 50 MG TAB PO PRN (08:31)
[2020-12-16] MEDS: Carvedilol 25 MG TAB PO SCH (08:32)
[2020-12-16] MEDS: Cholecalciferol 1,000 UNITS (25 MCG) TAB PO SCH (08:32)
[2020-12-16] MEDS: Sotalol HCl 80 MG TAB PO SCH (08:32)
[2020-12-16] MEDS ORDERED: Sodium Bicarbonate 50 MEQ in Sodium Chloride 0.45% 1,000 ML IV SCH (10:00)
[2020-12-16] MEDS: Sodium Bicarbonate Tab 325 MG TAB PO SCH ×2 (10:15→10:37)
[2020-12-16] MEDS: HYDROcodone/Acetaminophen 5/325 mg Tablet PO PRN (12:06)
[2020-12-16 23:04] LABS: #Eosinphils 0.4 thou/uL (0.0-0.7); #Lymphocytes 1.2 thou/uL (1.20-3.40); #Monocytes 1.6 thou/uL (0.11-0.59); #Neutrophils 8.6 thou/uL (1.40-6.50); %Basophils 0.2 % (0.0-1.0); %Eosinophils 3.5 % (0.0-10.0); %Lymphocytes 9.8 % (21.0-51.0); %Monocytes 13.8 % (0.0-10.0); %Neutrophils 72.6 % (42.0-75.0); Mean Corpuscular HGB CONC 31.9 g/dL (32.0-36.0); Mean Corpuscular Hemoglobin 29.8 pg (27.0-31.0); Mean Corpuscular Volume 93.5 fL (78.0-98.0); Mean Platelet Volume 8.5 fL (7.4-10.4); Platelet Count 198 thou/uL (130-400); RBC Distribution Width 15.9 % (11.5-14.5); Red Blood Cell (RBC) Count 3.35 mill/uL (4.20-5.40); White Blood Cell (WBC) Count 11.9 thou/uL (4.8-10.8)
[2020-12-16 23:25] LABS: Anion Gap 17 mmol/L (10-20); BUN (Urea Nitrogen) 71 mg/dL (9.8-20.1); Calc. Creatinine Clearance 18 mL/min (70-130); Carbon Dioxide 26 mmol/L (23-31); Chloride 99 mmol/L (98-107); Potassium 4.7 mmol/L (3.5-5.1); Sodium 137 mmol/L (136-145)
[2020-12-16 23:26] LABS: Calcium 7.5 mg/dL (7.8-10.44); Glucose 125 mg/dL (83-110)
[2020-12-16] MEDS ORDERED: Sotalol HCl 80 MG TAB PO SCH (23:36)
[2020-12-17] MEDS: Carvedilol 25 MG TAB PO SCH ×2 (00:23→08:31)
[2020-12-17] MEDS: Morphine ER 15 MG TAB PO SCH ×2 (00:23→08:29)
[2020-12-17] MEDS: Sodium Bicarbonate Tab 325 MG TAB PO SCH ×2 (00:24→08:29)
[2020-12-17] MEDS: Pregabalin 50 MG CAP PO SCH (00:24)
[2020-12-17] MEDS: Sotalol HCl 80 MG TAB PO SCH (00:26)
[2020-12-17 04:56] LABS: Albumin 3.2 g/dL (3.4-4.8); Anion Gap 20 mmol/L (10-20); BUN (Urea Nitrogen) 72 mg/dL (9.8-20.1); BUN/Creatinine Ratio 22.71; Calc. Creatinine Clearance 16 mL/min (70-130); Calcium 7.7 mg/dL (7.8-10.44); Carbon Dioxide 23 mmol/L (23-31); Chloride 99 mmol/L (98-107); Glucose 127 mg/dL (83-110); Phosphorus 6.5 mg/dL (2.3-4.7); Sodium 137 mmol/L (136-145)
[2020-12-17] MEDS: Pantoprazole 40 MG VIAL IVP SCH (08:30)
[2020-12-17] MEDS: Cholecalciferol 1,000 UNITS (25 MCG) TAB PO SCH (08:30)
[2020-12-17] MEDS: Levothyroxine Sodium 112 MCG TAB PO SCH (08:30)
[2020-12-17 16:32] VITALS: BP 118/55; TEMP 97.6
== END 2020-12-17 17:00 | disposition hospice, home (50) | DRG 843 ==
LOC: ERS 08:40 → ERHOLD 12:27 → 2NO 12-14 00:22
PROVIDERS: ADMIT Internal Medicine; ATTEND Hospitalist
PROC: 0W9930Z Drainage of Right Pleural Cavity with Drainage Device, Percutaneous Approach (ICD-10-PCS; principal; 2020-12-14)
DX: C80.1 Malignant (primary) neoplasm, unspecified (principal); J96.01 Acute respiratory failure with hypoxia; N17.9 Acute kidney failure, unspecified; E87.2 Acidosis; I50.32 Chronic diastolic (congestive) heart failure; I13.0 Hypertensive heart and chronic kidney disease with heart failure and stage 1 through stage 4 chronic kidney disease, or unspecified chronic kidney disease; G93.49 Other encephalopathy; J91.0 Malignant pleural effusion; C78.02 Secondary malignant neoplasm of left lung; C78.01 Secondary malignant neoplasm of right lung; C78.7 Secondary malignant neoplasm of liver and intrahepatic bile duct; Z66 Do not resuscitate; Z20.822 Contact with and (suspected) exposure to COVID-19; Z51.5 Encounter for palliative care; E11.65 Type 2 diabetes mellitus with hyperglycemia; N18.30 Chronic kidney disease, stage 3 unspecified; E11.22 Type 2 diabetes mellitus with diabetic chronic kidney disease; I12.9 Hypertensive chronic kidney disease with stage 1 through stage 4 chronic kidney disease, or unspecified chronic kidney disease; D63.1 Anemia in chronic kidney disease; Z96.612 Presence of left artificial shoulder joint; Z96.652 Presence of left artificial knee joint; E89.0 Postprocedural hypothyroidism; I48.0 Paroxysmal atrial fibrillation; M19.90 Unspecified osteoarthritis, unspecified site; K21.9 Gastro-esophageal reflux disease without esophagitis; E86.9 Volume depletion, unspecified; T50.1X5A Adverse effect of loop [high-ceiling] diuretics, initial encounter; G89.29 Other chronic pain; M54.9 Dorsalgia, unspecified; Z85.51 Personal history of malignant neoplasm of bladder; Z90.6 Acquired absence of other parts of urinary tract; Z88.8 Allergy status to other drugs, medicaments and biological substances; Z91.018 Allergy to other foods; Z79.899 Other long term (current) drug therapy; Z79.82 Long term (current) use of aspirin; Z79.890 Hormone replacement therapy; Z95.0 Presence of cardiac pacemaker; Z79.01 Long term (current) use of anticoagulants; Z87.891 Personal history of nicotine dependence; Z90.89 Acquired absence of other organs; Z90.49 Acquired absence of other specified parts of digestive tract; Z90.710 Acquired absence of both cervix and uterus
CPT/HCPCS: 36415; 36416; 70450; 71045; 71048; 71275; 74177; 80053; 80069; 80307; 81003; 81015; 82140; 82570; 82805; 83690; 83880; 84156; 84300; 84439; 84443; 84481; 84484; 84540; 85025; 85027; 85610; 85730; 87040; 87086; 88112; 88305; 93005; 96374; 97139; C9113; J0690; J2250; J2270; J2405; J2704; J3010; J7070; P9047; Q9967; U0003; U0005